=== PATIENT | female | born 1955 | race Caucasian/White ===

== ENCOUNTER 2019-11-16 00:50 | Day surgery (SDC) | payer BC, SELFPAY ==
[2019-11-13 13:19] VITALS: BMI 30.2
[2019-11-16 06:33] VITALS: BP 127/92; PULSE 77; RESP 18; TEMP 36.4; O2SAT 96; BMI 29.2
[2019-11-16] MEDS: LACTATED RINGERS 1,000 ML 150 ML IV CONT (06:47)
--- NOTE | 2019-11-16 07:08 | WPDANESEPPF ---
Anes - Initial Pre Proc Eval Procedure: Operation Date: 11/16/19 07:30 Proposed Procedures p Screening Colonoscopy - Aquiles Cavazos MD Date/Time: 11/16/19 07:08 Surgeon: Aquiles Cavazos MD Pre Op Diagnosis: Neoplasm Screening/ Fam Hx Colon CA Patient Data Age: 64 Gender: F Height: 5 ft 6 in Weight: 82 kg Last Vital Signs Temp 36.4 C 11/16/19 06:33 Pulse 77 11/16/19 06:33 Resp 18 11/16/19 06:33 BP 127/92 H 11/16/19 06:33 Pulse Ox 96 11/16/19 06:33 Allergies Allergy/AdvReac Type Severity Reaction Status Date / Time azithromycin Allergy Mild SEVERE Verified 11/16/19 06:30 ITCHEY FEET, RASH HEEL Macrolide Antibiotics Allergy Mild Verified 11/16/19 06:30 Quinolones Allergy Mild RASH LIKE Verified 11/16/19 06:30 SUNBURNED SKIN MOXIFLOXACIN HCL Allergy Mild RASH Uncoded 11/16/19 06:30 Home Medications Medication Instructions Recorded Confirmed Type bupropion HCl 300 mg 24 hr tablet, 300 mg PO QAM 08/09/19 11/13/19 History extended release escitalopram oxalate 10 mg tablet 10 mg PO DAILY 08/09/19 11/13/19 History levothyroxine 100 mcg tablet 100 mcg PO DAILY 08/09/19 11/13/19 History Patient hx anesthesia problems: none Family hx anesthesia problems: none PMFSH Past Medical History Medical History (Updated 11/16/19 @ 07:09 by Lionel Rosas MD) Hypothyroidism ETHAN (obstructive sleep apnea) Surgical History Surgical History (Updated 11/16/19 @ 07:09 by Lionel Rosas MD) H/O: hysterectomy Family History Family History (Updated 04/18/19 @ 12:33 by DOCTOR UNKNOWN) Grandparent Acute myocardial infarction, Onset Age: 52 Father Carcinoma of colon, Onset Age: 71 Family history of emphysema Family history of chronic obstructive pulmonary disease Mother Family history of malignant neoplasm of breast in first degree relative, Onset Age: 72 Family history of chronic obstructive pulmonary disease Family history of emphysema Other Family history of malignant neoplasm of breast Social History Social History Smoking status: Never smoker Second hand tobacco smoke exposure: No Alcohol intake: current Anes - Eval Final PreProcedure Day of Procedure 11/16/19 07:08 Patient weight: overweight Heart: regular rate and rhythm Lungs: clear to auscultation Airway: Mallampati scale class II and special considerations poor opening Neurological: alert and oriented ASA classification: II Emergent: no Anesthesia type and monitoring: general GIVS and standard monitoring Informed Consent: The patient's anesthetic plan and its attendant risks and benefits were discussed with the patient/family/POA. Questions were solicited and answers provided to the satisfaction of the patient/family/POA.
--- NOTE | 2019-11-16 07:24 | P.CONGI_ITS ---
Assessment and Plan Additional Plan This is a 64-year-old white female patient seen in evaluation at the request of Dr. Stacy. patient presents for neoplasia screening. Patient's current weight appetite bowel movements are normal. She denies any blood in her stools. Her weight is stable. She denies abdominal pain. She has had no bleeding. Her bowel habits are regular Family history is significant her father had colon cancer. Her paternal uncle in several other family members on her father's side of also had colon cancer Past medical history is significant for hypothyroidism. She is previous history of hysterectomy. Current medications include bupropion, escitalopram, levothyroxine Patient reports allergy to azithromycin and quinolone Physical exam reveals her to be alert. Vital signs stable. HEENT exam unremarkable. She is anicteric. Lungs are clear to auscultation and percussion. Heart is without murmur or extra sounds. Abdominal exam bowel sounds are present soft nontender with no hepatosplenomegaly. Digital external rectal exam normal. Impression 1. Family history of colon can Plan is for colonoscopy now and at intervals in the future GI Consult Note Consult date/time: 11/16/19 07:24 HPI: Lavinia Valiente is a 64 year old female [facility] Past Medical History Medical History (Updated 11/16/19 @ 07:09 by Lionel Rosas MD) Hypothyroidism ETHAN (obstructive sleep apnea) Surgical History Surgical History (Updated 11/16/19 @ 07:09 by Lionel Rosas MD) H/O: hysterectomy Family History Family History (Updated 04/18/19 @ 12:33 by DOCTOR UNKNOWN) Grandparent Acute myocardial infarction, Onset Age: 52 Father Carcinoma of colon, Onset Age: 71 Family history of emphysema Family history of chronic obstructive pulmonary disease Mother Family history of malignant neoplasm of breast in first degree relative, Onset Age: 72 Family history of chronic obstructive pulmonary disease Family history of emphysema Other Family history of malignant neoplasm of breast Social History Social History Smoking status: Never smoker Second hand tobacco smoke exposure: No Alcohol intake: current Meds Home Medications and Allergies Home Medications Medication Instructions Recorded Confirmed Type bupropion HCl 300 mg 24 hr tablet, 300 mg PO QAM 08/09/19 11/13/19 History extended release escitalopram oxalate 10 mg tablet 10 mg PO DAILY 08/09/19 11/13/19 History levothyroxine 100 mcg tablet 100 mcg PO DAILY 08/09/19 11/13/19 History Allergies Allergy/AdvReac Type Severity Reaction Status Date / Time azithromycin Allergy Mild SEVERE Verified 11/16/19 06:30 ITCHEY FEET, RASH HEEL Macrolide Antibiotics Allergy Mild Verified 11/16/19 06:30 Quinolones Allergy Mild RASH LIKE Verified 11/16/19 06:30 SUNBURNED SKIN MOXIFLOXACIN HCL Allergy Mild RASH Uncoded 11/16/19 06:30 Vital Signs Vital Signs - 24 hr 11/16/19 06:33 Temperature 36.4 C Pulse Rate 77 Respiratory Rate 18 Blood Pressure 127/92 H Pulse Oximetry 96
[2019-11-16 07:45] VITALS: BP 96/58; PULSE 73; RESP 15; O2SAT 96
[2019-11-16 07:55] VITALS: BP 89/62; PULSE 75; RESP 20; O2SAT 98
[2019-11-16 08:05] VITALS: BP 97/70; PULSE 66; RESP 16; O2SAT 99
== END 2019-11-16 08:17 | disposition home or self-care (01) ==
PROVIDERS: PCP Family Medicine; Visit Provider Internal Medicine Gastroenterology
PROC: 0DJD8ZZ Inspection of Lower Intestinal Tract, Via Natural or Artificial Opening Endoscopic (ICD-10-PCS; CPT 45378; principal; 2019-11-16 07:30)
DX: Z12.11 Encounter for screening for malignant neoplasm of colon (principal); K57.30 Diverticulosis of large intestine without perforation or abscess without bleeding; K64.8 Other hemorrhoids; Z80.0 Family history of malignant neoplasm of digestive organs; E03.9 Hypothyroidism, unspecified; G47.33 Obstructive sleep apnea (adult) (pediatric)
CPT/HCPCS: 45378; J2704; J7120

== ENCOUNTER 2025-07-02 19:31 | Emergency (ER) | payer MEDICARE, SELFPAY ==
--- OUTSIDE RECORDS SUMMARY | 2024-11-09 08:30 | XMS_ITS | Continuity of Care Document ---
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 Name Role Phone Mario Bishop OD Unavailable Unavailable Allergies, Adverse Reactions, Alerts Substance Reaction Status Criticality azithromycin Hives(mild)Hives(mild) Active Low Medications Medication Instructions Dosage Effective Dates (start - stop) Status Comments levothyroxine 100 mcg tablet take 1 tablet by oral route every day 100 MCG - Active famotidine 20 mg tablet take 1 tablet by oral route 2 times every day 20 MG - Active escitalopram 10 mg tablet take 1 tablet by oral route every day 10 MG - Active bupropion HCl XL 300 mg 24 hr tablet, extended release take 1 tablet by oral route every day 300 MG - Active buspirone 15 mg tablet take 1 tablet by oral route 2 times every day 15 MG - Active Procedures Procedure Date REFRACTION EYE EXAM ESTABLISHED PATIENT REFRACTION EYE EXAM ESTABLISHED PATIENT REFRACTION EYE EXAM ESTABLISHED PATIENT REFRACTION EYE EXAM, NEW PATIENT Advance Directives Directive Yes / No Effective Date File Name No Information Encounters Encounter Description Practice Location Reason(s) For Visit Diagnoses Date Provider Providers Copied on Encounter [facility], [facility], [address], [place], [id number] , [place] tel:[phone] [facility] vision exam (chief complaint) Myopia, right eyeHypermetropia, left eyeRegular astigmatism, bilateralPresbyopiaC ombined forms of age-related cataract, bilateral 5 Dario Martin. [address] [place] [address], [id number], [place]. tel:[phone] Referring Provider: Mario Bustillo, [address] [place] [address], [id number] . tel:[phone] [facility], [address] [place] [address], [id number] , [place] tel:[phone] [facility] vision exam (chief complaint) Myopia, right eyeHypermetropia, left eyeRegular astigmatism, bilateralPresbyopiaC ombined forms of age-related cataract, bilateralPuckering of macula, left eye 4 Dario Martin. [address] [place] [address], [id number], [place]. tel:[phone] Referring Provider: Mario Bustillo, [address] [place] [address], [id number] . tel:[phone] [facility], [address] [place] [address], [id number] , [place] [phone] [facility] vision exam (chief complaint) Myopia, right eyeHypermetropia, left eyeRegular astigmatism, bilateralPresbyopiaA ge-related nuclear cataract, bilateralOther specified postprocedural states 2 Lesly Quezada. [address] [place] [address], [id number], [place]. tel:[phone] Referring Provider: Pilar Beatty, [address] [place] [address], [id number] . tel:[phone] [facility], [address] [place] [address], [id number] , [place] [phone] [facility] decreased vision (chief complaint) Myopia, right eyeHypermetropia, left eyeRegular astigmatism, bilateralPresbyopiaA ge-related nuclear cataract, bilateralOther corneal scars and opacities Realwendy Betheath. [facility], [place], [place], [id number], [place]. 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 vision exam (chief complaint). Description: The 69 year old patient presents for Refractive Error OU, CAT OU and ERM OS for evaluation of vision exam in the right eye and left eye. Pt notes NVA is blurry w gls rx and she will experience headaches when on her phone and reading fine print. DVA OU good and stable w gls. Pt notes glare issues OU. Patient denies: pain or discomfort. Pt is not using any OTC AT. Reason For Referral Reason For Referral No Information History Of Present Illness Encounter Date Complaint History Of Prese nt Illness vision exam The 69 year old patient presents for Refractive Error OU, CAT OU and ERM OS for evaluation of vision exam in the right eye and left eye. Pt notes NVA is blurry w gls rx and she will experience headaches when on her phone and reading fine print. DVA OU good and stable w gls. Pt notes glare issues OU. Patient denies: pain or discomfort. Pt is not using any OTC AT. vision exam The 68 year old patient presents for evaluation of Refractive Error OU, Cataract OU and Hx of Lasik OU. Pt states D&N vision has been mostly good and stable since last exam in the right eye and left eye cc. Pt notes she feels that vision has decreased just slightly but not a dramatic change. Patient denies: pain or discomfort. Pt is not using eye meds or OTC AT. vision exam The 67 year old patient presents for f/u Refractive Error OU, Cataract OU, and Corneal scars. Patient states that she hasn't noticed any changes in vision or any problems since last exam 1 year ago. Vision good and stable and constant D & N c gls. Patient denies: pain or discomfort. Patient not using any eye meds or Generic AT. Patient does wear a CPAP now since prior exam. decreased vision The 66 Year old female presents for decreased vision in the right eye and left eye since last exam. It affects both near and far vision c gls. Pt reports night time driving has become more difficult. The patient denies COVID-19 symptoms - temperature normal and pain or discomfort. Pt is not using any OTC AT or eye meds. Pt has a HX or Lasik OS. 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
--- NOTE | ~2025-07-02 | CT_ITS ---
EXAMINATION: CT abdomen pelvis w con DATE: 07/03/2025 01:25 INDICATION: Epigastric abdominal pain radiating to the back. TECHNIQUE: Computed tomography (CT) of the abdomen and pelvis was performed with 100 mL Omnipaque 350 intravenous contrast. Automated exposure control and iterative reconstruction technique were employed. The dose-length product was 842.65 mGy-cm. COMPARISON: CT abdomen and pelvis 01/15/2005 FINDINGS: The visualized portions of lung bases demonstrate mild atelectasis. No pleural effusion. The heart size is normal. There is a trace pericardial effusion. There is a paraesophageal hiatal hernia where the gastric fundus remains below the diaphragm. There are gastric fundus is distended. The liver, gallbladder, spleen, pancreas, adrenal glands, and left kidney are normal. There are cysts in right kidney measuring up to 4.1 cm. There is diverticulosis of the colon without evidence of diverticulitis. The appendix is normal. There are no dilated loops of bowel. There are no pathologically enlarged lymph nodes. There is no free intraperitoneal fluid. There is moderate thoracic and lumbar spondy losis. There is mild chronic anterior wedging of multiple thoracic vertebral bodies. IMPRESSION: 1. Paraesophageal hiatal hernia with distention of the gastric fundus below the diaphragm, which causes mass effect on the gastric antrum at the esophageal hiatus. Reviewed, dictated and finalized at location E. IMPRESSION: 1. Paraesophageal hiatal hernia with distention of the gastric fundus below the diaphragm, which causes mass effect on the gastric antrum at the esophageal hi atus.
--- NOTE | ~2025-07-02 | XR_ITS ---
XR chest 2V HOSTORY: epigastric pain/nausea COMPARISON:[ None] FINDINGS: Frontal and lateral views of the chest were obtained. The lungs are clear. Left retrocardiac airspace opacity is noted. The heart size is normal in size. Pulmonary vasculature is unremarkable. Osseous structures are intact. IMPRESSION: No acute lung findings.] Left retrocardiac airspace opacity suggestive of a moderate-sized hiatal hernia. Reviewed, dictated and finalized at location S. IMPRESSION: No acute lung findings.] Left retrocardiac airspace opacity suggestive of a moderate-sized hiatal hernia .
[2025-07-02 19:37] VITALS: BP 150/98; PULSE 88; RESP 20; TEMP 36.6; O2SAT 97
--- NOTE | 2025-07-02 19:40 | ECG_ITS ---
Test Date: 2025-07-02 19:45:04 Measurements Intervals [place] Rate: 75 P: 38 ME: 186 QRS: -46 QRSD: 80 T: 38 QT: 358 QTc: 402 Interpretive Statements SINUS RHYTHM POSSIBLE RIGHT VENTRICULAR CONDUCTION DELAY LEFT ANTERIOR FASCICULAR BLOCK POSSIBLE ANTERIOR MYOCARDIAL INFARCTION , OF INDETERMINATE AGE BASELINE ARTIFACT- I, II, III, AVR, AVL, V1 ABNORMAL ECG No previous ECG available for comparison Electronically Signed On 07-03-2025 05:30:15 CDT by Christopher Lynch D.O.
[2025-07-02 21:31] VITALS: BP 153/91; PULSE 76; RESP 16; TEMP 36.6; O2SAT 97
[2025-07-02 21:39] LABS: Hematocrit 40.7 % (37.0-47.0); Hemoglobin 13.5 g/dL (12.0-15.0); Immature Granulocyte Percent A 0.1 % (0-0.5); Lymphocytes Absolute Auto 0.88 K/mm3 (0.9-3.2); Mean Corpuscular HGB Conc 33.2 g/dl (32-36); Mean Corpuscular Hemoglobin 29.4 pg (26-34); Mean Corpuscular Volume 88.7 fl (80-100); Nucleated Red Blood Cells Absolute Auto 0.000 K/mm3 (0.0-0.012); Nucleated Red Blood Cells Perc 0.0 % (0.0-0.2); Platelet Count Result 239 k/mm3 (150-375); Red Blood Count 4.59 M/mm3 (4.2-5.4); White Blood Count 6.8 K/mm3 (4.5-10.0)
[2025-07-02 21:49] LABS: Alanine Aminotransferase 32 U/L (6-35); Albumin Level 4.8 g/dL (3.5-5.1); Alkaline Phosphatase 114 U/L (38-126); Anion Gap 11 mmol/L (4-12); Aspartate Amino Transferase 40 U/L (14-36); Bilirubin,Total 0.4 mg/dL (0.2-1.3); Blood Urea Nitrogen 26 mg/dL (7-17); Calcium 9.6 mg/dL (8.4-10.2); Carbon Dioxide 24 mmol/L (22-30); Chloride 103 mmol/L (98-107); Estimated CRCL calculation 54 ml/min; Estimated Glomerular Filt Rate 57; Glucose 123 mg/dL (65-110); Lipase 125 U/L (23-300); Potassium 4.1 mmol/L (3.4-5.0); Sodium 138 mmol/L (137-145); Total Protein 8.4 g/dL (6.3-8.2)
[2025-07-02 21:51] LABS: INR 1.1; Prothrombin Time 13.7 Seconds (11.1-14.7)
[2025-07-02 21:52] LABS: Partial Thromboplastin Time 34.1 Seconds (22.3-36.8)
[2025-07-02 22:01] LABS: Troponin I < 0.012 ng/mL (0.000-0.034)
[2025-07-02 22:19] VITALS: BP 137/89; PULSE 75; RESP 19; O2SAT 95
[2025-07-03 00:01] VITALS: BP 134/85; PULSE 73; RESP 19; O2SAT 93
--- NOTE | 2025-07-03 00:08 | ECG_ITS ---
Test Date: 2025-07-03 00:14:28 Measurements Intervals [place] Rate: 75 P: 53 MI: 194 QRS: -27 QRSD: 85 T: 29 QT: 391 QTc: 437 Interpretive Statements SINUS RHYTHM POSSIBLE RIGHT VENTRICULAR CONDUCTION DELAY CONSIDER ANTERIOR INFARCT, AGE INDETERMINATE BORDERLINE ST-T WAVE ABNORMALITY- DIFFUSE LEADS BASELINE ARTIFACT- I, II, AVR, AVL, V1-V2 ABNORMAL ECG Compared to ECG 07/02/2025 19:45:04 Left anterior fascicular block no longer present Electronically Signed On 07-03-2025 05:36:03 CDT by Christopher Lynch D.O.
[2025-07-03 00:42] LABS: Troponin I < 0.012 ng/mL (0.000-0.034)
--- OUTSIDE RECORDS SUMMARY | 2025-07-03 00:50 | XMS_ITS | Clinical Summary ---
Author Organization [facility] Address [address] [place] [address] Phone Care Team Providers Care Manager Aerospace Name Role Phone Liseth Zamora MD Primary Care Provider Shannon Flores RN Unavailable Unavailable Ludivina Damon MD Unavailable Lynn Carney RN Unavailable Unavaila Ruy Arora MD Unavailable [phone] Amina Allen APRN, PAPER REELER Unavailable [phone] Allergies Active Allergy Reactions Criticality Noted Date Comments Moxifloxacin Hives 04/03/2022 Azithromycin Itching 09/20/2004 Macrolides And Ketolides Unknown 05/18/2022 Quinolones Unknown 05/18/2022 Medications Dupilumab (Dupixent) 300 MG/2ML Solution Pen-injector 2 mL by Subcutaneous route every 14 days. Every other Wednesday Active Probiotic Product (Probiotic Daily) Capsule Take 1 Capsule by mouth 2 times daily. 60 Capsule 023 Active MULTIPLE VITAMIN PO Take 1 Capsule by mouth daily. Active Cholecalciferol (Vitamin D3) 125 MCG (5000 UT) Capsule Take 1 Capsule by mouth daily. Active Ferrous Sulfate (Iron) 325 (65 Fe) MG Tablet Take 1 Tablet by mouth daily. Active anastrozole (ARIMIDEX) 1 MG Tablet Take 1 mg by mouth daily. per Katty Gigi Active CALCIUM PO Take by mouth. Acti ve Cetirizine HCl (ZYRTEC PO) Take by mouth. Act sherie guaiFENesin (MUCINEX PO) Take by mouth. Ac tive Pseudoephedrine HCl (DECONGESTANT PO) Take by mouth. Activ e buPROPion (WELLBUTRIN) 300 MG TABLET SR 24 HR XL tabletIndication s:Anxiety and depression Take 1 Tablet by mouth every morning. 90 Tablet 3 024 Active montelukast (SINGULAIR) 10 MG TabletIndication s:Asthma due to environmental allergies TAKE 1 TABLET EVERY EVENING 90 Tablet 3 025 Active famotidine (PEPCID) 20 MG TabletIndication s:Hypothyroidism , unspecified type,Gastroesoph ageal reflux disease, unspecified whether esophagitis present TAKE 1 TABLET TWICE A DAY 180 Tablet 3 025 Active levothyroxine (SYNTHROID) 100 MCG TabletIndication s:Hypothyroidism , unspecified type TAKE 1 TABLET DAILY 90 Tablet 3 025 Active naltrexone (DEPADE) 50 MG TabletIndication s:Class 1 obesity with alveolar hypoventilation, serious comorbidity, and body mass index (BMI) of 33.0 to 33.9 in adult Take 1 Tablet by mouth daily. 90 Tablet 025 Active escitalopram (LEXAPRO) 20 MG TabletIndication s:Anxiety and depression TAKE 1 TABLET DAILY 90 Tablet 3 025 Active escitalopram (LEXAPRO) 20 MG TabletIndication s:Anxiety and depression TAKE 1 TABLET DAILY 90 Tablet 3 024 2024 Discontinued tirzepatide-weig ht management (Zepbound) 2.5 MG/0.5ML Solution Auto-injectorInd ications:Morbid obesity,ETHAN (obstructive sleep apnea) 2.5 mg by Subcutaneous route once a week. 2 mL 025 2024 Discontinued(M ed List Clean Up) Active Problems Problem Noted Date Diagnosed Date Colon cancer screening 11/13/2024 Overview (11/13/2024): Father with colon cancer at 70. Paternal brother with colon cancer at 79. Paternal and and great aunt with colon cancer. Colonoscopy last 2019 in [place]. Colonoscopy 11/13/2024. Repeat due 10/2029. Hypothyroidism 12/21/2022 Infiltrating ductal carcinoma of female breast 0 12/11/2022 Overview (12/11/2022): Added automatically from request for surgery [id number] Pilonidal cyst 11/17/2022 Bilateral malignant neoplasm of breast in female 11/17/2022 Anxiety and depression 11/17/2022 Morbid obesity 10/28/2022 GERD (gastroesophageal reflux disease) Hyperlipidemia 10/28/2022 ETHAN (obstructive sleep apnea) 10/28/2022 Class 1 obesity with alveola r hypoventilation, serious comorbidity, and body mass index (BMI) of 33.0 to 33.9 in adult 07/15/2022 Prediabetes 07/15/2022 Elevated fasting blood sugar 05/18/2022 Esophageal dysphagia 05/18/2022 Decreased GFR 05/18/2022 Asthma due to environmental allergies 05/18/2022 Encounters Date Type Department Care Team Description 06/21/2025 9:40 AM CDT Office Visit [address] [address] Liseth Zamora MD Mixed hyperlipidemia (Primary Dx); Prediabetes; Hypothyroidism, unspecified type Discharge Disposition: Discharged to home or Selfcare 06/19/2025 Travel 06/14/2025 9:30 AM CDT Outpatient Clinic Visit [facility] [address] [place] [address] Elina Rosenbaum APRN, Luisa Lane APRN, PAPER REELER Class 1 obesity with alveolar hypoventilation, serious comorbidity, and body mass index (BMI) of 33.0 to 33.9 in adult (HCC) (Primary Dx) Discharge Disposition: Discharged to home or Selfcare 06/13/2025 Travel 06/11/[address] [phone] Liseth Zamora MD Medication Refill 06/04/2025 Telephone [facility] [address] [place] [phone] Luisa Thornton APRN, MYLES Medication Refill 2025 10:00 AM CDT Outpatient Clinic Visit [facility] [address] [place] [phone] Luisa Thornton APRN, MYLES Morbid obesity (HCC) (Primary Dx); ETHAN (obstructive sleep apnea) Discharge Disposition: Discharged to home or Selfcare 05/28/2025 Travel 05/17/2025 9:30 AM CDT Outpatient Clinic Visit [facility] [address] [place] [phone] Elina Rosenbaum APRN, DAVID Class 1 obesity with alveolar hypoventilation, serious comorbidity, and body mass index (BMI) of 33.0 to 33.9 in adult (HCC) (Primary Dx); Mixed hyperlipidemia; Prediabetes; Hypothyroidism, unspecified type; Asthma due to environmental allergies; ETHAN (obstructive sleep apnea); Gastroesophageal reflux disease, unspecified whether esophagitis present Discharge Disposition: Discharged to home or Selfcare 05/17/2025 Patient Outreach [facility] [address] [place] [address] Lynn Carney RN 05/17/2025 Travel 04/04/2025 9:00 AM CDT Education [facility] [address] [place] [phone] Liseth Zamora MD Mount, Christine M, RN Obesity, Class I, BMI 30-34.9 (Primary Dx) Discharge Disposition: Discharged to home or Selfcare 04/03/2025 Travel from Last 3 Months Immunizations Immunization Administration Dates Next Due Influenza Vaccine, Quadrivalent, PF 07/04/2019 Influenza, High-dose, Quadrivalent 06/17/2021, Influenza, Quadrivalent, Adjuvanted 06/07/2023,1 Influenza, Trivalent, Adjuvanted, PF 06/21/2024 Influenza, high-dose, trivalent, PF 06/17/2021 Pneumococcal conjugate PCV20 , polysaccharide [id number] conjugate, adjuvant, PF 07/13/2022 Zoster Vaccine, live 06/16/2017 Family History Medical History Relation Name Comments Chronic Obstructive Pulmonary Disease Father Colon Cancer Father Emphysema Father Breast Cancer Mother Chronic Obstructive Pulmonary Disease Mother Ovarian Cancer Neg Hx Relation Name Status Comments Father Mother Social History Tobacco Use Types Packs/Day Years Used Date Smoking Tobacco: Never Passive Smoke Exposure: Never Smokeless Tobacco: Never Tobacco Cessation:Counseling Given: Not Answered Alcohol Use Standard Drinks/Week Comments Yes 1 (1 standard drink = 0.6 oz pur e alcohol) [facility] Utilities Answer Date Recorded In the past 12 months has e electric, gas, oil, or water company threatened to shut off services in your home? No 12/19/2024 Social Connection and Isolation Panel Answer Date Recorded In a typical week, how many times do you talk on the phone with family, friends, or neighbors? More than three times a week 12/19/2024 How often do you get togethe r with friends or relatives? Twice a week 12/19/2024 How often do you attend chur ch or religion services? Never 12/19/2024 Do you belong to any clubs o r organizations such as buddhist groups, unions, fraternal or athletic groups, or school groups? Yes 12/19/2024 How often do you attend meet ings of the clubs or organizations you belong to? More than 4 times per year 12/19/2024 Are you , , di vorced, , never , or living with a partner? 12/19/2024 AUDIT-C Answer Date Recorded Q1: How often do you have a drink containing alcohol? Never 12/19/2024 Q2: How many drinks containi ng alcohol do you have on a typical day when you are drinking? Patient does not drink Q3: How often do you have si x or more drinks on one occasion? Never 12/19/2024 Overall Financial Resource Strain (CARDIA) Answe r Date Recorded How hard is it for you to pa y for the very basics like food, housing, medical care, and heating? Not very hard 12/19/2024 PHQ-2 Answer Date Recorded Total Score - Questions 1-9 6 03/20 [facility] [place] [facility] Occupat ional Health - Occupational Stress Questionnaire Answer Date Recorded Do you feel stress - tense, restless, nervous, or anxious, or unable to sleep at night because your mind is troubled all the time - these days? Not at all 12/19/2024 Exercise Vital Sign Answer Date Recorde d On average, how many days pe r week do you engage in moderate to strenuous exercise (like a brisk walk)? 3 days 12/19/2024 On average, how many minutes do you engage in exercise at this level? 20 min 12/19/2024 Hunger Vital Sign Answer Date Recorded Within the past 12 months, y ou worried that your food would run out before you got the money to buy more. Never true 12/20/19 25 Within the past 12 months, t he food you bought just didn't last and you didn't have money to get more. Never true 12/19/2024 PRAPARE - Transportation Answer Date Re corded In the past 12 months, has l ack of transportation kept you from medical appointments or from getting medications? No 09/2024 In the past 12 months, has l ack of transportation kept you from meetings, work, or from getting things needed for daily living? No 12/19/2024 Housing Stability Vital Sign Answer Khari e Recorded In the last 12 months, was t here a time when you were not able to pay the mortgage or rent on time? No 10/26/2023 In the last 12 months, how many places have you lived? 1 10/26/2023 In the last 12 months, was t here a time when you did not have a steady place to sleep or slept in a retirement (including now)? No 10/26/2023 Housing Stability Vital Sign Answer Khari e Recorded In the last 12 months, was t here a time when you were not able to pay the mortgage or rent on time? No 12/19/2024 In the past 12 months, how m any times have you moved where you were living? 0 12/19/2024 At any time in the past 12 m onths, were you homeless or living in a retirement (including now)? No 12/19/2024 Education Answer Date Recorded What is the highest level of school you have completed or the highest degree you have received? Associate degree: occupational, technical, or vocational program 11/16/2022 Sexually Active Control Partners Comments Not Currently Comments No Sex and Gender Information Value Date Recorded Sex Assigned at Not on file Legal Sex Female 10:19 PM CDT Gender Identity Not on file Sexual Orientation Not on file Last Filed Vital Signs Vital Sign Reading Time Taken Comments Blood Pressure 100/62 06/21/2025 9:35 AM CDT Pulse 63 06/21/2025 9:35 AM CDT Temperature 36.5 C (97.7 F) 06/21/2025 9:35 AM CDT Respiratory Rate 20 06/21/2025 9:35 AM CDT Oxygen Saturation 94% 06/21/2025 9:35 AM CDT Inhaled Oxygen Concentration - - Weight 91.7 kg (202 lb 3.2 oz) 06/21/2025 9:35 A M CDT Height 167.6 cm (5' 6) 06/21/2025 9:35 AM CDT Body Mass Index 32.64 06/21/2025 9:35 AM CDT Plan of Treatment Upcoming Encounters Date Type Department Care Team (Latest Contact Info) Description 07/12/2025 9:30 AM CDT Outpatient Clinic Visit [facility] [address] [place] [address] Luisa Thornton APRN, PAPER REELER [address] [place] [address] Discharge Disposition: Discharged to home or Selfcare 10/11/2025 9:30 AM CONSTRUCTION OR LEAK GANG LABORER Outpatient Clinic Visit [facility] [address] [place] [address] Luisa Thornton APRN, PAPER REELER [address] [place] [place] [address] Discharge Disposition: Discharged to home or Selfcare 11/15/2025 9:30 AM CONSTRUCTION OR LEAK GANG LABORER Outpatient Clinic Visit [facility] [address] [place] [address] Luisa Thornton APRN, PAPER REELER [address] [place] [address] Discharge Disposition: Discharged to home or Selfcare 12/13/2025 9:30 AM CDT [facility]patient [facility] [address] [place] [address] Luisa Thornton APRN, PAPER REELER [address] [place] [address] 12/13/2025 11:00 AM CDT [facility] [place] [facility] [address] [place] [phone] Ludivina Damon MD [address] [place] [address] 12/20/2025 9:40 AM CDT Office Visit [facility] [address] [place] [address] Lsieth Zamora MD [address] [place] [address] Health Maintenance Due Date Last Done Comments TdaP Immunization 1955 Cologuard 2000 Immunochemical Fecal Occult Blood 2000 Respiratory Syncytial Virus (RSV) Immunization (Adult) (1 - Risk 60-74 years 1-dose series) 2015 Medicare Initial AWV [id number] 05/21/2021 Mammogram Unilateral 10/13/2023 10/13/2022, 08/06/2022, 07/07/2022 Zoster Immunization (2 of 2) 05/09/2025 03/14/2025, 06/16/2017 Influenza Immunization (#1) 2025 10/10/2023, 06/07/2023, 07/13/2022, Additional history exists SARS-COV-2 Immunization ( season) 2025 06/21/2024, 07/14/2023, 08/25/2022, Additional history exists DEXA Bone Density 03/08/2027 03/08/2025, 02/04/2023 Colonoscopy 11/12/2029 11/13/2024, 11/16/2019 Colorectal Cancer Screening 11/12/2029 Pneumococcal Immunization (50+ years) Completed 07/13/2022 Pneumococcal Immunization Combined Discontinued 07/13/2022 Mammogram Discontinued 10/13/2022, 07/07/2022 Hepatitis C Virus (HCV) Screening Completed 10/15/2022 Hepatitis B Immunization Aged Out No longer eligible based on patient's age to complete this topic Human Papillomavirus (HPV) Immunization Aged Out No longer eligible based on patient's age to complete this topic Meningococcal Immunization (ACWY) Aged Out No longer eligible based on patient's age to complete this topic Rotavirus Immunization Aged Out No lo nger eligible based on patient's age to complete this topic Goals Goal Patient Goal Type Associated Problems Recent Progress Patient-Stated? Author Patient will have better understanding of her cancer diagnosis Care Coordination No Shannon Flores, RN Note: Goal Reviewed with: patient Readiness to change: Ready to change Department associated with goal: [facility] Steps to achieve goal: Patient will learn the pathophysiology of her cancer diagnosis, including the implications of hormone receptors Patient will learn about typical treatment options for breast cancer 3. Patient will learn the different members of her care team Pursue weight loss Healthy Lifestyle On track(06/14 10:18 AM CDT) No Pricilla Cifuentes, RN Note: Goal Reviewed with: patient Readiness to change: Ready to change Department associated with goal: [facility] Steps to achieve goal: Attend onboarding Short term goal(s): help me feel better terminal operations manager goal(s): same as above Goal weight: 160 lbs. Procedures Procedure Name Priority Date/Time Associated Diagnosis Comments [facility]LO BONE DENSITOMETRY AXIAL SKELETON Routine 03/08/2025 1:59 PM CDT Malignant neoplasm of upper-inner quadrant of right female breast, unspecified estrogen receptor status (HCC) Malignant neoplasm of overlapping sites of left female breast, unspecified estrogen receptor status (HCC) group home (current) use of aromatase inhibitors COLONOSCOPY Routine 11/13/2024 2:42 PM CONSTRUCTION OR LEAK GANG LABORER Colon cancer screening HEPATITIS C ANTIBODY Routine 10/15/2022 1:31 PM CONSTRUCTION OR LEAK GANG LABORER Encounter for observation for other suspected diseases and conditions ruled out Papular atopic dermatitis Dyshidrosis Encounter for long-term (current) use of medications Special screening examination for viral disease [facility] MRI BREAST W/WO CONTRAST,BILATERAL Less Than 2 weeks 10/13/2022 4:22 PM CONSTRUCTION OR LEAK GANG LABORER Atypical ductal hyperplasia of right breast Ductal hyperplasia, atypical, breast Other specified disorders of breast from Last 3 Months or Most Recently Relevant to Health Maintenance Results * [facility] BONE DENSITOMETRY AXIAL SKELETON (03/08/2025 1:59 PM CDT) Anatomical Region Laterality Modality BODY N/A Other 03/08/2025 1:59 PM CDT Impressions 03/08/2025 2:06 PM CDT IMPRESSION: 1. WHO Classification: Osteopenia. Narrative 03/08/2025 2:06 PM CDT DICTATING PHYSICIAN: Dipak Delong M.D. -- [facility] EXAM: [facility] BONE DENSITOMETRY AXIAL SKELETON 03/08/2025 1:59 PM HISTORY: Malignant neoplasm of upper-inner quadrant of right female breast, Malignant neoplasm of overlapping sites of left female breast, group home (current) use of aromatase inhibitors COMPARISON: 02/04/2023. FINDINGS: Femoral Neck BMD: 0.638 g/sq cm . Femoral Neck T-score: -1.9. Previously -1.5, denoting a change of -6.0%, at the 95% confidence level. Total Hip BMD: 0.791 g/sq cm. Total Hip T-score: -1.2. Previously -0.9, denoting a change of -4.7%, at the 95% confidence level. Total L-Spine BMD: 0.935 g/sq cm. Total L-Spine T-score: -1.0. Previously -0.5, denoting a change of -6.1%, at the 95% confidence level. Ten Year Fracture Risk: - Major Osteoporotic Fracture: 10%. - Hip Fracture: 1.7%. Procedure Note Dipak Delong MD - 03/08/2025 DICTATING PHYSICIAN: Dipak Delong M.D. -- [facility] EXAM: [facility] BONE DENSITOMETRY AXIAL SKELETON 03/08/2025 1:59 PM HISTORY: Malignant neoplasm of upper-inner quadrant of right femalebreast, Malignant neoplasm of overlapping sites of left female breast,group home (current) use of aromatase inhibitors COMPARISON: 02/04/2023. FINDINGS: Femoral Neck BMD: 0.638 g/sq cm . Femoral Neck T-score: -1.9. Previously -1.5, denoting a change of -6.0%,at the 95% confidence level. Total Hip BMD: 0.791 g/sq cm. Total Hip T-score: -1.2. Previously -0.9, denoting a change of -4.7%, atthe 95% confidence level. Total L-Spine BMD: 0.935 g/sq cm. Total L-Spine T-score: -1.0. Previously -0.5, denoting a change of -6.1%,at the 95% confidence level. Ten Year Fracture Risk: - Major Osteoporotic Fracture: 10%. - Hip Fracture: 1.7%. IMPRESSION: 1. WHO Classification: Osteopenia. Katty Yu MD IMG DEXA ORDERABLES F inal Result * Colonoscopy w Polypectomy (11/13/2024 2:42 PM CONSTRUCTION OR LEAK GANG LABORER) Anatomical Region Laterality Modality Endoscopy Narrative 11/13/2024 4:09 PM CONSTRUCTION OR LEAK GANG LABORER Table formatting from the original result was not included. Indication Colon cancer screening Impression Colon polyps x 3; s/p polypectomy Small hemorrhoids Family history of colon cancer Recommendation Await pathology results Repeat colonoscopy in 5 years, due: 11/12/2029 Findings Three sessile and adenomatous-appearing Anahi Is polyps measuring smaller than 5 mm in the ascending colon; performed cold snare with complete en bloc removal and retrieved specimen The ileocecal valve, appendiceal orifice, cecum, hepatic flexure, transverse colon, splenic flexure, descending colon, sigmoid colon, rectosigmoid and rectum appeared normal. Internal small hemorrhoids Details of the Procedure The patient underwent monitored anesthesia care, which was administered by an anesthesia professional. The patient's blood pressure, level of consciousness, oxygen, respirations, heart rate, ECG and ETCO2 were monitored throughout the procedure. A digital rectal exam was performed. The scope was introduced through the anus and advanced to the cecum. Retroflexion was performed in the rectum. The quality of bowel preparation was evaluated using the [place] Bowel Preparation Scale with scores of: right colon = 2, transverse colon = 2, left colon = 2. The total BBPS score was 6. Bowel prep was adequate. The patient experienced no blood loss. The procedure was not difficult. The patient tolerated the procedure well. There were no apparent adverse events. Medications See anesthesia record. Preprocedure A history and physical has been performed, and patient medication allergies have been reviewed. The patient's tolerance of previous anesthesia has been reviewed. The risks and benefits of the procedure and the sedation options and risks were discussed with the patient. All questions were answered and informed consent obtained. ASA Class II Mild Syst II Mild Systemic Disease Events Procedure Events Event Event Time ENDO SCOPE IN TIME 11/13/2024 2:16 PM ENDO CECUM REACHED 11/13/2024 2:21 PM ENDO SCOPE OUT TIME 11/13/2024 2:42 PM Scope Type: Colonoscope [id number] Insertion time: 4m 53s Withdrawal time: 20m 49s Specimens ID Type Source Tests Collected by Time A : Gastric Bxs Tissue Stomach PATHOLOGY SURGICAL Bjorn Coleman MD 11/13/2024 1411 B : Ascending Colon Polyps Polyp Colon, Right/Ascending PATHOLOGY SURGICAL Bjorn Coleman MD 11/13/2024 1421 Disposition Patient was approved for transfer to recovery at 2:45 PM CONSTRUCTION OR LEAK GANG LABORER. Aleksander Hicks MD-GI fellow Lavinia Valiente 1955 I was present and scrubbed for the entire procedure and carried out parts of the procedure as necessary. I have reviewed the patient's findings with the fellow and agree with the documentation as noted. Small polyps which were removed. Hemorrhoids. Follow up pathology results, repeat colonoscopy in 5 years. Bjorn Coleman MD, 11/13/2024, 4:08 PM CONSTRUCTION OR LEAK GANG LABORER [facility]- Gastroenterology us Bjorn Coleman MD GI PROCEDURE ORDERABLES Fi nal Result * HEPATITIS C ANTIBODY (10/15/2022 1:31 PM CONSTRUCTION OR LEAK GANG LABORER) hepatitis C antibody 0.07 <1 S/CO [facility] ARCH [id number] 10/15/2022 11:01 PM CONSTRUCTION OR LEAK GANG LABORER [facility] Comment: Signal/Cutoff ratio < 0.79 is Nondetected Signal/Cutoff ratio 0.80-0.99 is Grayzone Signal/Cutoff ratio > 0.99 is Detected Supplemental assays are recommended if signal/cutoff ratio is >/=1.00. Signal/cutoff ratio result >/= 5.00 is 97% predictive of positivity for recombinant immunoblot assay (RIBA) and will be reported to the [place] Department of Public Health as required. Blood Venipuncture / Unknown 10/15/2022 1:31 PM CONSTRUCTION OR LEAK GANG LABORER 10/15/2022 1:32 PM CONSTRUCTION OR LEAK GANG LABORER us Jaqueline Lorenzana PAC CHEMISTRY ORDERABLES Final R esult [facility] [address] [place] [address], [place] * CARLO MRI BREAST W/WO CONTRAST,BILATERAL (10/13/2022 4:22 PM CONSTRUCTION OR LEAK GANG LABORER) Anatomical Region Laterality Modality breast Bilateral Magnetic Resonan ce 10/13/2022 4:22 PM CONSTRUCTION OR LEAK GANG LABORER Impressions 10/14/2022 2:46 PM CONSTRUCTION OR LEAK GANG LABORER IMPRESSION: 1. Abnormal areas of nodular enhancement in the breasts bilaterally. A single focus in the upper central right breast and a single focus in the subareolar left breast are found. These areas are suspicious and further evaluation with biopsy is suggested. I would begin with sonography. If these are found sonographically, ultrasound-guided biopsy may be performed. If these are not found sonographically then MRI guided biopsy may be necessary. 2. Redundant fonseca of the silicone implants. Integrity of the fonseca is not definite. If management will change based on the presence or absence of a leak, repeat MRI with implant protocol could be performed. BI-RADS assessment code: 4 suspicious abnormality, biopsy should be considered. Narrative 10/14/2022 2:46 PM CONSTRUCTION OR LEAK GANG LABORER DICTATING PHYSICIAN: Vern Smith M.D. HISTORY: Family history of breast cancer, atypical ductal hyperplasia of the right breast. EXAM: MRI of the breasts with and without contrast 10/13/2022. 20 mL of ProHance was used on a 1.5 Lisa magnet and a dedicated breast coil. FINDINGS: A scattered fibroglandular parenchymal pattern is present with a mild background of enhancement. A densely enhancing poorly demarcated mass is present in the central upper right breast adjacent to the subglandular implant. This measures about 13 mm in diameter at table height -18.73. The enhancement is rapid with rapid washout. There is an immediately adjacent area of prolonged enhancement which increases the size of the lesion to about 17 mm greatest dimension. A focal area of nodularity is present in the subareolar left breast table height -53.8. This also has dense enhancement with rapid washout. This measures about 7 mm in diameter. Morphology of the breast tissue is otherwise normal in appearance and no other suspicious areas of enhancement. No unusual adenopathy. Bilateral subglandular silicone implants are present. The fonseca of the implant appear to be redundant and the integrity of the wall of the implant is not determined with confidence on this exam. Procedure Note Vern Smith MD - 10/14/2022 DICTATING PHYSICIAN: Vern Smith M.D. HISTORY: Family history of breast cancer, atypical ductal hyperplasia ofthe right breast. EXAM: MRI of the breasts with and without contrast 10/13/2022. 20 mL of ProHance was used on a 1.5 Lisa magnet and a dedicated breastcoil. FINDINGS: A scattered fibroglandular parenchymal pattern is present with amild background of enhancement. A densely enhancing poorly demarcated massis present in the central upper right breast adjacent to the subglandularimplant. This measures about 13 mm in diameter at table height -18.73. Theenhancement is rapid with rapid washout. There is an immediately adjacentarea of prolonged enhancement which increases the size of the lesion toabout 17 mm greatest dimension. A focal area of nodularity is present inthe subareolar left breast table height -53.8. This also has denseenhancement with rapid washout. This measures about 7 mm in diameter.Morphology of the breast tissue is otherwise normal in appearance and noother suspicious areas of enhancement. No unusual adenopathy. Bilateral subglandular silicone implants are present. The fonseca of theimplant appear to be redundant and the integrity of the wall of theimplant is not determined with confidence on this exam. IMPRESSION: 1. Abnormal areas of nodular enhancement in the breasts bilaterally. Asingle focus in the upper central right breast and a single focus in thesubareolar left breast are found. These areas are suspicious and furtherevaluation with biopsy is suggested. I would begin with sonography. Ifthese are found sonographically, ultrasound- guided biopsy may beperformed. If these are not found sonographically then MRI guided biopsymay be necessary. 2. Redundant fonseca of the silicone implants. Integrity of the fonseca is notdefinite. If management will change based on the presence or absence of aleak, repeat MRI with implant protocol could be performed. BI-RADS assessment code: 4 suspicious abnormality, biopsy should beconsidered. Gisela Liz [facility] IMG MR ORDERABLES Fi nal Result from Last 3 Months or Most Recently Relevant to Health Maintenance Insurance MEDICARE [facility] Advance Directives * Full Code (Latest Code Status on File) Date Activated Date Inactivated Comments 01/11/2023 2:06 PM 01/02/2024 7:28 PM Care Teams Manager Aerospace Relationship Specialty Start Date End Date Liseth Zamora MD PCP - General Family Medicine 03/17/22 Shannon Flores RN MD Oncology Nurse Navigator 12/11/22 Ludivina Damon MD MD Consulting Physician Cardiovascular Disease - Cardiology 05/18/23 Lynn Carney RN Oncology Nurse Navigator 06/30/23 Ruy Lopez MD [address] [place] [address] Consulting Physician General Surgery 03/27/24 Amina Allen APRN, PAPER REELER [address] [place] [address] Nurse Practitioner Advanced Practice Nurse 12/05/24
--- OUTSIDE RECORDS SUMMARY | 2025-07-03 00:50 | XMS_ITS | Clinical Summary ---
Author Organization [facility] Address [address] [place] [address] Care Team Providers Care Washroom Attendant Name Role Phone Unavailable Primary Care Provider Unavailabl e Source Comments PLEASE NOTE, if this patient is a minor, it may be UNLAWFUL to discuss sensitive information that is contained in these records (such as FAMILY PLANNING, MENTAL HEALTH or SUBSTANCE ABUSE) with the minor patient's parent or other person without the patient's specific authorization.[facility] Allergies Active Allergy Reactions Criticality Noted Date Comments Azithromycin Itching,Rash,Hives Low 09/20/2004 Quinolones Hives,Itching,Rash,Unknown Low 2 Medications anastrozole (ARIMIDEX) 1 mg tablet Take 1 mg by mouth daily. Active buPROPion HCL (WELLBUTRIN XL) 300 mg 24 hr tablet Take 300 mg by mouth every morning. 10/26/2023 Active cholecalciferol (VITAMIN D-3) 125 mcg (5,000 unit) capsule Take 1 Capsule by mouth daily. Active dupilumab (DUPIXENT PEN) 300 mg/2 mL pnij Inject 2 mL into the skin. Active ferrous sulfate 325 mg (65 mg iron) tablet Take 1 Tablet by mouth daily. Active famotidine (PEPCID) 20 mg tablet 20 mg 2 (two) times daily. 08/30/2022 Active L. acidophilus/Bif id. animalis 32 billion cell cap Take 1 Capsule by mouth twice a day. 12/30/2022 Active levothyroxine 100 mcg tablet Take 100 mcg by mouth daily. 03/12/2025 Active montelukast (SINGULAIR) 10 mg tablet 10 mg every evening. 10/16/2024 Active semaglutide, weight loss, (WEGOVY) 0.25 mg/0.5 mL pnij Inject 0.25 mg into the skin once a week. 02/13/2025 Active escitalopram (LEXAPRO) 20 mg tablet Take 20 mg by mouth daily. 06/16/2024 Active Active Problems No known active problems Encounters Date Type Department Care Team Description 05/11/2025 1:30 PM CDT Office Visit [address] [address] Gabino Foster, GERTRUDIS from Last 3 Months Social History Tobacco Use Types Packs/Day Years Used Date Smoking Tobacco: Never Smokeless Tobacco: Never Tobacco Cessation:Counseling Given: Not Answered Social Connections Answer Date Recorded How often do you see or talk to people that you care about and feel close to? (For example: talking to friends on phone, visiting friends or family, going to taoism or club meetings) 1 05/11/2025 Financial Resource Strain Answer Date R ecorded How hard is it for you to pa y for the very basics like food, housing, heating, medical care, and medications? 1 05/11 Stress Answer Date Recorded Do you feel these kinds of stress these days? 1 05/11/2025 Transportation Needs Answer Date Record ed In the past 12 months, has l ack of transportation kept you from medical appointments, meetings, work or from getting things needed for daily living? 1 05/11/2025 Housing Stability Answer Date Recorded What is your living situation today? 1 05/11/2025 Employment Answer Date Recorded Are you currently employed? 1 04/21 Comments Unknown Sex and Gender Information Value Date Recorded Sex Assigned at Not on file Legal Sex Female 5:52 AM PDT Gender Identity Female 05/11/2025 5:56 AM PDT Sexual Orientation Don't know 05/11/2025 5: 56 AM PDT Plan of Treatment Health Maintenance Due Date Last Done Comments Lipid Screening 1955 TSH Monitoring 1955 Hypertension Screening (#1) 1973 Medicare Annual Wellness Visit 1973 Imm-DTaP/Tdap/Td (1 - Tdap) 1974 Breast Cancer Screening (Mammogram) 1995 CT Colonography 2000 Colonoscopy 2000 Colorectal Cancer Screening 2000 FIT/gFOBT 2000 Fecal DNA 2000 Flexible Sigmoidoscopy 2000 Imm-Zoster, Recombinant (2 of 3) 08/11/2017 06/16/20 17 Alcohol and Drug Screen 09/20/2024 [id number] (1 - season) 2025 Imm-Influenza (#1) 2025 06/21/2024, 0 06/07/2023, 07/13/2022, Additional history exists Falls Prevention 05/11/2026 05/11/2025 Tobacco Screening 05/11/2026 05/11/2025 Diabetes Screening 12/20/2027 12/19/2024, 0 10/26/2023, 05/19/2022, Additional history exists Imm-Pneumococcal 50+ Completed 07/13/2022 Hepatitis C Screening Completed 10/15/2022 Bone Density Screening Completed 03/08/2025, 2022 Depression Annual Screen Completed 05/11/2025 Procedures Procedure Name Priority Date/Time Associated Diagnosis Comments LIMITED ORAL EVALUATION - PROBLEM FOCUSED Routine 05/11/2025 1:30 PM CDT Nonrestorable carious tooth INTRAORAL - PERIAPICAL FIRST RADIOGRAPHIC IMAGE Routine 05/11/2025 1:30 PM CDT Nonrestorable carious tooth 3 EXTRACTION ERUPTED TOOTH OR EXPOSED ROOT Routine 05/11/2025 1:30 PM CDT Nonrestorable carious tooth 4 ROOT CANAL - WISDOM (NO BILLABLE) Routine 05/11/2025 12:00 AM CDT 3 ROOT CANAL - WISDOM (NO BILLABLE) Routine 05/11/2025 12:00 AM CDT 6 RETAINER CROWN - PORCELAIN/CERAMIC Routine 05/11/2025 12:00 AM CDT 4 RETAINER CROWN - PORCELAIN/CERAMIC Routine 05/11/2025 12:00 AM CDT 5 PONTIC - PORCELAIN/CERAMIC Routine 05/11/2025 12:00 AM CDT 3 CROWN - PORCELAIN/CERAMIC Routine 05/11/2025 12:00 AM CDT 2 CROWN - PORCELAIN/CERAMIC Routine 05/11/2025 12:00 AM CDT from Last [address] [place] MEDICARE ADVANTAGE
--- OUTSIDE RECORDS SUMMARY | 2025-07-03 00:50 | XMS_ITS | Patient Health Record ---
Author Organization [facility] Address [address] [place] [address] Care Team Providers Care Equities Analyst Name Role Phone Diallo Loya [phone] Allergies Allergen (clinical drug ingredient) Drug/Non Drug Allergy documented on EMR Reaction Allergy Type Onset Date Status moxifloxacin Avelox Unknown Drug Allergy Acti ve azithromycin Zithromax Unknown Drug Allergy Acti ve Reason For Referral No Information Medications Medication SIG (Take, Route, Frequency, Duration) Notes Start Date End Date Status Montelukast Sodium 10 MG Oral; Duration: 90 Days Active Anastrozole 1 MG Oral; Duration: 90 Days Active Levothyroxine Sodium 25 MCG 1 tablet in the morning on an empty stomach Orally Once a day; Duration: 30 day(s) 02/18/2024 Active buPROPion HCl ER (SR) 200 MG 1 tablet in the morning Orally Once a day; Duration: 30 day(s) 02/18/2024 Active Escitalopram Oxalate 20 MG Oral; Duration: 90 Days Active Famotidine 20 MG Oral; Duration: 90 Days Active Problems Problem Type SNOMED Code ICD Code Onset Dates Problem Status W/U Status Risk Notes Problem Tendinitis of right rotator cuff (disorder) (219940917885606 04) Rotator cuff tendinitis, right (M75.81) Active confirmed Plan Of Treatment No Information Insurance Providers Payer Name Payer Address Payer Phone Subscriber Number Group Number Insured Name Patient Relationship to Insured Coverage Start Date Coverage End Date Medicare Part B [address] [place], [place] [id number] [phone] [id number] KATIE BAILEY Self - patient is the insured 0 [employer] [address] [place] [address] [id number] KATIE BAILEY Self - patient is the insured 1 Medical (General) History Medical History History ICD Code breast cancer depression Surgical History Surgery Date(Month/Year) hysterectomy bilat mastectomy
--- OUTSIDE RECORDS SUMMARY | 2025-07-03 00:50 | XMS_ITS | Clinical Summary ---
Author Organization [facility] Address [address] [place] [address] Care Team Providers Care Research Management Associate Name Role Phone Unavailable Primary Care Provider Unavailabl e Source Comments [facility],non-owned Affiliates and Associated Physician Practices is amultiple site organization consisting of ambulatory clinics and hospital sitesin [place], [place], [place] and [place]. This disclosure is being madepursuant to the Care Everywhere program and may not contain all information available regarding this patient. Last updated 18.[facility] Immunizations Immunization Administration Dates Next Due INFLUENZA VACCINE, HIGH-DOSE , QUADR. (FLUZONE HIGH-DOSE QUADRIVALENT; 65Y+), 0.7 ML (HD-IIV4) 06/28/2020 INFLUENZA VACCINE, QUADR. (F LUZONE; FLULAVAL; FLUARIX; AFLURIA QUADRIVALENT; 6MO+), 0.5 ML (IIV4) 07/04/2019 Social History Tobacco Use Types Packs/Day Years Used Date Smoking Tobacco: Never Assessed Comments Unknown Sex and Gender Information Value Date Recorded Sex Assigned at Not on file Legal Sex Female 5:28 AM CERTIFIED MEETING PROFESSIONAL Gender Identity Not on file Sexual Orientation Not on file Plan of Treatment Health Maintenance Due Date Last Done Comments BONE DENSITY TESTING 1955 COLOGUARD (AGES 45-75) - COL ON CA SCREENING 1955 COLON MONITORING 1955 COLONOSCOPY - COLON CA SCREENING 1955 CT COLONOGRAPHY - COLON CA SCREENING 1955 Colorectal Cancer Screening 1955 FIT - COLON CA SCREENING 1955 FLEX SIG - COLON CA SCREENING 1955 LIPID TESTING 1955 MAMMOGRAM 1955 HEPATITIS C SCREENING 05/24/1973 DTAP/TDAP/TD VACCINES (1 - Tdap) 1974 PNEUMOCOCCAL VACCINE 50+ (1 of 1 - PCV) 2005 ZOSTER VACCINE (1 of 2) 2005 DEPRESSION SCREENING 09/20/2024 COVID-19 VACCINE (1 - 4-2 5 season) 2025 INFLUENZA VACCINE (#1) 2025 0, 07/04/2019 Respiratory Syncytial Virus (RSV) Vaccine Pt: or over 60 yrs (1 - 1-dose 75+ series) 2030 HEPATITIS B VACCINE Aged Out No longe r eligible based on patient's age to complete this topic HIB VACCINE Aged Out No longer eligi ble based on patient's age to complete this topic HPV VACCINE Aged Out No longer eligi ble based on patient's age to complete this topic MENINGOCOCCAL (Group B) VACCINE SHARED DECISION-MAKING Aged Out No longer eligible based on patient's age to complete this topic MENINGOCOCCAL GROUPS A/C/Y/W VACCINE Aged Out No longer eligible b ased on patient's age to complete this topic Insurance MEDICARE ADV
--- OUTSIDE RECORDS SUMMARY | 2025-07-03 00:50 | XMS_ITS ---
Author Organization [facility] Address [address] [place] [address] Phone Care Team Providers Care Director Of Health Care Marketing Name Role Phone Liseth Zamora MD Primary Care Provider Shannon Flores RN Unavailable Unavailable Ludivina Damon MD Unavailable Lynn Carney RN Unavailable Unavaila Ruy Arora MD Unavailable [phone] Amina Allen APRN, CNP Unavailable [phone] Oncology Navigation Status:Enrolled (Active) Start date:08/30/2024 Enrollment date:08/30/2024 Overview Oncology Navigation is a program to identify any barriers that might prevent a patient from gettingtheir proper cancer treatment and provide interventions to help overcome those barriers. Case Team Name Relationship Phone Lynn Carney RN(Responsible Staff) Chelita fuller Nurse Navigator Continued Care and Services Coordination
--- OUTSIDE RECORDS SUMMARY | 2025-07-03 00:50 | XMS_ITS | Encounter Summary ---
Author Organization [facility] Address [address] [place] [address] Phone Care Team Providers Care Percussion Instrument Tuner Name Role Phone Naresh Stacy MD Primary Care Provider Suzette Smith MD Primary Care Provider Liseth Zamora MD Primary Care Provider Shannon Flores RN Unavailable Unavailable Ludivina Damon MD Unavailable Lynn Carney RN Unavailable UnavailRuy Coles MD Unavailable [phone] Amina Allen APRN, FAN BLADE ALIGNER Unavailable [phone] Encounter Details Date Type Department Care Team (Late st Contact Info) Description 04/17/2021 Transcribe Orders [facility] Admitting [address] [place] [address] Naresh Stacy MD [address] [address] Social History Tobacco Use Types Packs/Day Years Used Date Smoking Tobacco: Never Assessed Comments Unknown Sex and Gender Information Value Date Recorded Sex Assigned at Not on file Legal Sex Female 10:19 PM CDT Gender Identity Not on file Sexual Orientation Not on file documented as of this encounter Plan of Treatment Upcoming Encounters Date Type Department Care Team (Latest Contact Info) Description 07/12/2025 9:30 AM CDT Outpatient Clinic Visit [facility] [address] [place] [address] Luisa Thornton APRN, FAN BLADE ALIGNER [address] [place] [address] Discharge Disposition: Discharged to home or Selfcare 10/11/2025 9:30 AM SAMPLE GRADER Outpatient Clinic Visit [facility] [address] [place] [address] Luisa Thornton APRN, FAN BLADE ALIGNER [address] [place] [address] Discharge Disposition: Discharged to home or Selfcare 11/15/2025 9:30 AM SAMPLE GRADER Outpatient Clinic Visit [facility] [address] [place] [address] Luisa Thornton APRN, FAN BLADE ALIGNER [address] [place] [address] Discharge Disposition: Discharged to home or Selfcare 12/13/2025 9:30 AM CDT Outpatient Clinic Visit [facility] [address] [place] [address] Luisa Thornton APRN, FAN BLADE ALIGNER [address] [place] [address] 12/13/2025 11:00 AM CDT Office Visit [facility] Cardiovascular [place] - Cardiology [facility] [address] [place] [address] Ludivina Damon MD [address] [place] [address] 12/20/2025 9:40 AM CDT Office Visit [facility] - Primary Care [facility] [address] [place] [address] Liseth Zamora MD [address] [place] [address] documented as of this encounter Visit Diagnoses Not on filedocumented in this encounter Care Teams Percussion Instrument Tuner Relationship Specialty Start Date End Date Naresh Stacy MD [address] [address] PCP - General Family Medicine 05/01/21 12/23/21 Suzette Smith MD [address] [address] PCP - General Family Medicine 12/24/21 03/16/22 Liseth Zamora MD [address] [address] PCP - General Family Medicine 03/17/22 Shannon Flores RN [place] Oncology Nurse Navigator 12/11/22 Ludivina Damon MD [place] Consulting Physician Cardiovascular Disease - Cardiology 05/18/23 Lynn Carney, electronics assembler and tester Nurse Navigator 06/30/23 Ruy Lopez MD [address] [place] [address] Consulting Physician General Surgery 03/27/24 Amina Allen APRN, FAN BLADE ALIGNER [address] [place] [address] Nurse Practitioner Advanced Practice Nurse 12/05/24 documented as of this encounter
--- OUTSIDE RECORDS SUMMARY | 2025-07-03 00:50 | XMS_ITS ---
Author Name Interface, [address] lit Address [address] [place] [address] [place] [address] Allergies and Adverse Reactions Medication/Group Name Reaction Severity Date Avelox Unknown, Hives 05/08/2025 azithromycin Unknown, Hives 05/08/2025 Plan Date Type Value 11/08/2025 APPOINTMENT Follow Up - RADHA (30) 11/08/2025 APPOINTMENT Venipuncture (5) 08/08/[address]-CHEST (45) 05/08/2025 APPOINTMENT Follow Up - MD ( 15) 08/08/2025 LAB_ORDER CT chest w/ IV c ontrast 11/08/2025 LAB_ORDER Vitamin D, 25-Hy droxy panel 11/08/2025 LAB_ORDER CA 27-29 panel 11/08/2025 LAB_ORDER CBC w/ auto diff 11/08/2025 LAB_ORDER CMP Reason for Visit Follow Up - MD (15) Encounters Date Name 05/08/2025 Breast cancer, femal e 05/08/2025 Breast cancer, femal e 05/08/2025 Estrogen receptor po sitive status [ER+] 05/08/2025 High risk drug monit oring status (finding) 05/08/2025 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 0 mcg daily active 02/20 Meloxica m Oral orally daily 02/20/2025 VERIFY DOSE ON NEXT VISIT active 02/20 Ferrous Sulfate Oral orally daily active 04/08 Pyridoxi ne Oral 200.0 mg DAILY active 02/20 Bupropio n (XL) Oral 24 hr Tab orally 300.0 mg every morning active 04/08 Cetirizi ne Oral DAILY active 02/20 Dupiluma b Subcutan eous Pen Injector subcutan eously every 2 weeks 02/20/2025 VERIFY DOSE ON NEXT VISIT active 02/20 Multivit amins Oral Tablet orally 1.0 daily active 02/20 Cholecal ciferol Oral orally 125.0 daily active 02/20 escitalo pram Oral Tablet orally 20.0 mg daily active 02/20 Ascorbic Acid Oral orally 1000. 0 mg Daily active 02/18 anastroz ole 1 MG Oral Tablet orally 1.0 mg daily Take with or without food. started january 20232027 active Breast cancer, female 02/18 anastroz ole 1 MG Oral Tablet orally 1.0 mg daily Take with or without food. started january 20232027 active Breast cancer, female 02/18 anastroz ole 1 MG Oral Tablet orally 1.0 mg daily Take with or without food. started january 20232027 active Breast cancer, female 02/18 anastroz ole 1 MG Oral Tablet orally 1.0 mg daily Take with or without food. started january 20232027 active Breast cancer, female 02/18 anastroz ole 1 MG Oral Tablet orally 1.0 mg daily Take with or without food. started january 20232027 active Breast cancer, female 02/18 anastroz ole 1 MG Oral Tablet orally 1.0 mg daily Take with or without food. started january 20232027 active Breast cancer, female 02/18 anastroz ole 1 MG Oral Tablet orally 1.0 mg daily Take with or without food. started january 20232027 active Breast cancer, female 02/18 anastroz ole 1 MG Oral Tablet orally 1.0 mg daily Take with or without food. started january 20232026 active Breast cancer, female 02/18 anastroz ole 1 MG Oral Tablet orally 1.0 mg daily Take with or without food. started january 20232026 active Breast cancer, female 02/18 anastroz ole 1 MG Oral Tablet orally 1.0 mg daily Take with or without food. started january 20232026 active Breast cancer, female 02/18 anastroz ole 1 MG Oral Tablet orally 1.0 mg daily Take with or without food. started january 20232026 active Breast cancer, female 02/18 anastroz ole 1 MG Oral Tablet orally 1.0 mg daily Take with or without food. started january 20232026 active Breast cancer, female 02/18 anastroz ole 1 MG Oral Tablet orally 1.0 mg daily Take with or without food. started january 20232026 active Breast cancer, female 02/18 anastroz ole 1 MG Oral Tablet orally 1.0 mg daily Take with or without food. started january 20232026 active Breast cancer, female 02/18 anastroz ole 1 MG Oral Tablet orally 1.0 mg daily Take with or without food. started january 20232026 active Breast cancer, female 02/18 anastroz ole 1 MG Oral Tablet orally 1.0 mg daily Take with or without food. started january 20232026 active Breast cancer, female 02/18 anastroz ole 1 MG Oral Tablet orally 1.0 mg daily Take with or without food. started january 20232026 active Breast cancer, female 02/18 anastroz ole 1 MG Oral Tablet orally 1.0 mg daily Take with or without food. started january 20232026 active Breast cancer, female 02/18 anastroz ole 1 MG Oral Tablet orally 1.0 mg daily Take with or without food. started january 20232026 active Breast cancer, female 02/18 anastroz ole 1 MG Oral Tablet orally 1.0 mg daily Take with or without food. started january 20232026 active Breast cancer, female 02/18 anastroz ole 1 MG Oral Tablet orally 1.0 mg daily Take with or without food. started january 20232025 active Breast cancer, female 02/18 anastroz ole 1 MG Oral Tablet orally 1.0 mg daily Take with or without food. started january 20232025 active Breast cancer, female 02/18 anastroz ole 1 MG Oral Tablet orally 1.0 mg daily Take with or without food. started january 20232025 active Breast cancer, female 02/18 anastroz ole 1 MG Oral Tablet orally 1.0 mg daily Take with or without food. started january 20232025 active Breast cancer, female 02/18 anastroz ole 1 MG Oral Tablet orally 1.0 mg daily Take with or without food. started january 20232025 active Breast cancer, female 02/18 anastroz ole 1 MG Oral Tablet orally 1.0 mg daily Take with or without food. started january 20232025 active Breast cancer, female 02/18 anastroz ole 1 MG Oral Tablet orally 1.0 mg daily Take with or without food. started january 20232025 active Breast cancer, female 02/18 anastroz ole 1 MG Oral Tablet orally 1.0 mg daily Take with or without food. started january 20232025 active Breast cancer, female 02/18 anastroz ole 1 MG Oral Tablet orally 1.0 mg daily Take with or without food. started january 20232025 active Breast cancer, female 02/18 anastroz ole 1 MG Oral Tablet orally 1.0 mg daily Take with or without food. started january 20232025 active Breast cancer, female 02/18 anastroz ole 1 MG Oral Tablet orally 1.0 mg daily Take with or without food. started january 20232025 active Breast cancer, female 02/18 anastroz ole 1 MG Oral Tablet orally 1.0 mg daily Take with or without food. started january 20232025 active Breast cancer, female 02/18 anastroz ole 1 MG Oral Tablet orally 1.0 mg daily Take with or without food. started january 20232025 active Breast cancer, female 02/18 anastroz ole 1 MG Oral Tablet orally 1.0 mg daily Take with or without food. started january 20232024 active Breast cancer, female 02/18 anastroz ole 1 MG Oral Tablet orally 1.0 mg daily Take with or without food. started january 20232024 active Breast cancer, female 02/18 anastroz ole 1 MG Oral Tablet orally 1.0 mg daily Take with or without food. started january 20232024 active Breast cancer, female 02/18 anastroz ole 1 MG Oral Tablet orally 1.0 mg daily Take with or without food. started january 20232024 active Breast cancer, female 02/18 anastroz ole 1 MG Oral Tablet orally 1.0 mg daily Take with or without food. started january 20232024 active Breast cancer, female 02/18 anastroz ole 1 MG Oral Tablet orally 1.0 mg daily Take with or without food. 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 High risk drug monitoring status (finding) Active Multiple pulmonary nodules Active Estrogen receptor positive status [ER+] Active 0 05/08/2025 Estrogen receptor positive status [ER+] Active 0 05/08/2025 Vital Signs Date Type Value 05/08/2025 Intravascular Systolic 100 05/08/2025 Intravascular Diastolic 71 05/08/2025 Body Temperature 98.60 05/08/2025 Heart Beat 83.00 05/08/2025 Oxygen Saturation 97.00 05/08/2025 BSA 2.01 05/08/2025 Weight 200.50 05/08/2025 Height 66.50 05/08/2025 BMI 31.88 05/08/2025 Pain Scale 0.00 Notes Section * Progress Note <html><head></head><body><div class=clinicalNote spantype="clinicalNote version=1><div class=clinicalNoteHeader spantype=header><div><span class=clinicalNoteMacroHighlighted id=[id number] macroname=PracticeLetterhead spantype=macro title=#PracticeLetterhead><img src=data:image/jpeg;base64,/9j/4AAQSkZJRgABAQEAkAC QAAD/0VKgOGddCbEHMN1PMlKCTFoYFQQVWZBYANKRTETYNDZRBMX/2wBDAAIBAQIBAQICAgICAgICAwU DAwMDAwYEBAMFBwYHBwc LLyfBLZmUUVuCGUyUKy3RMrvWKGyWSmdFDh8XImqWCBt/2wBDAQICAgMDAwYDAwYMCAcIDAwMDAwMDAw MDAwMDAwMDAwMDAwMDAw MDAwMDAwMDAwMDAwMDAwMDAwMDAwMDAwMDAz/qKLMRGO0VNqQPVKBImOUEvEV/8QAHwAAAQUBAQEBAQE AAAAAAAAAAAECAwQFBgc ICQoL/6JHdYZQCcUWBiNEIfEXIDUTXXO5SCLNVKBTWTStVUNRW5BoAgWtNGXBabLSD6KwjMKX4cKjB3S yggkKFhcYGRolJicoKSo 5AJK5ALv2K4HPJsgRVEaSQTFBZ8uTSfBzGGHccIqrw0G5vum9kZmZqWBCu0sKdxUNgKSYh9kFdwYyfYE ku7ivrySawSR9e8r6xmY QlEIEn4sEmgKR3EYL90aM6uFh4+Mq4owh1xzl2xA93ci9+Pn6/8QAHwEAAwEBAQEBAQEBAQAAAAAAAAE CAwQFBgcICQoL/8QAtRE RSrGCMDFGHFjTLCSSFQE4ZRGENwKTEUQkIoYZQUopcHYeWbXLFUMQjzTTYLJhTgTDRrMZEnDvMLXe8Uh ZGEicIfzmPvX5Urn9VoY CBUPLOBeMY2GIZffYBKjiYWBkQ9lfqgL4kUC1zZb9maWRoPsUsJsOjkFOgJnBwZkwkkTcjnuwvTfarmL 5zfx6gSj8cdVJnbtQbXn H7lXB8kmD8Wxh3jRd9vkm3Fkn4bI38ok2+Pn6/5iNJCIUZOTKPjPOPpV66/4Ka/8ABc/Sf+Wje1Esf6R vvhvqniya+7ZKJYv2+qR 2qIJJJI/VHrmHQ4cVf50+ck9IwHF6Qn/zRHXv/Cgg/wDjdfO3/B0f/wApFdB/7Eq0/fFTs6s12kjzx7r 7e1Rp8FEeOa6BBiokyYw flrjTVgu6dQh3xLoM5FjH6j/4izvDZ/5ojr3/AIP4P/jdJ/xFn+HOP+Jackie/7f8T+D/wCN1+Huv0T31Ns Zw7zq6WL7iXFVVM27z6n KVjdsJJACLvaQ6FIqmHdPT4ZWuy5B4n+qS0e1LiS/B2n+BGqiV3hh7J1Ie1W2bqDlPaY73zEuWM91Bgb XCx2NCMJWpmmWpeB2E8P k13ln0EsGqv0t0m2zZ9ev2ii1f2opFMNWne0o4tMKGJ3wvwthc9DADm88k1bS4LlG1BOw2xzolS3eFpc Sp2vT9GwuBU3jkPVPX2F o5v6H7Kd0T5GOsgW535A+KLK+0+E0j9pi2wccsp9LVy4ArnmmLhENCDWt0w+AK4AolH1yqwikecpvp3d 9DgPq48J53NRwj8La6yw SzwS05I8/uprgKfLgePGNzOQrBRS/Tj8r37n/ALVHjHS/JEpdkQmMhrUspTCdqn62qkS137q9BJC5qiq 2PGnBDkaqGcVrkmRoUj8 thiT9wGTDgCA/GakA9J3cy8/Ugi5vr2WjI2NgJsyT7eo2gx1zKTIaqwP3bqfZa/EWd4b/AOiIa/n/ALG CD/58G2Xt3J4/8qjC7x6 9ayGapjwrN7tjfp18rVLF2+h6C5tGuZbrwPFZSmix27eI8E/k1rSygwC/s1+KrKRzmqjl1vZDv86ez6T J6Qo1pzmAxPyNI1mb3cl YDOu9zl5RE8vymZVnpC/nei1oz9G/LQMrcA7T7l2GkK/tBtM9g4SOLSagIk9AD4W692+vjHdG3sqIuxR NE3oBIRq3mI41nequWlJ 6uqM1xGmmtMnD2znly8t6RoBo/bFdR13iK/aB+Etpx62N90wTlURTvaQYfKbTH2M4cfEduov0JeOxNDZ RGoV6iqgC+T7N1l7a9xC w+Gcn9o/2DKtlmF30qaIix93DceuGHLUipJov2NSFvoQJ3S/bs1G3t/49l3F2YQ3W1cYFLkRJLwRyCbR DgfiPzq/9275f9k/grt4 Odkd7itEJCzTr+xZpljL/APEys+gJ5/8ArV4/sIuEXbeLfzTZ6/tpRlJX+4r58U7L80+P3hz4e/F/wj4 G1L+4i5ZdURfHJUmfOXH DsilHq1PWQfrBLV5NjOSmH1Iu0dXOqvO3V+R6H47m5Nfd5mg2OSHaPU8Es7JFsRIoUIW0kE8YcLKcv1L /kM4i7Jdek9/kbN8Bd0l ZL00xfzJm6F8TfmratwEzxgOoumacGd26WXWq4y1HIV5vC1qgNhhj2/9TqrKJMuH5RLqucDqFl1WJpLT ewETEOiDd7O8/pw5DdX1 JZHm4ZJqu/oi9LfFtwrn/HS6+Gn9s2i+I3RFE7dXdKsr0wf0lsrzPFGaJZarqJpLdYMFq+Abna22X5Y6 AZqP/AAkTaSdaANk/2Zr HXXAr34Qkk6D6m7ghoN+Yfj5+zTZ/tN/nhxAriD0Evgp7KQWYefRCC1I+N2WAChhAFc1DlWQ+WltKMJN M1qeUvmISGQ1JfdS77/a E+MarbuagBlPxH4tyRLdk1QOoRj1a23RexO3QAksZVdaYHf9A7F56RPEzYoCfQOVwhvMJosyJgT5htN6 1XDhTsIa368rs5w7mo/7 AOaIlp1M2iOCnF8a4QO0kHYX5tNeKsb6I1gY3rVuYNpHIIJnrs+GBUxJe468/AGvfh/4I+DGh/EF9YOr xXQEu2yADojleUq93Fhv RAvwaXHKXL6TaCxjlcua7gR2UjRW+MfhPU/0LkDkID2K0TmlJbTr5NmJq54NdxDiF/tq0g7DtghDtKZR 4SwyhVDFBwSdRuneB99W f8E/BK4LlbX/Cfir4/lCdjcsmNhnTvQrVPtI2WYaiL8cofHFJNRLxH19cPrvIGsNMZwk4t+kKWMnGCmu qh8I15E+9/ip+3WqVlp6 sq5z4ifw8kYI7cu6IVRkK54192NyXMVx7Xk0KVqSfr5a4CTjN6/xzutd7u1Vrvv1kOCdzc00a5U3wGth 2OoZdyMAVbBGVIyDwa+b P29/Pa5gv2dlI+G/jjS/Cfxg+MUsV33uGJkS29U4VnMeWHA9KMGPDFxTPRbiqfDBfN265I/kOH4TSu19 J1TZ1avpCA5p5a04M2Dx /HEez13AdDWavB8H+9sq2HJAAO261Nrw9INqQZ+IjkG0uXG9rRMJPQ3Iw9yPsCoLkHOIr3lFmHnSoJHK a6zZYKBQQ/Pj/AMHR/wD ykW0H/sSrT/0puK/C8eqlIgi31swTLE+gHU/hX6Q/8HR//TSiSc1QuXeG/wBKbmvk3/gn9+0/b/srftB X0k7ozl5F+MMp5S7r8oa XG37pIAdCuZ7IIpWYBnq8sMmIz/MT16rhKuGpp+BzlSsvACyqi10eH+Z+FPyUfGrpdSbTftRZGcf5h8Y pf/gnjeePvhn+xh4pDQ+ L/CNra+MbS/bH0nvvX99GtjtUQw604iHaJqx9IT4U6a2U+DnwQ8c/jsvO07ZyfbyzGidcSI/vt3UbB3y BAjoYiuvEtGFwL5QdCVx sUxmmc6k7g/fX9khzCZR8URJtqtTBdq2jDsQxzD3T03M4LEKS6baCPI1+g+laJp/kCEgIShByU03xNJA d0VEL1M1/aIhmTVNq0P9 /qF82qJzJrNk6cxqpbzrKOCsaniXVbaHSbbks/mx7JewxHVsu2cfHV3OZGvTZLZJ330dXnp6iJ1lr3Ji HmJVu9ARf8Qq+k20h6eD rN63DGrm9DrNhW+vm6UhZqn7N6Z/8OV6PrVLnEWJK48LTJ/PqlDDH5yX8zM0xj8HFgv7qX9/4b+INUAM Du9zTd6TeQ90/LuXcUca 4+z5GEqiD5+YIO6fyKqHm8H8MUoLjF91D6/M+XerF8VfI/cLyVa7Pz+GfEF3d+J2ZcQJu/oDpMHH8avG NbZpmVwTsdWg28QCaW9M o5IzZbsoA72E8j++4N0v2EeVjc4Wk5aPNDFE8Cvvo1AGZ/DRDNA6z9nhN9a6k4ZEXZju+C8kKR9IPOCC h3H2b9pDu8a5nB0Nl4Hl 2c7Twz/aWnatFp+jM2y5cszowJ9DEcPS4ljQ9RRQOAydt4i5JAhNYc2+u2wxNPDfHAMuNwuZQV++t10Z 6OdHyXXvQk3ySWxA4f4j 1Ipk5qotravcCtv9BaciwO0sHjHYckRqkoLenOaPnKvAl05Bn0tYKFeNOxvP8C3F0+LHwD+O/xH6lZ4r 07Q7/OCW3nKRc1FS3j4O z203cShph96XHgAxkCijLZwfUrAQ+GPEC+Kf+H9Nn0TiLrreN7B+G+d7Ae6Pe8fw1B1Vop9DLH/LTckE rSIUxBZqAA2WyeoXSgWi 2ulsrDmJzYmZ76kacoqCrviKHki4PtnOme/jSpUJPZz6mG0T5/wDWp+lpz1qfJlZ278STc7+g46W9V1X l2mpeC/In9q9HK3x26Pn R7TN77TWEfZSq0g4MQZtF5dtN3Jx5Av+nL4T8N/JcDwgg8m8/XHGg2rSGNEX6Q3/c5RKB2zLzwlcsh3g flA6EkR/gofoHjaPUtaX wPo+iJ7R3oeg1bYlGosMU4r690dy5viVH6yexUHRjY+7KlKjKa2h/BQYsno8V7GZWe8nSkUokzqQFi6n 3qtK5GwTBs01dxGsBWN/ BJgNlWNa/VZ+3yCafe9tlG+i9a3Gfu8kpL2wk5/jipDxx5Q1Cp5Tq29TwjvV+ILqJbebUFgRbyaMfdRp DbvIzfMyPRjtRHzEOK1F 3VQ4MMlK8uLNpmSsXlEHFVtvj7C53rrvif3qbqW+F/wBqL9o/4W/BWyii3ngUfCpvVe3MRrgWAcVpJ4Q IbnAK4JkTJltyWv8sDBa WybH7A/x85FxxR/swaL8T/EAi4m5q2J+HpiJ0rY+px/hldN2FWYAjFtD+RDHCqiPYoHKknJJNZVMNKEe ab7L8/iFNswzCDriu64/ zb0aD1uaF+s80HuCwsxhw6vzy5SpvLqOxMi0EhX6q6Q6m0yPdu18NvZv6i0BzC/vLqxWjo4q5HetjcvX EWc83sIyHOBqQmbhYuMi wW7TlLlWM8cIqD5Z8G/Aj4K+QIP6y64PL3F2diHFaoG65H92HhoVs5uEdv/NVigFu76tWV1AA7yCg4H/ Cn/FQ7hw9o2Y0MgMeErJ 13/XySxTPoQOQgoHOIBzEgZFrVUeKL16rkyw6XAhrD6f7j+RUa2orDglv+b4P3L0c+OWgn2i8mo+p6z4 G2El5lxpE1Fli7WrTW8U FYuEMKO3O1J69JacUgZ5r/eHoPhyc4bt4U+4sbmDLPNotAE93ka1I8yMCNZxjOsgLZ2AtYO5OYaN/smm xm/ay+PEtaUgiUE2K8Vt Pm8Nu7UyK7yGNACzm0sQf0jnZCmzUgJjYPZKcGxTTpfT/PMHb1x56L/sC+PwElWffjLzCr2iG/wCLLlj s6r7m0jv2CuTheMiOEZ6 qooGABRPDcsXOTbSt+Ua33sFs7jazacZTn/gwt1l6X/tG+DA9hRLBDdlog4DjWU0u6AmNEgVNZ9K+0N5 xbfgf9MqQBDBvYh4Kf9a XA/WvsJmD7JJfNnv5OVLPOLb2gKr4mRH3k5GVALgOlcin7mRdNAK+pP2Oeid0T5Z6vtq7IlqP0a9MTkN 1dssk2k4gc9qwuU119ns A7k2bWEKTjNsLtdaMRmEvYNdZqqrgCuibi8foI4awuiOaql1Xach9q6qHZqkiwyR0aoTNkvtk3pMCIvz zBa/TJKR9L86yfVh+nTa p4V+Il1+2BdEcrbyVSfyl4YAoTqKmM3K+zAMckfhVhxp3BDFqoN9H/lJBNBU2gCa0ur5eY9aLwiaMHa/ fKNl9dPpES9bEpGFA1pb kC5S9w0Vv5Zg2teoRBi7jj3ie5UZEGsJiz7/F2Pr+IVQDpgIp43GxUeu1C5BlPi6A4ZwP0rA6DeoK1HM ujYZX4zWEPqwjiwFVHsS szIZUf2uo8S/bY+Sqh2KjsQhKinw0f+Zv73O9MuJ48rcFyhijxcDaHSVpHocMA2ocjneFRY1UtzsOxst pTXks4L/whJyXe4OKZ77 qkemZK1tvnofDJyPgYgcTLZPvmme4JjsZbnnt6qs86u8EJ+Do3j/gotoP/YlWn/pTcV5L/wAEwI/hsYL x9z8Rky1q2/xIV8R+X/Z up9JO01j+8Av5ty9R4b6WnA06/wAHSDqv/WYFFRWpORky8phN/Sbiux/4JEf8G+G55peKCwsT0neX13m fdMOb0L0Qlvy3awB17Fj v3HJQwJTmm5THSel+c23WAa9UUx9Xwgky8NVbdcE40/U/NYK7aZObh8FpSdjdYjrev+Z7P/wTt+Bnjj4 wcoXAwfUzUcocygU3I4R JOCT9QIx6Eia6w0hCr1DZAM/Sbwl+mBdtrBnrcJuixKNZET8GZ/Sbbmy9IKwQh3P905mFHUYz5dn6zgr OdHspBrD6VUtSQ6kz2b/ Is5CHlT0q0qhNS02OmIhNqpzdkhyDyaj+XbQr/SL61P0JTSlFCF7vIh7MIKDM903Iu/Wq0W+XnV1eT/l 2b83c/gh77upPf3M3wHf y1rx3p53V/Wvao1p15vah7y1TjibhaYi4sYz+0j0h9ogyFdw9uz4UWkgwR9+Sn7cf/N2mrjcKsEjdI3w rPAXrKhO7vpF8i7Y0utP HHo0p5/uV+e3/AAUN/wCCk/xE/uOSsceSc8dxYiZut1qvYOOxyDmkH/YtKTsxH/JGrh04qk+FwMCvnsk urB5K6N+GuBwVKLxEIrt NMOrctGr6B6uxfE2tbL67C0Z+Z7v/AC/M9V+XL3rQhy/fi6XR53a/AgsS8ePLn/AnC67nVMHUNQ1eEA/ Aa/e3/g3FjVP+CT/gfaP +Yjqp+a3PapmuhuRhT1Vr/BuNx/wSg8D/APYR1T/0tlrr4/ipMxcgB3ffQ2jcuhcSfJpKLi1eTOXMd3L vr1R9F/tK/sb+Xb4sjz8 O6/cX2t+FvG/j3M0RJ4WcRqi03MOUASXApeSZXDZQE9Xmvocgptv1M+sC21f1ElGvWyz9okZHVQCauoD PHA7KQCXd8y0yRtUFQrs JNpqGJpw4iYg5esxgX1YwN/vadGDgAiaPshcW6tSBDB8PXiufkc+13cIAogPuF8IFkl8SHnWVo/hdmu/ +E5pn/rCsp4unAq1wf35 8r2/A/R6U5gE5u+/i5xqT68/Ye8P6z+kjhEnU0DWgJ1KZvOqxyB18h6wsk9eJL5vsuha6+hrjjZBm80E xW14N/Zuu/KGjz8xbnn+ Q6B4fCOD0Yq4FlP1zaED/zSxk344dhEo4iAlPXRBX2Eq78NRaDA7vt3pFgjJIc9Hhd/BfeQJ7KdHhTS3 Rqd5EYkZW/CO6X/8AGqf nh2712wo+Oj2O5Kwcii2+ZNZ/sceDdG/awk+Nvf3iatuwF18sWWaA+eGjXQIGQmuQ5xjwfAAbagOaDFo OQBjntE/Ylk+E/jDxBqf hh0gm73PxFnGhsczzDdZtQ+xqEMpM8avTOIpaboH1eXZ9EJlV25TNb8+CPxI/6LZr3/hO6Z/8apq/BP4 bRnDhd9t3aVRtrh8Dqfw 20no5+OFXvgG4tPU7k85F/vMf4l/mYN7GAal9P7P14dpaOYT6FzBWOAaxkrZ9erq/QHGTP5IqISNoeCZ jY7qBU9iYDWp28M/2R7j 27lc2g59R0LbUoRN2/zVLZmA9ujgnJ9xCUWeL7S0aRJYAb3MWGwJm1efQpXjCs1hUR5U+N+t+YoBK/wD VBwDrW6vfXSa+CHxJ/wC i2a9/4Tmmf/TkU9kxSmvF78/uTk3ujE04rv/Mf45/BAugXMvu8L/AbEbu7Js2125Yg/qx05NK8yOLbBn Q3S0oCTRUHUpQiuTtCev CLtGbJZ2AMbYfbG2HrYEut736ApRGWSN6zl3GlHu1GA6QAEndUHvpZvONnolV9RJqn8MhGdl9d/hSHxI H/NbNe/8ACc0z/wCNUn/ CkfiQB/vTaYxr6e5qn/mtvMAODcJu32xwQ16n2Sjlh4qHbi2N17qFqUU/iu9laKgMYschWvWN0Gurauj MK0BrZWw2AXicQY2QmMQ Y3xNLS2py4MU9sdIl9+0J4I+OikjCnlQ2m8P198wkR2QDf3cwvflagvzQTVffLTBaHCXN5IBN7bn+IQE aidknB1k5u/in9L+Q+h/ gqrrYr5S/gSD6Hmgp9mgyxPL9VbLVvXUf+60qj9qdpwl637GtB1dvcC0/PKelLla4YPjSu6YiFsdP0zn uI2YvC1HNyc/Zi0v0LGa Ssw9rUTGvEklGA3ukxuu09HGMNsVM/sSmvKXs269x44zeOYrHpvUdafHyIxFfq3dpDrNo8AOpgH4Xg5U uKDZxTuNdC8llV/gx8Ro Nm/76g5ieWoGb4s3irn1E46znguVme+YzClGaw3u0vsJnQiO+X6/xdBn8wGH37/Hp94ww5ZS8c+r379D p/Cvw/wDFHhjVPDKyeML dR4F3m2qk9m5KhEmkAOpwUUztFPHGsV74KotFRMGPw4ghA+Cf+q8c2LvPZbj+7jtlkQzx4+xIx5fZSyO 1VB2jMazqfpHhOyvgzNS X/iHWurHwQ+JDD/ktmu/+E5pn/wAaqI/Mv5oMfCU/RVQaAS3VS7n6rbA062qzXyDqP4vmg/oTtOm5pI9 6/aUywyBtyFoya0uy4gd GUyOPG3DBn0qYGLF+XtGcOxVi/bK8U0BPSUzf0dB6ZzAyyhqBHjx08DqS5PhlWrt9Tp2gpxnwBPneNzh AejCWOzHuAOvma0x2ayu lX2jb0SoQI/7RH/TOnUeir03NqeyceK2NjyC3MLMV19Znp4pCAe3ANHrC04F8sozzoNkXGLwGxynB8Rx 4HIK8jGFs4Ctme2dIkGP Cxh55uMiiG+WP/BYX/glT+0p/wUm/qIn7jDex3H2o3DvQ2Km+D2Mp5KwGTuVu146oSOcubwkkVNciWO0 IYWs6euTVIP/zJH7Hjie 9cr7RVysZ3Rt/A27Nf4zr/g1s/aGB/wCRg+Gf/gfc/wDxqg/9Uco0X2/QwfDP/wAD7n/4zRRX0/8Ar7m 380fuPA/1Lyz+V/eH/EL b+0Nn/kYPhn/4MLn/AOM1+uP/AASU/PV4QqjQ/sP+G/mp1dvcPldy0i1lG0rACsnV7NdKPmAXoYphgLN 945YZ4FscUH6DuCc1lqh O+isejlvD+NuIP1gVzud4drfe8Vqq+8UyeM/+Mo4F0Kd7+lvosZiuSsq+NFu6nWF+5ZQZQzISXVgNuQC XBVhfU8NcL0gM4z8jYGx MDkD6KvAHJiuNnvycaIAqQuVlZFxn8QD3GWRuox0266qedxUrktENiFlCubB0dNB/Z8+Emrlzm0JwAcX W9gJJ3YSrroSBH0ojnhp dgFxkssmD/iWVcpyaG5Bet5agQ2kjiTe/h0qGtcOJEMhWPT9a+XwCHqHr83FnzgrlORRu38ui+BMFjJ9 l6fF5UnN0E/Ilbb4OLlx 9V4ilFzZyho6n1KFyXWPTjL6mXSffCeSO4NXBMlr1Se++Pez3v20+fzA3ObGEOf2WLe00jqwkgZfpCn/ 3PgO4KqzVQP23XTdetFG 10qQkAQ2o23nvkKtUGcWqkx0cEN8T/H7tzYxtLBoQ9I93PIWwsJQv0blitWrT5uil/Xak7bNRWP+TAwK uWHws+OXozKmi3qOQ7ox v7Z9geHurSGeHQsJW2SNTl1vJwrOFY0Y9SJcaBj1jNyeuljIp+46Qf74FDJ6cVk98ioItEGwc3AgXXeq t9qmsmx8jDvW9yR9JCU5 875Zw3a/SH8ikBevIamaLZ8nsgLzQZ7S31K7BDHjdkW7aeWkHnTWNcdxMQMIyvn/hiBaZkIXP5sf5Vqz j+ww7c3A8L0wie5bRh8T wq34vMShAc4tkXqBrh7HVl+m36bgvnlNG0H/s5/EbwUduk+ZKQdO7O4DPSNdJ1TSSQKiNaH5BRTZhgyD ScAFFT/MyMsJtnnyrd8x /UCkPW7aXnjry+xp+H/ac9Nwamf6YjjIlqBP7C0rRqd7j2PE1pDtIXHG7NR5d1rTpzZuCjG+uK9gb6Gt YLDBxP711fa45cdQZpqx 7rtvyF9icJ0JmKLbMRF0vQuU9ZGj0KDuiFwdq2r+3f5C+nJtmYvxsO4jc+YK3Dvbeuh0dNStiPDrnoqS wJbCQPFgSgFksJpwi1aW W6+EFhJw3wLuzRCHw8DmMVW7oHE+2JY+vcpMQh9BTDl4YG8PTVtBTLgP4lBDKh/KuEiBDDDF6ytf4Qox 5438N+X8N30osNRa1nxE tm1kc3k93VzfXKGOLO6bA8HdWYFLYMhZsDpck9Bd/Q3GofSwnpa//2Q==></span></div><div& gt;
</div><div><table cellspacing=0 style=border-collapse:collapse; border:none> <tbody> <tr> <td style=paddinin 7px 0in 7px; width:156px valign=top><span style=font-size:11pt><span style=line-height:normal><span style=font-family:Calibri,sans-serif> </span></span></span><strong>Patient</strong>: <span class=cl inicalNoteMacroHighlighted id=[id number] macroname=PatientName& quot; spantype=macro title=#PatientName>Lavinia Valiente</span>
</td> <td style=paddinin 7px 0in 7px; width:156px valign=top&quot ;><strong>MRN: </strong><span class=clinicalNoteMacroHighlighted" id=[id number] macroname=PatientMRN spantype=macro" title=#PatientMRN>[id number]</span>
</td> <td style=paddinin 7px 0in 7px; width:156px valign=top><span style=font-size:11pt><span style=line- height:normal><span style=font-family:Calibri ,sans-serif></span></span></span><strong>: </strong><span class=clinicalNoteMacroHighlighted id=[id number] mac roname=PatientDateOfBirth spantype=macro title=#PatientDateOfBirth&quo t;>1955</span>
</td> <td style=paddinin 7px 0in 7px; width:156px valign=top><strong>AGE: </strong><span class=&q uot;clinicalNoteMacroHighlighted id=[id number] macroname=Patient Age spantype=macro title=#PatientAge>69</span></td> </tr> <tr> <td style=paddinin 7px 0in 7px; width:156px valign=top"><strong>Attending Physician: </strong><span class=clinicalNoteMacroHighlighted id=[id number] macroname=AttendingPhysician" parameters=ShowSpecialty:No spantype=macro title=#AttendingPhysicia n(ShowSpecialty:No)>Katty Yu</span>
</td> <td style=paddinin 7px 0in 7px; width:156px valign=top><span style=font-size:11pt><span style=line-height:normal><span style=font-family:Calibri,sans- serif></span></span></span><strong>Dictated By: &am p;nbsp; </strong><span class=clinicalNoteMacroHighlighted id =[id number] macroname=Author spantype=macro title=&q uot;#Author>Katty Yu MD</span>
</td> <td style=paddinin 7px 0in 7px; width:156px valign=top><span style=font-size:11pt"><span style=line-height:normal><span style=font-family:Calibri,sans- serif></span></span></span>
</td> <td style=paddinin 7px 0in 7px; width:156px valign=top><span style=font-size:11pt><span style=line- height:normal><span style=font-family:Calibr i,sans-serif></span></span></span><strong>Gender: </strong><span class=clinicalNoteMacroHighlighted id=[id number] macroname=PatientGender spantype=macro title=#PatientGender> female</span>
</td> </tr> </tbody></table><div style="text- align:center><span style=font-size:16px>
<img [id number]=[id number] class=clinicalNoteAudioRecordingImage createddate=05/08/2025 02:16 PM dictatedby=Katty Yu MD durationmillis=-1 qwmhmyda=[id number] id=[id number] sequencenumber=0" spantype=audiorecording src=[email or web address] title=Recording #0><strong>Progress Note</strong></span>
<span style=font-size:12px><span class=clinicalNoteMacroHighlighted id=[id number] macroname=EffectiveDate spantype=macro title=#EffectiveDate>05/08/2025</span></span>
</div>
</div></div><span class=clinicalNoteSectionShowSeparators clinicalNoteSectionVisible id=[id number] internalbreaksection=false lian ginalname=Hem/Onc Problem List: recognizeconcepts=true spantype=section suppressempty=false>Hem/Onc Problem List:</span>
Bilateral breast cancers.

<span class=clinicalNoteSectionShowSeparators clinicalNoteS ectionVisible id=[id number] internalbreaksection=false o riginalname=Staging: recognizeconcepts=true spantype=section sup pressempty=false>Staging:</span><ul> <li>Anatomic stage IIA/prognostic stage IA ([id number]) right breast. </li> <li>Anatomic stage IIA/prognostic stage IB ([id number]) left breast. </li></ul><span class=& quot;clinicalNoteSectionShowSeparators clinicalNoteSectionVisible id=[id number] internalbreaksection=false originalname=Chief Complaint recognizeconcepts=true spantype=section suppressempty=false>Chief Com plaint:</span>
Followup.

<span class= clinicalNoteSectionShowSeparators clinicalNoteSectionVisible id=[id number] internalbreaksection=false originalname=Assessment & Plan recognizeconcepts=true spantype=section suppressempty=false>Assessment & Plan:</span><ol> <li>Bilateral early stage breast cancers. She is on anastrozole, which she is tolerating well. No concerning findings on today's clinical chest wall exam. We will see her back in 6 months. Plan will be for 10-year duration endocrine therapy if she is able to tolerate it.
</li> <li>We do monitor her CA27.29 tumor marker; it remains normal. </li> <li>Mild renal insufficiency. Observing. </li> <li>Osteopenia per [facility] (03/08/2025). Bone density has gone down by 6% in hip and lower back. She has dysphagia and she believes a history of gastric ulcers. She also has dental concerns and thus I do not think she is a good candidate for bisphosphonate oir Prolia. We discussed the appropriate daily amounts of calcium and vitamin D as well as incorporation of light weightbearing exercises for good bone health. </li> <li>She hassome new subcentimeter pulmonary micronodules on chest imaging, suspected to likely be infectious/in flammatory in nature. She also has a tiny endobronchial opacity, possibly due to mucous plugging. We discussed repeating CT chest in 3 months to reassess for resolution. I have ordered that for her and will call her with the results. </li></ol><span class=clinicalNoteSectionShowSeparators clinicalNoteSectionVisible id=&quo t;[id number] internalbreaksection=false originalname=ECOG:&quo t; recognizeconcepts=true spantype=section suppressempty=false&g t;Performance Status:</span>
<span class=clinicalNoteMacroHighlighted id=[id number] macroname=ECOGStatus parameters=LookBackDays:0 spantype=macro title=#ECOGStatus(LookBackDays:0)>0 Normal activity. Fully active, able to carry on all pre-disease performance without restriction. (Date: 05/08/2025)</span>

<span class=clinicalNoteSectionShowSeparators clinicalNoteSectionVisible id=[id number] internalbreaksection=false" originalname=Pain Score: recognizeconcepts=true spantype=section" suppressempty=false>Pain Score:</span>
<span class=clinicalNoteMacroHighlighted id=[id number] macroname=PatientPainCarePlan parameters=LookBackDays:0,ValueIfNull:No Pain Reported spantype=macro" title=#PatientPainCarePlan(LookBackDays:0,ValueIfNull:No Pain Reported)>No Pain Reported</span>

<span class=clinicalNoteSectionShowSeparators clinicalNoteSectionVisible id=[id number] internalbreaksection=false" originalname=Depression Screening recognizeconcepts=true spantype=section suppressempty=false>Depression Screening:</span>
<span class=clinicalNoteMacroHighlighted id=[id number] macroname="DepressionStatus parameters=LookBackDays:5 spantype=macro title=&qu ot;#DepressionStatus(LookBackDays:5)>Was screened; Outcome positive: No; Screening Date: 05/08/2025; Screening Tool: PRIME BROWN-PHQ2; Total depression score: 0</span>

Depression Plan:

<span class=clinicalNoteSectionShowSeparatorsclinicalNoteSectionVisible id=[id number] internalbreaksection=false originalname=Molecular Testing: recognizeconcepts=true spantype=& quot;section suppressempty=false>Molecular Testing:</span>

<span class=clinicalNoteSectionShowSeparators clinicalNoteSectionVisible" id=[id number] internalbreaksection=false originalname=&quo t;Cancer/Hematological History: recognizeconcepts=true spantype=section&quot ; suppressempty=false>Cancer/Hematological History:</span>
<ul> <li>12/29/2022 - Anatomic stage IIA/prognostic stage IA ([id number]) grade 2 invasive ductal carcinoma of the right breast that is ER 87%, OK 71%, HER2 IHC 2+ with FISH pending, status post mastectomy. She had a 1.5 cm right breast mass. Three of 9 lymph nodes involved. No extracapsular extension seen. Oncotype DX recurrence score 21. Thus, chemotherapy was deferred. She did receive adjuvant radiation.</li> <li>12/29/2022 - An[place] stage IIA/prognostic stage IB ([id number]) grade 2 invasive ductal carcinoma of the left breast that is ER 97%, OK 90%, HER2 IHC 2+ with FISH negative, status post left mastectomy. She had a 6 mm focus of carcinoma in the left breast. One of four lymph node were involved. No extracapsular extension seen. Oncotype DX recurrence score 4. Thus, chemotherapywas deferred. She did receive adjuvant radiation.</li> <li>02/09/2023 - Initia jignesh on adjuvant endocrine therapy with anastrozole with plans for 10-year course.</li> <li>Abemaciclib recommended, deferred by patient. 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 Teaching performed. Awaiting copay assist to start drug.</li></ul><span class=clinicalNoteSectionShowSeparators clinicalNoteSectionVisible id=&q uot;[id number] internalbreaksection=false originalname=Medica l History: recognizeconcepts=true spantype=section suppressempty=&quot ;false>Pertinent Medical/Surgical Problems:</span>
<ul> <li>Asthma.</li> <li>Obstructive sleep apnea.</li> <li>Osteopenia.</li> <li>Diverticulosis.</li> <li>GERD.</li> <li>Hypothyroidism.</li> <li>Gastric ulcers.</li> <li>Anxiety.</li> <li>Depression.</li> <li>Pilonidal cyst.</li> <li>Seasonal allergies.</li> <li>Bilateral breastaugmentation.</li> <li>Hysterectomy.</li> <li>Removal of sebaceous cyst.</li></ul><span class=clinicalNoteSectionShowSeparators clinicalNoteSectionVisible" id=[id number] internalbreaksection=false originalname=& quot;HPI recognizeconcepts=true spantype=section suppressempty=f alse>HPI:</span>
She returns for a follow-up appointment. She recently had a sinus infection. She is tolerating anastrozole.
&l t;br><span class=clinicalNoteSectionShowSeparators clinicalNoteSectionVisible id="[id number] internalbreaksection=false originalname=Review of Systems recognizeconcepts=true spantype=section suppressempty="false>Review of Systems:</span>
A 12 point review of systems is obtained and other than the above is noncontributory.

<span class=clinicalNoteSectionShowSeparators clinicalNoteSectionVisible id=[id number] internalbreaksection=false originalname=Vital Signs: recognizeconcepts=true spantype=section suppressempty=false>Vital Signs:</span>
<span class=clinicalNoteMacroHighlighted id=[id number] macroname=PatientVitalSigns parameters=LookBackDays:0 spantype=macro t itle=#PatientVitalSigns(LookBackDays:0)>Blood pressure: 100/71, Pulse: 83, Temperature: 98.6 F, Respirations: , O2 sat: 97%, Pain Scale: 0, Height: 66.5 in, Weight: 200.5 lb, BSA: 2.01, BMI: 31.88 kg/m2</span>
<span class=clinicalNoteMacroHighlighted id="[id number] macroname=PatientGender spantype=macro tit le=#PatientGender>female</span>
<span class=clinicalNoteSecti onShowSeparators clinicalNoteSectionVisible id=[id number] internalbreaksection=false originalname=Physical Exam recognizeconcepts=true" spantype=section suppressempty=false>Physical Exam:</span>
GENERAL: Well-developed, well-nourished person who is resting comfortably and is in no acute distress.
HEENT: Normocephalic, atraumatic. & amp;nbsp;Anicteric sclerae.
NECK: &a mp;nbsp; No palpable thyroid enlargement or soft tissue ma sses.
RESPIRATORY: Chest is clear to auscultation. Respiratory effort is normal.
CARDIOVASCULAR: Heart is regular rate and rhythm without murmurs.
GASTROINTESTINAL: &am p;nbsp; Abdomen is soft, nondistended and nontender. Normoactive bowel sounds.
NEUROLOGICAL: Oriented to time, place, and person. Cranial nerves grossly intact.
PSYCHIATRIC: Appropriate mood and affect.
MUSCULOSKELETAL: Strength grossly intact.
EXTREMITIES: Warm to touch. No edema. <br&gt ;LYMPHATICS: &nbs p; &nbs p; No palpable cervical, supraclavicular, infraclavicular oraxillary nodes.
BREASTS: &nb sp; &nb sp; Status post bilateral mastectomies. No palpable chest wall nodularity or axillary adenopathy.

<span class=clinicalNote SectionShowSeparators clinicalNoteSectionVisible id=[id number] internalbreaksection=false originalname=Data Reviewed: recognizeconcepts=tr ue spantype=section suppressempty=false>Data Reviewed:</span>
Labs reviewed. CT chest (05/01/2025) with several new micronodules, predominantly in the right middle lobe, most likely infectious or inflammatory. New 2-3 mm endobronchial opacity in the posterior right lower lobe, possibly mucous plugging. DEXAscan (03/08/2025) showing osteopenia.

<span class=clinicalNoteSectionShowSeparators clinicalNoteSectionVisible id=[id number] internalb reaksection=false originalname=Labs: recognizeconcepts=true span type=section suppressempty=false>Labs:</span>
<span cla ss=clinicalNoteMacroHighlighted id=[id number] macroname=Re centLabResultsTable spantype=macro title=#RecentLabResultsTable><table border=1 style=width:100%> <tbody> <tr> <th align="left>Lab Results</th> <td>05/01/2025</td> <td>12/19/2024</td> <td>12/06/2024</td> <td>11/20/2024</td> <td>11/13/2024</td> <td>10/12/2024</td> </tr> <tr> <th align=left> CBC</th> <td>
</td> <td>
</td> <td>
</td> <td>
</td> <td>
</td> <td>
</td> </tr> <tr> <td> WBCx 10^3/uL</td> <td>4.36</td> <td>
</td> <td>
</td> <td>
</td> <td>
</td> <td>
</td> </tr> <tr> <td> RBC x 10^6/uL</td> <td>4.33</td> <td>
</td> <td>
</td> <td>
</td> <td>
</td> <td>
</td> </tr> <tr> <td> HGB g/dL</td> <td>12.9</td> <td>
</td> <td>
</td> <td>
</td> <td>
</td> <td>
</td> </tr> <tr> <td> HCT %</td> <td>38.9</td> <td>
</td> <td>
</td> <td>
</td><td>
</td> <td>
</td> </tr> <tr> <td>& amp;nbsp; MCV fL</td> <td>89.8</td> <td>
</td> <td>
</td> <td>
</td> <td>
</td> <td>
</td> </tr> <tr> <td> &nbsp ; MCH pg</td> <td>29.8</td> <td>
</td> <td>
</td> <td>
</td> <td>
</td> <td>
</td> </tr> <tr> <td> &nb sp;MCHC g/dL</td> <td>33.2</td> <td>
</td> <td>
</td> <td>
</td> <td>
</td> <td>
</td> </tr> <tr> <td> RDW-CV, %</td> <td>12.9</td> <td>
</td> <td>
</td> <td>
</td> <td>
</td> <td>
</td></tr> <tr> <td> RDW-SD fL</td> <td >42.2</td> <td>
</td> <td>
</td> <td>
</td> <td>
</td> <td>
</td> </tr> <tr> <td> PLT x 10^3/uL</td> <td>202&lt ;/td> <td>
</td> <td>
</td> <td>
</td> <td>
</td> <td>
</td> </tr> <tr> <td> MPV fL</td> <td>8.5 (L)</td> <t d>
</td> <td>
</td> <td>
</td> <td>
</td> <td>
</td> </tr> <tr> <td> Mayda %</td> <td>67.5</td> <td>
</td> <td>
</td> <td>
</td> <td>
</td> <td>
</td> </tr> <tr> <td> LY %</td> <td>19.7 (L)</td> <td>
</td> <td>
</td> <td>
</td> <td>
</td> <td>
</td> </tr> <tr> <td> MO %</td> <td>7.8</td> <td>
</td> <td>
</td> <td>
</td> <td>
</td> <td>
</td> </tr> <tr> <td> EO %</td> <td>4.1</td> <td>
</td> <td>
</td> <td>
</td> <td>
</td> <td>
</td> </tr> <tr> <td> IG %</td> <td>0.20</td><td>
</td> <td>
</td> <td>
</td> <td>
</td> <td>
</td> </tr> <tr> <td>&a mp;nbsp; Mayda # (ANC) x 10^3/uL</td> <td>2.94</td> <td>
</td> <td>
</td> <td>
</td> <td>
</td> <td>
</td> </tr> <tr> <td> BA %</td> <td>0.7</td> <td>
</td> <td>
</td> <td>
</td> <td>
</td> <td>
</td> </tr> <tr> <td> MO # x 10^3/uL</td> <td>0.34</td> <td>
</td> <td>
</td> <td>
</td> <td>
</td> <td>
</td> </tr> <tr> <td> EO # x 10^3/uL</td> <td>0.18</td> <td>
</td> <td>
</td> <td>
</td> <td>
</td> <td>
</td> </tr> <tr> <td> BA #x 10^3/uL</td> <td>0.03</td> <td>
</td> <td>
</td> <td>
</td> <td>
</td> <td>
</td> </tr> <tr> <td> IG # x 10^3/uL</td> <td>0.01</td> <td>
</td> <td>
</td> <td>
</td> <td>
</td> <td>
</td> </tr> <tr> <td> LY # x 10^3/uL</td> <td>0.86 (L)</td> <td>
</td> <td>
</td> <td>
</td> <td>
</td> <td>
</td> </tr> <tr> <th align=left> Coags</th> <td>
</td> <td>
</td> <td>
</td> <td>
</td> <td>
</td> <td>
</td> </tr><tr> <th align=left> Chemistries</th> <td>
</td> <td>
</td> <td>
</td> <td>
</td> <td>
</td> <td>
</td> </tr> <tr> <td> Glucose mg/dL</td> <td>92</td> <td>
</td> <td>
</td> <td>
</td> <td>
</td> <td>
</td> </tr> <tr> < td> BUN mg/dL</td> <td>27 (H)</td> <td>
</td> <td>
</td> <td>
</td> <td>
</td> <td>
</td> </tr> <tr> <td>&nb sp; Creatinine measurement, serum mg/dL</td> <td>1.1</td> <td>
</td> <td>
</td> <td>
</td> <td>
</td> <td>
</td> </tr> <tr> <td> Creatinine mg/dL</td> <td>1.02</td> <td>
</td> <td>
</td> <td>
</td> <td>
</td> <td>
</td> </tr> <tr> <td> Sodium mmol/L</td> <td>137</td> <td>
</td> <td>
</td> <td>
</td> <td>
</td> <td>
</td> </tr> <tr> <td> Potassium mmol/L</td> <td>4.0</td> <td>
</td> <td>
</td> <td>
</td> <td>
</td> <td>
</td> </tr> <tr> <td> Chloride mmol/L</td> <td>103</td> <td>
</td> <td>
</td> <td>
</td> <td>
</td><td>
</td> </tr> <tr> <td> CO2 mmol/L</td> <td>26</td> <td>
</td> <td>
</td> <td>
</td> <td>
</td> <td>
</td> </tr> <tr> <td> Anion gap, mmol/L</td> <td>12</td> <td>
</td> <td>
</td> <td>
</td> <td>
</td> <td>
</td> </tr> <tr> <td> Calcium mg/dL</td> <td>9.8</td> <td>
</td> <td>
</td> <td>
</td> <td>
</td> <td>
</td> </tr> <tr> <td> Albumin g/dL</td> <td>4.6</td> <td>
</td> <td>
</td> <td>4.5</td> <td>
</td> <td>4.2</td> </tr> <tr> <td&gt ; Total protein g/dL</td> <td>7.2</td> <td>
</td> <td>
</td> <td>7.6</td> <td>
</td> <td>7.7</td> </tr> <tr> <td> Bilirubin, total mg/dL</td> <td>0.5</td> <td>
</td> <td>
</td> <td>0.07</td> <td>
</td> <td>0.4</td> </tr> <tr> <td> Bilirubin, direct mg/dL</td> <td>
</td> <td>
</td> <td>
</td> <td>0.07</td> <td>
</td> <td& gt;0.10</td> </tr> <tr> <td> Alkaline phosphatase U/L</td> <td>83</td> <td>
</td> <td>
</td> <td>104</td> <td>
</td> <td>121</td> </tr> <tr> <td> AST/SGOT U/L</td> &l t;td>25</td> <td>
</td> <td>
</td> <td>30</td> <td>
</td> <td>36</td> </tr> <tr> <td> ALT/SGPT U/L</td> <td>33</td> <td>
</td> <td>
</td> <td>44</td> <td>
</td> <td>43</td> </tr> <tr> <td> eGFR, mL/min/1.73</td> <td>59 (L)</td> <td>
</td><td>
</td> <td>
</td> <td>
</td> <td>
</td> </tr> <tr> <td> Vitamin D, 25-hydroxy ng/mL</td> <td>44.3</td> <td>
</td> <td>
</td> <td>
</td> <td>
</td> <td>
</td> </tr> <tr> <th align=left> Tumor Markers</th> <td>
</td> <td>
</td> <td>
</td> <td>
</td> <td>
</td> <td>
</td> </tr> <tr> <td> CA 27-29 U/mL</td> <td>11.1</td> <td>
</td> <td>
</td> <td>
</td> <td>
</td> <td>
</td> </tr> <tr> <th align=left> Anemia Labs</th> <td>
</td> <td>
</td> <td>
</td> <td>
</td> <td>
</td> <td>&lt ;br> </td> </tr> <tr> <td> Vitamin B12 pg/mL</td> <td>
</td> <td>
</td> <td>See attached</td> <td>
</td> <td>
</td> <td>
</td> </tr> <tr> <th align=left> Immunology</th> <td>
</td> <td>
</td> <td>
</td> <td>
</td> <td>
</td> <td>
</td> </tr> <tr> <th align=left> Immunohematology</th> <td>
</td> <td>
</td> <td>
</td> <td>
</td> <td>
</td> <td>
</td> </tr> <tr> <th align=left> Hormones</th> <td>
</td> <td>
</td> <td>
</td> <td>
</td> <td>
</td> <td>
</td> </tr> <tr> <th align=left> Pathology/Cytology</th> <td>
</td> <td>
</td> <td>
</td> <td>
</td> <td>
</td> <td>
</td> </tr> <tr> <td> CBC report</td> <td>
</td> <td>
</td> <td>See attached</td> <td>
</td> <td>
</td> <td>
</td> </tr> <tr> <td> Pathology report</td> <td>
</td> <td>
</td> <td>
</td> <td>
</td> <td>See attached</td> <td>
& lt;/td> </tr> <tr> <th align=left> Genetics</th> <td>
</td> <td>
</td> <td>
</td> <td>
</td> <td>
</td> <td>
</td> </tr> <tr> <th align=left> Lab - Other</th> <td>
</td> <td>
</td> <td>
</td> <td>
</td> <td>
</td> <td>
</td> </tr> <tr> <td> Lab Report</td> <td>
</td> <td>
</td> <td>See attached; See attached</td> <td>
</td> <td>
</td> <td>
</td> </tr> <tr> <td> BMP</td> <td>
</td> <td>See attached</td> <td>
</td> <td>
</td> <td>
</td> <td>
</td> </tr> </tbody></table></span>

<span class=clinical NoteSectionShowSeparators clinicalNoteSectionVisible id=[id number] internalbreaksection=false originalname=Allergies: recognizeconcepts=true spantype=section suppressempty=false>Allergies:</span>
<span class=clinicalNoteMacroHighlighted id=[id number] macroname=Allergies parameters=ListType:Bulleted spantype=macro title=#Allergies(ListType:Bulleted)><ul> <li>Avelox</li> <li> azithromycin</li></ul></span>
<span class=clinicalNoteSectionShowSeparators clinicalNoteSectionVisible id=[id number] internalbreaks ection=false originalname=Medications: recognizeconcepts=true sp antype=section suppressempty=false>Medications:</span>
<span class=clinicalNoteMacroHighlighted id=[id number] macroname =PatientMedications parameters=ListType:Numbered,Verbosity:Medium spantype=& quot;macro title=#PatientMedications(ListType:Numbered,Verbosity:Medium)><ol> <li>Meloxicam Oral</li> <li>Zyrtec (Cetirizine Oral) 10 mg tablet</li> <li>Escitalopram Oral</li> <li>Multivitamins Oral Tablet</li> <li>Vitamin B-6 (Pyridoxine Oral)</li> <li>Cholecalciferol Oral 125 mcg (5,000 unit) tablet</li> <li>Dupixent (Dupilumab Subcutaneous Pen Injector)</li> <li& gt;Levothyroxine Oral</li> <li>Pepcid (Famotidine Oral)</li> <li>WellbutrinXL (Bupropion (XL) Oral 24 hr Tab)</li> <li>Ferrous Sulfate Oral 325 mg (65 mg iron) tablet</li> <li>Vitamin C (Ascorbic Acid Oral)</li> <li>Cyanocobalamin Oral</li></ol></span>
<span class=clinicalNoteSectionShowSeparators clinicalNoteSectionVisible id=[id number] internalbreaksection= false originalname=Family History: recognizeconcepts=true spanty pe=section suppressempty=false>Family History:</span>
Mother had breast cancer. Father had colon cancer.

<span class=clinicalNoteS ectionShowSeparators clinicalNoteSectionVisible id=[id number] internalbreaksection=false originalname=Social History: recognizeconcepts=true spantype=section suppressempty=false>Social History:</span>
Never smoker.
<span class=clinicalNoteSectionShowSeparators clinicalNoteSectionVisible id=[id number] internalbreaksection=false" originalname=. recognizeconcepts=true spantype=section suppre ssempty=false>.</span>
Discussion with Patient/Family/Other Providers: As noted above

<span class=clinicalNoteMacroHighlighted id=[id number] macroname=Author spantype=macro title =#Author>Katty Yu MD</span>

<strong>Send copy of note to</strong>: <span class=clinicalNoteMacroHighlighted id=[id number] macroname=NoteRecipients spantype=macro title=#Note Recipients>Liseth Zamora (Referring)</span>

& lt;br>

</div>

<div><span class=&qu ot;eSignSignature>Electronically signed by Katty Yu MD 05/22/2025 09:50 PM CDT</span></div></body></html>
--- OUTSIDE RECORDS SUMMARY | 2025-07-03 00:50 | XMS_ITS | CCD ---
Author Name Interface, S0Postpld lity Address [address] [facility] Address [address] [place], [place] [id number] Care Team Providers Care Grant Writer Name Role Phone Gigi BROWN, Katty Archuleta Unavailable Unavailable Allergies and Adverse Reactions Medication/Group Name Reaction Severity Date Avelox Unknown, Hives 05/08/2025 azithromycin Unknown, Hives 05/08/2025 Care Plan Date Type Value 11/08/2025 APPOINTMENT Follow Up - RADHA (30) 11/08/2025 APPOINTMENT Venipuncture (5) 08/08/[address]-CHEST (45) 05/08/2025 APPOINTMENT Follow Up - MD ( 15) 05/01/2025 APPOINTMENT Venipuncture (5) 05/01/[address]-CHEST (45) 04/17/2025 APPOINTMENT Follow Up - RADHA (30) 04/10/[address]-CHEST (30) 04/10/2025 APPOINTMENT Venipuncture (5) 05/01/2025 LAB_ORDER CMP 05/01/2025 LAB_ORDER CBC w/ auto diff 05/01/2025 LAB_ORDER CT chest w/ IV c ontrast 05/01/2025 LAB_ORDER CA 27-29 panel 05/01/2025 LAB_ORDER Vitamin D, 25-Hy droxy panel 08/08/2025 LAB_ORDER CT chest w/ IV c ontrast 11/08/2025 LAB_ORDER Vitamin D, 25-Hy droxy panel 11/08/2025 LAB_ORDER CA 27-29 panel 11/08/2025 LAB_ORDER CBC w/ auto diff 11/08/2025 LAB_ORDER CMP Reason for Visit Follow Up - MD (15) Encounters Date Name 11/08/2025 Multiple pulmonary n odules 11/08/2025 senior care (current) use of aromatase inhibitors 11/08/2025 Breast cancer, femal e 11/08/2025 High risk drug monit oring status (finding) 11/08/2025 senior care (current) use of aromatase inhibitors 11/08/2025 Breast cancer, femal e 11/08/2025 Multiple pulmonary n odules 11/08/2025 High risk drug monit oring status (finding) 11/08/2025 Breast cancer, femal e 11/08/2025 Breast cancer, femal e 08/08/2025 Breast cancer, femal e 08/08/2025 Breast cancer, femal e 08/08/2025 Multiple pulmonary n odules 11/08/2025 Venipuncture (5) 11/08/2025 Follow Up - RADHA (30) 08/08/2025 CT-CHEST (45) Functional Status Date Name/Question Score/Answer 05/08/2025 ECOG performance status - grade 0 0 Diagnostic Results Date Type Test Units Lower Limit Upper Limit Result Flag Comments Status Ordered By Specimen Source Lab Address 05/01 CA 27-29 panel CA 27-29 U/mL 0.0 37.7 11.1 This test is manufactu red by [employer] and is performed using a two-step immunoenz ymometric assay. Due to differenc es in reagent specifici ty and assay methods, it is not advised to use different methods interchan geably to monitor patient response. FINAL Katty Gigi [facility] In house lab, [address]\C\\X[address] A\ [place] [id number] 0 12/06 Vitam in B12 See hydro sprayer operator d 11/13 Colon oscop y See hydro sprayer operator d 11/20 Bilir ubin, direc t mg/dL 0.07 Blood 11/13 Tabitha dawkins copy (proc edure ) See hydro sprayer operator d 12/06 CBC repor t See hydro sprayer operator d 11/13 Patho logy repor t See hydro sprayer operator d 05/01 Creat inine measu remen t, serum mg/dL 1.1 ISTAT Blood 08/31 CMP Creat inine clear ance, estim ated, CG mL/min 75.97 Blood 08/31 CBC w/ auto diff RDW % 12.2 Blood 12/13 Elect rockrish diogr aphic proce dure (proc edure ) See hydro sprayer operator d 12/19 BMP See hydro sprayer operator d 05/01 Vitam in D, 25-Hy droxy panel Vitam in D, 25-hy droxy ng/mL 30.0 100.0 44.3 Vitamin D Deficienc y-<20 ng/mLVita min D insuffici ency-<30 ng/mLVita min D Toxicity- >100 ng/mLVita min D Sufficien t-30 to 100 ng/mL FINAL Katty Yu [facility] In house lab, [address] A\ [place] [id number] 0 05/01 CT CHEST W CONTR AST Reason For Exam: Routine Follow Up - No current complai nts, breast cancer, femaleA ddition al Informa tion:EX AMINATI ON: CT CHEST WITH CONTRAS TCOMPAR SUJATA: CT chest [id number] NIQUE: Axial CT imaging of the chest was perform ed after intrave nous adminis tration of 70 ml Omnipaq ue 300. 3D axial slab MIP reconst ruction s were also submitt ed for review. Sagitta l and coronal reforma tted images were created from the axial data. Radiati on dose reducti on techniq ues utilize d. DLP calcula jignesh at 5.9 mGy-cm. FINDING S:The heart is normal in size. No signifi cant vascula r abnorma lity.No pulmona ry consoli dation or pleural effusio ns. Similar scarrin g in the lung apices. Several new microno dules in the right middle lobe with subtle associa jignesh groundg lass density (se 3, im 125, 136-139 ). Also a new 2-3 mm endobro nchial opacity in the posteri or right lower lobe, possibl y mucus pluggin g (im 136).Si milar size of a 7-8 mm subsoli d nodule in the lateral right lower lobe associa jignesh with a few mildly dilated airways (se 3, im 172). Similar appeara nce of bandlik e opaciti es and associa jignesh microno dularit y in the posteri or right lower lobe (im 147-156 ).Calci fied right hilar nodes.B ilatera l mastect omies. Mild scolios is. No suspici ous osseous lesions identif ied.Lar ge hiatal hernia. Several small splenic calcifi cations . Partial visuali zation of a renal cyst on the right.I MPRESSI ON:1. Several new microno dules, predomi nantly in the right middle lobe, most likely infecti ous/inf lammato ry. Suggest attenti on on follow- up.Case finaliz ed at 05/01/25 11:30 Jessenia Potter MDThis report has been electro nically signed and verifie d by the [facility] whose name is printed above. FINAL [facility] 05/01 CMP ALT/S GPT IU/L 7.0 52.0 33 FINAL [facility], [address] [place] [address] [place] [id number] 0 05/01 CMP Gluco se mg/dL 70.0 105.0 92 FINAL [facility], [address] [facility] [place] [id number] 0 05/01 CMP Anion gap, mmol/ L mmol/L 6.0 20.0 12 FINAL [facility], [address] [place] [id number] 0 05/01 CMP Total prote in g/dL 6.4 8.9 7.2 FINAL [facility], [address] [facility] [place] [id number] 0 05/01 CMP AST/S GOT IU/L 13.0 39.0 25 FINAL [facility], [address] [place] [address] [place] [id number] 0 05/01 CMP Bilir ubin, total mg/dL 0.3 1.0 0.5 FINAL [facility], [address] [facility] [place] [id number] 0 05/01 CMP Sodiu m mEq/L 136.0 145.0 137 FINAL [facility], [address] [facility] [place] [id number] 0 05/01 CMP Alkal ine phosp hatas e U/L 34.0 104.0 83 FINAL Katty [facility], [address] [place] [id number] 0 05/01 CMP Calci um mg/dL 8.6 10.3 9.8 FINAL Katty [facility], [address] [facility] [place] [id number] 0 05/01 CMP CO2 mEq/L 21.0 31.0 26 FINAL Katty [facility], [address] [facility] [place] [id number] 0 05/01 CMP eGFR, mL/mi n/1.7 3 59.0% Low FINAL Katty [facility], [address] [facility] [place] [id number] 0 05/01 CMP Chlor aris mEq/L 98.0 107.0 103 FINAL Katty [facility], [address] [facility] [place] [id number] 0 05/01 CMP BUN mg/dL 7.0 25.0 27 High FINAL Katty [facility], [address] [facility] [place] [id number] 0 05/01 CMP Creat inine mg/dL 0.6 1.2 1.02 FINAL [facility], [address] [facility] [place] [id number] 0 05/01 CMP Album in g/dL 3.5 5.7 4.6 FINAL [facility], [address] [place] [address] [place] [id number] 0 05/01 CMP Potas sium mEq/L 3.5 5.1 4.0 FINAL [facility], [address] [facility] [place] [id number] 0 08/03 CT scan resul t See attache maria (Review comment from converted document) 12/06 Lab Repor t See attache maria 05/01 CBC w/ auto diff Mayda # (ANC) X1000/ uL 1.27 5.67 2.94 FINAL [facility], [address] [place] [address] [place] [id number] 0 05/01 CBC w/ auto diff MCV fl 80.0 99.0 89.8 FINAL [facility], [address] [facility] [place] [id number] 0 05/01 CBC w/ auto diff IG % 0.0 0.5 0.2% FINAL [facility], [address] [facility] [place] [id number] 0 05/01 CBC w/ auto diff MO # X1000/ uL 0.17 0.8 0.34 FINAL [facility], [address] [facility] [place] [id number] 0 05/01 CBC w/ auto diff MO % % 3.7 9.6 7.8 FINAL [facility], [address] [facility] [place] [id number] 0 05/01 CBC w/ auto diff IG # 0.0 0.05 0.01% FINAL [facility], [address] [facility] [place] [id number] 0 05/01 CBC w/ auto diff EO # X1000/ uL 0.0 0.43 0.18 FINAL [facility], [address] [place] [id number] 0 05/01 CBC w/ auto diff EO % % 0.4 6.5 4.1 FINAL [facility], [address] [place] [address] [place] [id number] 0 05/01 CBC w/ auto diff RBC [id number] 00/uL 4.2 5.4 4.33 FINAL [facility], [address] [place] [id number] 0 05/01 CBC w/ auto diff MPV fl 8.6 12.2 8.5 Low FINAL [facility], [address] [place] [address] [place] [id number] 0 05/01 CBC w/ auto diff BA % % 0.0 1.8 0.7 FINAL [facility], [address] [place] [address] [place] [id number] 0 05/01 CBC w/ auto diff BA # X1000/ uL 0.0 0.3 0.03 FINAL [facility], [address] [place] [address] [place] [id number] 0 05/01 CBC w/ auto diff HGB g/dL 11.5 16.0 12.9 FINAL [facility], [address] [place] [address] [place] [id number] 0 05/01 CBC w/ auto diff MCHC g/dL 31.0 36.0 33.2 FINAL [facility], [address] [place] [address] [place] [id number] 0 05/01 CBC w/ auto diff HCT % 37.0 47.0 38.9 FINAL [facility], [address] [place] [address] [place] [id number] 0 05/01 CBC w/ auto diff WBC X1000/ uL 4.26 9.66 4.36 FINAL [facility], [address] [place] [address] [place] [id number] 0 05/01 CBC w/ auto diff PLT X1000/ uL 133.0 382.0 202 FINAL [facility], [address] [place] [address] [place] [id number] 0 05/01 CBC w/ auto diff RDW-S D fl 37.0 54.0 42.2 FINAL [facility], [address] [place] [address] [place] [id number] 0 05/01 CBC w/ auto diff RDW-C V, % % 12.1 14.6 12.9 FINAL [facility], [address] [place] [address] [place] [id number] 0 05/01 CBC w/ auto diff LY % % 21.1 53.8 19.7 Low FINAL [facility], [address] [place] [address] [place] [id number] 0 05/01 CBC w/ auto diff MCH pg 26.0 30.0 29.8 FINAL [facility], [address] [place] [address] [place] [id number] 0 05/01 CBC w/ auto diff LY # X1000/ uL 1.12 3.06 0.86 Low FINAL [facility], [address] [place] [address] [place] [id number] 0 05/01 CBC w/ auto diff Mayda % % 40.9 73.1 67.5 FINAL Katty [facility] [place] , [address] [place] [facility] [id number] 0 03/08 DEXA scan resul ts See attache maria Medications Administered Date Name Route Dose Frequency Instructions Start Date End Date Status 05/01/2025 iohexol intravenously 70.0 mL once 05/01/202504/20 inactive Medications Date Name Route Dose Frequency Instructions Start Date End Date Status Fill Status Indication 02/20 Ascorbi c Acid Oral orally 1000. 0 mg Daily active 02/20 escital opram Oral Tablet orally 20.0 mg daily active 02/20 Bupropi on (XL) Oral 24 hr Tab orally 300.0 mg every morning active 02/20 Ferrous Sulfate Oral orally daily active 02/20 Pyridox ine Oral orally 200.0 mg Daily stopped 02/20 Levothy roxine Oral orally 100.0 mcg daily active 02/20 Multivi tamins Oral Tablet orally 1.0 daily active 04/08 Cetiriz ine Oral DAILY active 02/20 Choleca lcifero l Oral orally 125.0 daily active 02/20 Cyanoco balamin Oral orally 2000. 0 mcg daily active 02/20 Famotid ine Oral orally 20.0 mg 2 times per day active 02/20 Meloxic am Oral orally daily 02/20/2025 VERIFY DOSE ON NEXT VISIT active 04/08 Pyridox ine Oral 200.0 mg DAILY active 02/20 Dupilum ab Subcuta neous Pen Injecto r subcutan eously every 2 weeks 02/20/2025 VERIFY DOSE ON NEXT VISIT active 02/20 Cetiriz ine Oral orally 10.0 mg daily stopped 02/18 anastro zole 1 MG Oral Tablet orally 1.0 mg daily Take with or without food. started january 20232027 active Breast cancer, female 02/18 anastro zole 1 MG Oral Tablet orally 1.0 mg daily Take with or without food. started january 20232027 active Breast cancer, female 02/18 anastro zole 1 MG Oral Tablet orally 1.0 mg daily Take with or without food. started january 20232027 active Breast cancer, female 02/18 anastro zole 1 MG Oral Tablet orally 1.0 mg daily Take with or without food. started january 20232027 active Breast cancer, female 02/18 anastro zole 1 MG Oral Tablet orally 1.0 mg daily Take with or without food. started january 20232027 active Breast cancer, female 02/18 anastro zole 1 MG Oral Tablet orally 1.0 mg daily Take with or without food. started january 20232027 active Breast cancer, female 02/18 anastro zole 1 MG Oral Tablet orally 1.0 mg daily Take with or without food. started january 20232027 active Breast cancer, female 02/18 anastro zole 1 MG Oral Tablet orally 1.0 mg daily Take with or without food. started january 20232026 active Breast cancer, female 02/18 anastro zole 1 MG Oral Tablet orally 1.0 mg daily Take with or without food. started january 20232026 active Breast cancer, female 02/18 anastro zole 1 MG Oral Tablet orally 1.0 mg daily Take with or without food. started january 20232026 active Breast cancer, female 02/18 anastro zole 1 MG Oral Tablet orally 1.0 mg daily Take with or without food. started january 20232026 active Breast cancer, female 02/18 anastro zole 1 MG Oral Tablet orally 1.0 mg daily Take with or without food. started january 20232026 active Breast cancer, female 02/18 anastro zole 1 MG Oral Tablet orally 1.0 mg daily Take with or without food. started january 20232026 active Breast cancer, female 02/18 anastro zole 1 MG Oral Tablet orally 1.0 mg daily Take with or without food. started january 20232026 active Breast cancer, female 02/18 anastro zole 1 MG Oral Tablet orally 1.0 mg daily Take with or without food. started january 20232026 active Breast cancer, female 02/18 anastro zole 1 MG Oral Tablet orally 1.0 mg daily Take with or without food. started january 20232026 active Breast cancer, female 02/18 anastro zole 1 MG Oral Tablet orally 1.0 mg daily Take with or without food. started january 20232026 active Breast cancer, female 02/18 anastro zole 1 MG Oral Tablet orally 1.0 mg daily Take with or without food. started january 20232026 active Breast cancer, female 02/18 anastro zole 1 MG Oral Tablet orally 1.0 mg daily Take with or without food. started january 20232026 active Breast cancer, female 02/18 anastro zole 1 MG Oral Tablet orally 1.0 mg daily Take with or without food. started january 20232026 active Breast cancer, female 02/18 anastro zole 1 MG Oral Tablet orally 1.0 mg daily Take with or without food. started january 20232025 active Breast cancer, female 02/18 anastro zole 1 MG Oral Tablet orally 1.0 mg daily Take with or without food. started january 20232025 active Breast cancer, female 02/18 anastro zole 1 MG Oral Tablet orally 1.0 mg daily Take with or without food. started january 20232025 active Breast cancer, female 02/18 anastro zole 1 MG Oral Tablet orally 1.0 mg daily Take with or without food. started january 20232025 active Breast cancer, female 02/18 anastro zole 1 MG Oral Tablet orally 1.0 mg daily Take with or without food. started january 20232025 active Breast cancer, female 02/18 anastro zole 1 MG Oral Tablet orally 1.0 mg daily Take with or without food. started january 20232025 active Breast cancer, female 02/18 anastro zole 1 MG Oral Tablet orally 1.0 mg daily Take with or without food. started january 20232025 active Breast cancer, female 02/18 anastro zole 1 MG Oral Tablet orally 1.0 mg daily Take with or without food. started january 20232025 active Breast cancer, female 02/18 anastro zole 1 MG Oral Tablet orally 1.0 mg daily Take with or without food. started january 20232025 active Breast cancer, female 02/18 anastro zole 1 MG Oral Tablet orally 1.0 mg daily Take with or without food. started january 20232025 active Breast cancer, female 02/18 anastro zole 1 MG Oral Tablet orally 1.0 mg daily Take with or without food. started january 20232025 active Breast cancer, female 02/18 anastro zole 1 MG Oral Tablet orally 1.0 mg daily Take with or without food. started january 20232025 active Breast cancer, female 02/18 anastro zole 1 MG Oral Tablet orally 1.0 mg daily Take with or without food. started january 20232025 active Breast cancer, female 02/18 anastro zole 1 MG Oral Tablet orally 1.0 mg daily Take with or without food. started january 20232024 active Breast cancer, female 02/18 anastro zole 1 MG Oral Tablet orally 1.0 mg daily Take with or without food. started january 20232024 active Breast cancer, female 02/18 anastro zole 1 MG Oral Tablet orally 1.0 mg daily Take with or without food. started january 20232024 active Breast cancer, female 02/18 anastro zole 1 MG Oral Tablet orally 1.0 mg daily Take with or without food. started january 20232024 active Breast cancer, female 02/18 anastro zole 1 MG Oral Tablet orally 1.0 mg daily Take with or without food. started january 20232024 active Breast cancer, female 02/18 anastro zole 1 MG Oral Tablet orally 1.0 mg daily Take with or without food. 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 High risk drug monitoring status (finding) Active Multiple pulmonary nodules Active Estrogen receptor positive status [ER+] Active 0 05/08/2025 Estrogen receptor positive status [ER+] Active 0 05/08/2025 Procedures Date Category Name Instructions Status 05/01/2025 Physician Order Creatinine measu rement (procedure) Administered 05/01/2025 Physician Order Computed tomogra phy of chest (procedure) Administered 05/01/[address] chest w/ IV contrast February 13, 2025 11:30:02 AM Kenyetta Reyes: CT CHEST NO PA REQ @ [id number] [id number] Ordered 08/07/2025 Physician Order Nurse Follow-Up CT Chest in 3m; call pt with results Ordered 08/08/[address] chest w/ IV contrast reassess pulm nodules in 3m Ordered 11/08/2025 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 Social History Date Name Value 05/08/2025 Sex Female Visits Date Type Value 11/08/2025 Venipuncture (5) 11/08/2025 Follow Up - RADHA (30) 08/08/2025 CT-CHEST (45) Vital Signs Date Type Value 08/31/2024 BSA 2.04 08/31/2024 BMI 32.89 08/31/2024 Height 66.50 08/31/2024 Weight 206.90 08/31/2024 Intravascular Systolic 130 08/31/2024 Intravascular Diastolic 79 08/31/2024 Oxygen Saturation 97.00 08/31/2024 Heart Beat 82.00 08/31/2024 Body Temperature 98.20 05/08/2025 BMI 31.88 05/08/2025 Height 66.50 05/08/2025 Weight 200.50 05/08/2025 Pain Scale 0.00 05/08/2025 Oxygen Saturation 97.00 05/08/2025 Heart Beat 83.00 05/08/2025 Body Temperature 98.60 05/08/2025 BSA 2.01 05/08/2025 Intravascular Systolic 100 05/08/2025 Intravascular Diastolic 71 Notes Section * Progress Note <html><head></head><body><div class=clinicalNote spantype="clinicalNote version=1><div class=clinicalNoteHeader spantype=header><div><span class=clinicalNoteMacroHighlighted id=[id number] macroname=PracticeLetterhead spantype=macro title=#PracticeLetterhead><img src=data:image/jpeg;base64,/9j/4AAQSkZJRgABAQEAkAC QAAD/5LUzDPrhGsJXEX9OUzHUSBvAPNBMZMJOSGMKQVCCABIFSTV/2wBDAAIBAQIBAQICAgICAgICAwU DAwMDAwYEBAMFBwYHBwc PSbrFOEyTKIcHYBtOAi8BEbxRXUfDAjhZEg4EWzeRGKr/2wBDAQICAgMDAwYDAwYMCAcIDAwMDAwMDAw MDAwMDAwMDAwMDAwMDAw MDAwMDAwMDAwMDAwMDAwMDAwMDAwMDAwMDAz/kOBHTZT0IBpHVKMENpLZZqTN/8QAHwAAAQUBAQEBAQE AAAAAAAAAAAECAwQFBgc ICQoL/1RXsKPVHuXOUpWZOtPDFQCPIEO2PIBPRXKKHJXjXFZNT1YtVsUjHZVQsoPKB7WslTEZ4mBoA1X yggkKFhcYGRolJicoKSo 5IWK9CNw8Q3TZPewEEFmOZEAAE1kYSvJoTDOvaIlmz8I6owt9lYdPnARCs1yXteDZpREPf9jGevXsyZO lm4znllPcvDK2w7j1iyC BlUSAe4hFraDT8FXC07kB4zSd7+Oh1tje0utf1mO15po8+Pn6/8QAHwEAAwEBAQEBAQEBAQAAAAAAAAE CAwQFBgcICQoL/8QAtRE VRhQXCKTPDYmYRYRNVON5RTTGIlTETABgUfGQLXgtcSPsYjNRYOVAjqJKVMMpLsOEEgECXsTmOLVs6Lo TMStaRbhwBeY7Vdb0QaG FYOELVAjWL0RXIojRHJyqGVUaW4szjxA9yKK0xJq1rwXEeJpKrZhYyhYFmRwAmIpfydUxbyhxsPilqwB 9stx8aRb4uoICjrsSzJj D5pEM5pdK1Tcu8bOu6own0Auo9tM67gn6+Pn6/2rCEXTGSWSILlKNQtR08/4Ka/8ABc/Sf+Qyr6Yao9B vvhvqniya+4CAWDc1+qR 2qIJJJI/UKqsIJ7hSm38+mq5IbHC0Li/zRHXv/Cgg/wDjdfO3/B0f/wApFdB/7Eq0/hYSs9j25inci9s 8c4Ec9ZLwLg2QKstgnDv yyekYFhx7lYo3pRzX5XiO0h/4izvDZ/5ojr3/AIP4P/jdJ/xFn+HOP+Jackie/7f8T+D/wCN1+Lko1D62Im Cd9gf0QG2xMEUJT15t3d WYtoxRROAQofP0KBwyZfCA5CRky4R6p+kV2k0TjH/B2n+EZcaR1xr0W8Zo7F3xjGeGgV62tJbOY26Duu JEr0TVMGPdaiIjeV2X1Z n39wd9TuUqo7r1q8rF2kk2oy4m9cfUYBSaw7r4zVBNI6prbvty8QTHf79m5vS0DkY1VEj0rxxrO4iNes Pu2mI0ZzmTH1jpMXSP9W y8y9J2Er6M8CQnfD359W+KLK+0+Y6h1ea0picnb7FCs4LpavvOnTRTXAv9a+WL6KsuE9pujohgytet6m 0YcRn23H68HQbw0Zf3sv IgwX89J2/uprgKfLgePGNzOQrBRS/We1f42z/ALVHjHS/NXbpvVzOnbJpyPDzqd52oeI538s7YXJ5gfd 8KKlWFdiaWzNbwvCmUk3 uxkP3zZEBjRA/JueW3X1vg5/Nec5zu6HsE9CwPhsH8ir6ms7iKXHzgtJ7nchAk/EWd4b/AOiIa/n/ALG CD/26H3Np0Y2/3nfF4y0 0ycSbakqdU9eqtv65tUBP5+q3E6vUcOqceFGSLcif81vT6V/z7pBlmfL/s1+AiFWfdtks6wKMf45mk7I E0Mc7uulEpGmDT8yt3wq TEWc4ml2VE7ryaZWayB/tlc3gv9I/CVGuiA7J5b5HmQ/pWcW8o0UICNibTs4QB0C141+yxDnN3gbXivT RL7mLTTw7lU00kacuLdP 0uwP7fFyguOkN5wytq9w9HxLs/sBuV84lH/aB+Ciac05K53iJxCNZllVFkUaEW5U4djMceni9UjGqKND VUqZ9xbgS+L8Z6e7j3gO w+Gcn9o/0KZhpfW34otPmk41XudeJICNhqSiu6JGWuoYZ3J/bs1G3t/80b9G6KE5A5bAYUwQVJzTgIwP DgfiPzq/8730g2c/grt4 Kbdr9siVCZcTn+xZpljL/APEys+gJ5/8ArV4/sIuEXbeLfzTZ6/tpRlJX+9c69N1E43+P3hz4e/F/wj4 G1L+1c5QdGZuFUAutAWE KhvkDt1TJWteESN4TbWPeG2Zh2nZHewP5K+D9E65l6Zbk2kj9FBBbTV7Le1ROzVHcTKV0zY7HqZLdd7V /nI9n7Rnmn7/xeA2Ke6y NT93lmzQy2Y5AgtnlffOliyNsghraHz97LOQk6b7PUI9jE4hiOosk1/1TorSVGvD2WPimqVxIp1EYaQH nvCEKJuFm4A8/mz6PxC7 TGQz5ISni/dt6LhToroc/HS6+Gn9s2i+Z9MHQ8uOpXur2mg6aeyzZIPmDJoqlQrIkUDRw+Wiwl53R9B8 AZqP/AAkTaSdaANk/2Zr QMPNe34Vwl5Y8h5yohT+Yfj5+zTZ/tN/fmyLsqI5Xnjs6ZOUCrtFZR9G+H0ZDWdsHXb5ZfXA+WltKMJN D5raBwvEEZD8DqaG93/a E+LukjopbFaJgT6kjSHyf7JSaSy4s08JdgC2XTvaRSouKYr4F8W75KWRbRuLaERFlbyMPlefLpU4mtL7 7LDqUaEx578sc1b8jy/7 YSmPpu3B7pZMcE1q9KT4lTHN7lAySzp5Z4uY2lKeGNiRLJZjkw+FJAnDp194/AGvfh/4I+DGh/EF9YOr vNXJm0rCGxyppIw07Rsu FLlklKMORE6XxSgktfpy0hV9EgEU+MfhPU/3ChWaIQ5H3BwaVdZv6RjNr53TyhJcS/tq0a3PkkiHmXPT 6MlokZMACeHiZaduW54T f8E/CO2WeyE/Cfir4/nSqqjvkNqbMgZzOIwU0RRbyR7pfxMNYLCVwH67iYdbWVpZFQhl2e+kKWMnGCmu ns6P40R+9/ip+5DxPjf5 [id number]Ef8ZYeAdg5d8STuN3/doqts9f0Cvev0rTTbkp17w4Z0mQjr 2OoZdyMAVbBGVIyDwa+b P29/Nl6cg9emK+G/jjS/Cfxg+BDpZ56rDUiX67O3BySsBSB8XVVHWGlGOAugkpPYxC679N/aVE1IOs97 H6VK3rixHR8n3e70R3Jn /VZqp61BzQHarU4H+9pr4CPTXE488Svj3YMxFQ+EywV0yPU5bRGQWK3Jw5zZjTjRtBVTc0lYgYmAhHOP i4dSCIORQ/Pj/AMHR/wD ykW0H/sSrT/0puK/G5ebuRel19ytGSW+gHU/hX6Q/8HR//FIcRl9VwDtF/wBKbmvk3/gn9+0/b/srftB O4u0smy2L+NTy5F2x7wf SW42cEBuGqV4UFmMXVfz5hAqHt/CR94feKfGsa+MihCabOJtou98lO+Z+LEcPpTepkWtKljCIEur4l9D pf/gnjeePvhn+xh4pDQ+ L/CNra+MbS/oK3hvyK05ScnzFAx242aSyCcr4AP8E8z4G+DnwQ8c/hsjA90DvunabEkslXS/ky4FtO9a MXnxSokiFdKSzQ5XaNYy tUsbtm9r5k/bP1ixhXDC5QDScfjNEdx7qEwMhuB1U56O5OASN8sqNTI1+g+laJp/mFCyWOcNuH91xEQG z7FXD6L8/kRmlEASd8C7 /bO73fPrOtRg5bkxiowwPQXmtzpDYljETomav/mr9JmnjKSsx8fsOI1UMBtOBWMM220hLhu8fK8cg7Kw AsFHj3QCs6Ci+r10q0xD dN48KYhz0XfFdW+aw1RhJsz5U7V/2WD3LrDUdLHWJ29YUI/JcbJOY8mT6cP0rn8TBbs5zP6/4b+INUAM Jd4rEi0NcI23/LuXcUca 4+c9UOsbV7+JWK0flNwOm1T5EEbAtW46X3/M+QzcD2WpB/fQcPe6Nb+GfEF3d+P8VbLBi/cEaFXK4xqN YeTpaAaFdcLt48VXoW6F l7VmDkswO40D7h++7G4g4XcRxd3Uu4jTWBPY4Fxyl7TTY/ORQBB5n0elB2n3y4QMGOju+W5lKK6EZAMA m9U2n2kEt1o3yN3Yy1Kf 2c7Twz/aWnatFp+sR4m4dzyuoL9MNeVY1vfM7CMBVCcdj0s0QVaFRu8+k5mdVAPuEINgDbxSJO++t10Z 9TwKdBItGf9eMLfF3v3r 0Rgq4fzujdazOia4UbkqyM6bOlJExcQzasVyvEkOdYkLr49Ia8dPIWdFTksW9R8Q5+LHwD+O/fS9aK1t 07Q7/YHC0sSSc2OP1y8G w356pYhfk46HFfYqqRjgQLilViKM+GPEC+Kf+L8Ui7PpBsydP5S+G+g3Si0He3em1K5Zdq4YDK/LTckE bYHByCLpTV8XsqfRGjVg 9mzdpMeCjVzB89tjtnxFxuwXGfu5XrmQpf/dXjQLCUd6aF0C9/wDWp+vlj3phTjT040KCi1+i30M0J0Z l2mpeC/Xf6e7QD7b43Rw P2TE24TCJgZEi2y4LRKrH0umN1Id9Mu+nL4T8N/UlWktx1m1/XSEi4uHAHDA4R0/n7NEL9kRivqkxi5p qrS6LpN/gofoHjaPUtaX wPo+bI3J2pbu5aPmYpmJT9a286is7edAK3xllOBTxK+7DtOsCo0f/IMNxjh7F0FSOm1wZfLikksRDp8a 4qnH2YjTTg50xoCbAPI/ BJgNlWNa/VZ+2oLjza0jpG+z2c0Zwq2vsX6hq8/rudRly3L8Ey6Jn31XcrlJ+ILqJbebUFgRbyaMfdRp KjdJweAqETwyMJgXXX5V 4FY7WTpJ8qGJwaFtMsRGCCjvo9U62oxlez8mdeN+F/wBqL9o/4W/OMtbo5xgDfXbbAd2OXsdHYrPwZ0J DzrIT3XhCXphgWs1qBJv WybH7A/g11JwgM/swaL8T/RAc8t8x7M+RkhA2dE+px/zjyS3DVYYiFcT+RDHCqiPYoHKknJJNZVMNKEe ab7L8/sOOpcbVVzpm19/ vv9vK4urV+z44AuCjtxss1wxk9BadEjUvYn3VpL1n2G2o4sVai03EfFf9e6YfQ/aZnnUup8t9XzflnkZ AAm82zYxZHLkWiswOzNo qG3NwDuXC4fJxJ9C7L/Aj4K+KOF2v62XL4R4xsBIbvT39B08AasEt7zPbo/PKbmCx57xAH1LP0bAl9Y/ Cn/VR8mb2a3Y1RaKlPqR 13/LmYgNZxTUVarEFRDyNiERgCFtGU30mlor1HVuuK1t3l+IJp0hgRpwi+z3M6S0a+YRgd2o8rw+p6z4 G2Aq0bagS3Fdr7ZzEH3R FWnKQKP7G7G22SyoPlD7s/jEyUgqj7am6Z+0jhzZGLTkfCG95tn6N4dWCBPikNlvYY0XwPX7VLnH/smm xm/ay+QFxcIxyGV6U4Ty Gk9Zu0EhN2aNHLRln5hRn4faMTxkFzKpRHUMaDaTNuyR/ZGXd8t58L/sC+IqCeZortXwXm7qA/wCLLlj c2g5i1sc3UzPziRrNDA7 qooGABRPDcsXOTbSt+Ia42hZe0lrzbtPHf/gio1b4P/tG+EE4mMDRAglik1EkCZ4z4DnEUnSFQ2G+0N5 hyuzx8IhITHTmZq7Bn3q XA/WhpWaL0CUiClb0KJGAOCo2ePh4jIU3k5RWTCvAwhqh0uMoESA+oH2Hqxh2O7I8cyz8HonS7o0FOlW 7ndah5m2dj1ioaL750ey N0w9wUMHOyDlMrwaMLlLqIQdPxxkjKgutq3vrB5nsrmTtrl1Crad7w3dEGpsrrqZ1zrELynkf8mALHca zBa/IHAD5D19jqOj+nTa p4V+Il1+1BcYnvtkKFnrz0XUkJnNaX6K+xQEopxbPdaz5BZEnzO3K/nKJBGC5wZq2am1fY8tFurzJDz/ sNYs7wImQG2sFtGCC2bt aH3W3s9Bk1Fl8ujaIMb7pn7yl3YBWFrNlx6/F2Pr+BGPJylLg49QiPjw2P3NdXc0M1JjF7jL1VmaF1HX kvSXV8iZRVktfnnLBNtQ gtWYAa2is2F/bY+Azn2UrwCsXgxd9w+Iu98E2DtP19szYcfeqwoVkXHMhIiyZG3ipcpfQCP1DycrOljy pYNvw1A/mxQmIm1MVJ85 wuapTV5pgnfeTPeQbIfyRCTAiazy7TpyVwvny7yi70c5VD+Do3j/gotoP/YlWn/pTcV5L/wAEwI/hsYL d9b5Rsd4o0/xIV8R+X/Z wu2YZ03p+9Cr8nw7I2y5NfX22/wAHSDqv/GOKWPAlMVvg5zsB/Sbiux/4JEf8G+D10cqJTigQ6lpP60g spUAg5J0Zwga6ssT08Xd m7XVPsXCid3SPQuz+x17BDg3EEt2Uypqw8EHyiaN96/U/PEF3kYDzs9DuIrrvUooyd+Z7P/wTt+Bnjj4 pnmZRojAjBpnqdtS5C2U GIYK1SOt1Wmm1d4hOm9YZMD/Sbwl+xPxncRypuCytaSXFNB8LS/Zhbub6BJlFt9V941fEGMRo3hl9nnw HtVynYbN0LLcLN6qy9m/ Gq5FLdZ5v1siFI61DnCrWydkogniAusp+XbQr/BL15D4ISVqZMR3jFz6RJBZA860Sc/Wq0W+XnV1eT/l 2b83c/fr71naRo7F6eSq m8ev2n83T/Jjiq9e07rgd8c7KhyhykDc9uCf+7i1g9terTcz9dn8TNarqQ2+Sn7cf/T3iwxbMfPijV4m nSFSgUjO8rvZ7g6K6ruM HHo0p5/uV+e3/AAUN/wCCk/xE/hTLbufIq5vnZuSrj4ioTXDipLdeI/YtKTsxH/ENso18dk+FwMCvnsk jcF7E3M+GuBwVKLxEIrt WNDrlpHw8B6okvH7aeQ53H3G+Z7v/AC/M9V+VH8hJrc/fp8DZ13r/NkzJ2aDFt/UsF74aLNNGIG6jER/ Aa/e3/g3FjVP+CT/gfaP +Yjqp+p6CoumkyzDhJ5Kv/BuNx/wSg8D/APYR1T/0tlrr4/rjQhnwJ1bgM4jxdljEfOaUQs2gJUPFi0I vr1R9F/tK/sb+Ze5vqe9 O6/cX2t+FvG/w2H1VC4NrCsq32UXEGNFHqxDXXWGES1Ysfuzftej5F+hS68h0MvLiLgi1utJWXRFyjwM XDC2XRHFf2r9vSbRDBfo AOamQRab6jHz8lquvC8NkI/vxkHZoQhmWzuhE9gAXLK0QBenwyi+43dVUblTuQ7UKgq2WHvAFt/hdmu/ +E5pn/iUld2klTw2ny04 8r2/A/S6I2rE8z+/g1qwH94/Ye8P6z+rtnRfD6PUwH2JDyHtgfZ58q3kmu8oJC1ewbzq9+hmyxNAj18N xW14N/Zuu/VUth6sjvc+ U3P3tPDN4Tw6JcC2mjGF/wQwh607twDb5yZgNYVDV0Mv84VCnOU4oo0uKwrTYv2Pma/WrfXM0MuGvIP4 Iva1RYrAU/CO6X/8AGqf mm8731vh+Uf5T9Wdlpc7+ZNZ/sceDdG/awk+Pfu3syrjxA13gUHrL+lNcOUKCHaeW1vfzrXVsnoYwVCb OQBjntE/Ylk+E/jDxBqf qv3vv49ZmXvUodlbwCsOwO+trOYzO1npMDKflnbH6nDM4WFsY67HNw5+CPxI/6LZr3/hO6Z/8apq/BP4 lBiMpz2n0xURlri1Qmim 20no5+HRNuuW4sXB8d38Z/vMf4l/qRH1EUev7Z7W04uofOYW3XhYOUZayhnP7vmm/OVEJQ7CaONKtlCY vO6vLS9yWKPw86B/2R7j 69lx9e69O2KfUzDZ8/sHINsH8iewnA2cODRmS9H5oDGVKs5NPEnIk1lbZqTbZx3eWL8Q+N+t+YoBK/wD IJvWnU6wfWAt+CHxJ/wC i2a9/4Tmmf/JfQ8qfJlkA73/vPf0zmK30qb/Mf45/YYhxFVuy6V/PhQtn0Ns5322Gp/te00RP2rMWjPo E4O8iLEFXCBzUisGmUda HOjHeEH6QTvBdjD2GdLQak473RgGDRBU6jh6GgBi7RK7YFWjlOByeNlLKvreK6NOxb5DoQvo3b/hSHxI H/NbNe/8ACc0z/wCNUn/ CkfiQB/qTsRmd7m2ar/orzLKSXaNm41kdG36z1Zllu7oQei9N56rVrHN/gt4qsIvVRvlhGeXY4Eskfqm JM1BnWYo6MUcgOW4ToLN L7tQCR9je4VP5qaBf3+0J4I+CmzqXhdI6z8Y592cgM3LSh3pazuhzydfYMEuyFVNzZBRH3HPW0gn+IQE hdrhnC0b3i/in9L+Q+h/ krngIe6F/qSB2Vnbb8gwprWD3XsEEfPLv+31bc4fulxz753YlO3tfkJ3/QOszAdf2FBmJa3DrFicX6xv tJ4ByZ7IFwo/Fg8d0IGe Ozv9yLWOxCfnJJ8lsvaw07LTPYcIR/wMucQOt738b31jsSDuCawHmjpGzZcBuh4shUsDg1YRqhY9Pl7E mODCnDkYcC5piL/gx8Ro Nm/18w6huPiDu7d4dko5X78iainEhg+UqKqEhy6y8svEtBxL+X6/ssLl1sBV16/Aj72kj6LS6p+r379D p/Cvw/wDFHhjVPDKyeML kR7E0a0ji1i9XpJzaUBccPYtwVJZBhY50DbpRBJESu6goE+Cf+e2s9YsLEab+9ralyMxv8+eRt4sMAdT 4HE4hUxgkcnYbYckqnZG X/iHWurHwQ+JDD/ktmu/+E5pn/wAaqI/Ag0rOnQW/JWHuMC2ZY9o4zoO571ugGpFwT1jzi/jZzVc5cS8 6/pAhziFjfJjgn0ac8bp XGnZBB5DUn9qUUIQ+XtGcOxVi/yE3H9CKCGox6lU6HsVcvjbNSqi54YdC1RzcRhs1Yz4bayezTArnBon ZtgKHMvRgYCyso8j1bdk tG5pm1XlOI/7RH/XChUlzz39ZdmxdaY6RcbU8NNFN50Sjw0sYRh1FUMgT98G7gslbyNwIDCkDegeG3To 3UWU6lAUp4Xvom2sZgVG Hlm40bVjiU+WP/BYX/glT+0p/wUm/bRs5nPwy7C0a7OpR6Qc+G4Ks2RgCEkKo976jINooohkuRMooNT8 NBUi3fuNZVT/bNG5Gqrm 4ys7NRbqG9Oz/T28Bz0ba/g1s/aGB/wCRg+Gf/gfc/wDxqg/7Cve7R1/QwfDP/wAD7n/4zRRX0/8Ar7m 380fuPA/1Lyz+V/eH/EL b+0Nn/kYPhn/4MLn/AOM1+uP/AASU/FX1FbfO/sP+G/aa2enwJzvu1j3mS8hTBklO5YgHGhJMzChjdSK 408QE9IypSY5GzIi2ujs O+isejlvD+YrPA5fSvqn2ktjn0Jyw+8UyeM/+Oc3S2Bj0+lvosZiuSsq+PJv4dUI+5ZQZQzISXVgNuQC MXOufD3PeO8uQ2x0gXSz QWmN7SuRXWdaLaiiekNWsRrGvEIcb2EP6FSIkyc0554yshoQsnlMUyUkMzxK4gET/Z8+Qrmvij4FrPrQ V6pZC0QKfdbTKN2eavbm dgFxkssmD/xARavpiX5Ith6ixZ9rjdQa/l2mKxzUYPQyARK6x+DoQUxLr43EydgpbAXFg50ji+BMFjJ9 z6eG4GuH8H/Dzjm2ZFfe 4V6poQmTnrn8z7WCaIWZUbK4bHOdhPtYG4VUYMjl4Bn++Xpx4d61+urF2FwFLYd3RTk75ukofdMneYm/ 3CpE2QetAWE26LDazwOR 59mJnYG4g93qezGqBUeNwkc7gMY1Z/Z0mbPcqWSoP2Z84YGPsyTRo9jgmcWrC6sng/Jdd1lWSNE+TAwK uWHws+NDizIcg5iJG1ww s9N8bdGqyABoPMyNM5BGEw0eAupHFC7J8JMhsTh7jEmhvhuJc+19Eb49SCQ2rXy74ehDkVGmr8AzMYvz r0ezxcw5uFrV9dR0VPX6 426De3m/WU9lzKkoNqacOW1ltfObPA5W11G7MOCfnpK7hmAnFkVPCigfZEVPtmp/tfXrVfZKW8kr0Hfl j+ef1h1W2T8pjk6dUp0F ue71qODjSn4ypPaIul5BSz+w87lhfqaZS8Y/s5/EbwUduk+QGTmD0B5WNHJvP1BUPVYcVkH0HJKLtbrR ScAFFT/BpFgRkrpmgd6w /GLmCW4cZobjd+xp+H/na6Faizg5XifCcvRW5L8xXdr7l2JB1nYdAWIY1ER8a8aKyaAvMzY+cQ1wl3Ym FQDZtQ243at75edCWeqq 0hzicX0xfN4FvZLpSAQ2tKmG0UAq5WChxZnnh3w+3f5C+oTlnHsnuM7mk+QK2Bvlsai1qXXmoYOuqqdD jJgWSRGrDpWztMcuo2yF W6+IQzMz3nQnwFASz9MhSZY2sCY+2JY+esiKMf0BKAx8YQ9RIRyCPTdN1sWOVy/ZiFdLAPTR6czm6Wjh 5438N+T7B21xgSIc7ijY td8xz5u36LvhMVVMVG4wW1KaTVQHJPqBmDtcz2Hc/Y9SgwGyfwf//2Q==></span></div><div& gt;
</div><div><table cellspacing=0 style=border-collapse:collapse; border:none> <tbody> <tr> <td style=paddinin 7px 0in 7px; width:156px valign=top><span style=font-size:11pt><span style=line-height:normal><span style=font-family:Calibri,sans-serif> </span></span></span><strong>Patient</strong>: <span class=cl inicalNoteMacroHighlighted id=[id number] macroname=PatientName& quot; spantype=macro title=#PatientName>Lavinia Valiente</span>
</td> <td style=paddinin 7px 0in 7px; width:156px valign=top&quot ;><strong>MRN: </strong><span class=clinicalNoteMacroHighlighted" id=[id number] macroname=PatientMRN spantype=macro" title=#PatientMRN>[id number]</span>
</td> <td style=paddinin 7px 0in 7px; width:156px [...]
</td> </tr> </tbody></table><div style="text- align:center><span style=font-size:16px>
<img dlgkmlrzrayrgbhi=[id number] class=clinicalNoteAudioRecordingImage createddate=05/08/2025 02:16 PM dictatedby=Katty Yu MD durationmillis=-1 okxamlig=[id number] id=[id number] sequencenumber=0" spantype=audiorecording src=[email or web address] title=Recording #0><strong>Progress Note</strong></span>
<span style=font-size:12px><span class=clinicalNoteMacroHighlighted id=[id number] macroname=EffectiveDate spantype=macro title=#EffectiveDate>05/08/2025</span></span>
</div>
</div></div><span class=clinicalNoteSectionShowSeparators clinicalNoteSectionVisible id=[id number] internalbreaksection=false lian ginalname=Hem/Onc Problem List: recognizeconcepts=true spantype=section suppressempty=false>Hem/Onc Problem List:</span>
Bilateral breast cancers.

<span class=clinicalNoteSectionShowSeparators clinicalNoteS ectionVisible id=[id number] internalbreaksection=false o riginalname=Staging: recognizeconcepts=true spantype=section sup pressempty=false>Staging:</span><ul> <li>Anatomic stage IIA/prognostic stage IA ([id number]) right breast. </li> <li>Anatomic stage IIA/prognostic stage IB ([id number]) left breast. </li></ul><span class=& quot;clinicalNoteSectionShowSeparators clinicalNoteSectionVisible id=[id number] [...] positive: No; Screening Date: 05/08/2025; Screening Tool: [facility] MD-PHQ2; Total depression score: 0</span>

Depression Plan:

<span class=clinicalNoteSectionShowSeparatorsclinicalNoteSectionVisible id=[id number] internalbreaksection=false originalname=Molecular Testing: recognizeconcepts=true spantype=& quot;section suppressempty=false>Molecular Testing:</span>

<span class=clinicalNoteSectionShowSeparators clinicalNoteSectionVisible" id=[id number] internalbreaksection=false originalname=&quo t;Cancer/Hematological History: recognizeconcepts=true spantype=section&quot ; suppressempty=false>Cancer/Hematological History:</span>
<ul> <li>12/29/2022 - Anatomic stage IIA/prognostic stage IA ([id number]) grade 2 invasive ductal carcinoma of the right breast that is ER 87%, IA 71%, HER2 IHC 2+ with FISH pending, status post mastectomy. She had a 1.5 cm right breast mass. Three of 9 lymph nodes involved. No extracapsular extension seen. Oncotype DX recurrence score 21. Thus, chemotherapy was deferred. She did receive adjuvant radiation.</li> <li>12/29/2022 - Anato paula stage IIA/prognostic stage IB ([id number]) grade 2 invasive ductal carcinoma of the left breast that is ER 97%, IA 90%, HER2 IHC 2+ with FISH negative, [...] %</td> <td>38.9</td> <td>
</td> <td>
</td> <td>
</td> <td>
</td> <td>
</td> </tr> <tr> <td> MCV fL</td> <td>89.8</td> <td>
</td> <td>
</td> <td>
</td> <td>
</td> <td>
</td> </tr> <tr> <td> &nbs p; MCH pg</td> <td>29.8</td> <td>
</td> <td>
</td> <td>
</td> <td>
</td> <td>
</td> </tr> <tr> <td> MCHC g/dL</td> <td>33.2</td> <td>
</td> <td>
</td> <td>
</td> <td>
</td> <td>
</td> </tr> <tr> <td> RDW-CV, %</td> <td>12.9</td> <td>
</td> <td>
</td> <td>
</td> <td>
</td> <td>
</td> </tr> <tr> <td> RDW-SD fL</td> <td>42.2</td> <td>
</td> <td>
</td> <td>
</td> <td>
</td> <td>
</td> </tr> <tr> <td> PLT x 10^3/uL</td> <td>202</td> <td>
</td> <td>
</td> <td>
</td> <td>
</td> <td>
</td> </tr> <tr> &lt ;td> MPV fL</td> <td>8.5 (L)</td> <td>
</td> <td>
</td> <td>
</td> <td>
</td> <td>
</td> </tr> <tr> <td>&nbs p; Mayda %</td> <td>67.5</td> <td>
</td> <td>
</td> <td>
</td> <td>
</td> <td>
</td> </tr> <tr> <td> &nb sp; LY %</td> <td>19.7 (L)</td> <td>
</td> <td>
</td> <td>
</td> <td>
</td> <td>
</td> </tr> <tr> <td> MO %</td> <td>7.8</td> <td>
</td> <td>
</td> <td>
</td> <td>
</td> <td>
</td> </tr> <tr> <td> EO %</td> <td>4.1</td> <td>
</td> <td>
</td> <td>
</td> <td>
</td> <td>
</td> </tr> <tr> <td> IG %</td> <td>0.20</td> <td>
</td> <td>
</td> <td>
</td> <td>
</td> <td>
</td> </tr> <tr> <td>&amp ;nbsp; Mayda # (ANC) x 10^3/uL</td> <td>2.94</td> <td>
</td> <td>
</td> <td>
</td> <td>
</td> <td>
</td> </tr> <tr> <td>&nb sp; BA %</td> <td>0.7</td> <td>
</td> <td>
</td> <td>
</td> <td>
</td> <td>
</td> </tr> <tr> <td> &nbs p; MO # x 10^3/uL</td> <td>0.34</td> <td>
</td> <td>
</td> <td>
</td> <td>
</td> <td>
</td> </tr> <tr> <td> EO # x 10^3/uL</td> <td>0.18</td> <td>
</td> <td>
</td> <td>
</td> <td>
</td> <td>
</td> </tr> <tr> <td> BA # x10^3/uL</td> <td>0.03</td> <td>
</td> <td>
</td> <td>
</td> <td>
</td> <td>
</td> </tr> <tr> <td> IG # x 10^3/uL</td> <td>0.01</td> <td>
</td> <td>
</td> <td>
</td> <td>
</td> <td>
</td></tr> <tr> <td> LY # x 10^3/uL</td> <td>0.86 (L)</td> <td>
</td> <td>
</td> <td>
</td> <td>
</td> <td>
</td> </tr> <tr> <th align=left> Coags</th> <td>
</td> <td>
</td> <td>
</td> <td>
</td> <td>
</td> <td>
</td> </tr> <tr> <th align=left> Chemistries</th> <td>
</td> <td>
</td> <td>
</td> <td>
</td> <td>
</td> <td>
</td> </tr> <tr> <td> Glucose mg/dL</td> <td>92</td> <td>
</td> <td>
</td> <td>
</td> <td>
</td> <td>
</td> </tr> <tr> <td&g t; BUN mg/dL</td> <td>27 (H)</td> <td>
</td> <td>
</td> <td>
</td> <td>
</td> <td>
</td> </tr> <tr> <td> Creatinine measurement, serum mg/dL</td> <td>1.1</td> <td>
</td> [...]
</td> <td>
</td> <td>
</td> <td>
</td> <t d>
</td> </tr> <tr> <td> CO2 mmol/L</td> <td>26</td> [...]
</td> <td>4.5</td> <td>
</td> <td>4.2</td> </tr> <tr> <td>& nbsp; Total protein g/dL</td> <td>7.2</td> <td>
</td> <td>
</td> <td>7.6</td> <td>
</td> <td>7.7</td> </tr> <tr> <td> Bilirubin, total mg/dL</td> <td>0.5</td> <td>
</td> <td>
</td> <td>0.07</td> <td>
</td> <td>0.4</td> </tr> <tr> <td> Bilirubin, direct mg/dL</td> <td>
</td> <td>
</td> <td>
</td> <td>0.07</td> <td>
</td> <td>0.10</td> </tr> <tr> <td> Alkaline phosphatase U/L</td> <td>83</td> <td>
</td> <td>
</td> <td>104</td> <td>
</td> <td>121</td> </tr> <tr> <td> AST/SGOT U/L</td> <td>25</td> <td>
</td> <td>
</td> <td>30</td> <td>
</td> <td>36</td> </tr> <tr> <td>&am p;nbsp; ALT/SGPT U/L</td> <td>33</td> <td>
</td> <td>
</td> <td>44</td> <td>
</td> <td>43</td> </tr> <tr> <td> & nbsp;eGFR, mL/min/1.73</td> <td>59 (L)</td> <td>
</td> <td>
</td> <td>
</td> [...]
</td> <td>
</td> </tr> <tr> <td> Vitamin B12pg/mL</td> <td>
</td> <td>
</td> <td>See attached</td> <td>
[...]
</td> <td>
</td> <td>See attached</td> <td>
</td> </tr> <tr> <th align=left> Genetics</th> <td>
</td> <td>
</td> <td>
</td> <td>
</td> <td>
</td> <td>
</td></tr> <tr> <th align=left> Lab - Other</th> <td>
</td> <td>
</td> <td>
</td> <td>
</td> <td>
</td> <td>
</td> </tr> <tr> <td> Lab Report</td> <td>
</td> <td>
</td> <td>See attached; See attached</td> <td>
</td> <td>
</td> <td>
</td> </tr> <tr> <td> BMP</td> <td>
</td> <td>See attached</td> <td>
</td> <td>
</td> <td>
</td> <td>
</td> </tr> </tbody></table></span>

<span class=clinicalNoteSectionShowSeparators clinicalNoteSectionVisible id=[id number] interna lbreaksection=false originalname=Allergies: recognizeconcepts=true" spantype=section suppressempty=false>Allergies:</span>
<span class=clinicalNoteMacroHighlighted id=[id number] macro name=Allergies parameters=ListType:Bulleted spantype=macro title =#Allergies(ListType:Bulleted)><ul> <li>Avelox</li> <li>azith romycin</li></ul></span>
<span class=clinicalNoteSectionShowSeparators clinicalNoteSectionVisible id=[id number] internalbreaksectio n=false originalname=Medications: recognizeconcepts=true spantyp e=section suppressempty=false>Medications:</span>
<span class=clinicalNoteMacroHighlighted id=[id number] macroname=&quo t;PatientMedications parameters=ListType:Numbered,Verbosity:Medium spantype= macro title=#PatientMedications(ListType:Numbered,Verbosity:Medium)><ol> <li>Meloxicam Oral</li> <li>Zyrtec (Cetirizine Oral) 10 mg tablet</li> <li>Escitalopram Oral</li> <li>Multivitamins Oral Tablet</li> <li>Vitamin B-6 (Pyridoxine Oral)</li> <li>Cholecalciferol Oral 125 mcg (5,000 unit) tablet</li> <li>Dupixent (Dupilumab Subcutaneous Pen Injector)</li> <li>Le vothyroxine Oral</li> <li>Pepcid (Famotidine Oral)</li> <li>Wellbutrin XL (B upropion (XL) Oral 24 hr Tab)</li> <li>Ferrous Sulfate Oral 325 mg (65 mg iron) tablet</li> <li>Vitamin C (Ascorbic Acid Oral)</li> <li>Cyanocobalamin Oral</li></ol></span>
<span class=clinicalNoteSectionShowSeparators clinicalNoteSectionVisible id=[id number] internalbreaksection="false originalname=Family History: recognizeconcepts=true spantype="section suppressempty=false>Family History:</span>
Mother had breast cancer. Father had colon cancer.

<span class=clinicalNoteSectionShowSeparators clinicalNoteSectionVisible id=[id number] internalbre aksection=false originalname=Social History: recognizeconcepts=true" spantype=section suppressempty=false>Social History:</span>
Never smoker.
<span class=clinicalNoteSectionShowSeparators clinicalNoteSect ionVisible id=[id number] internalbreaksection=false or iginalname=. recognizeconcepts=true spantype=section suppressemp ty=false>.</span>
Discussion with Patient/Family/Other Providers: As noted above

<span class=clinicalNoteMacroHighlighted id=&q uot;[id number] macroname=Author spantype=macro title=&quo t;#Author>Katty Yu MD</span>

<strong>Send copy of note to</strong>: <span class=clinicalNoteMacroHighlighted id=[id number] macroname=NoteRecipients spantype=macro title=#NoteRecip ients>Liseth Zamora (Referring)</span>

</div>

<div><span class=eSignSignature>Electronically signed by Katty Yu MD 05/22/2025 09:50 PM CDT</span&g t;</div></body></html>
--- OUTSIDE RECORDS SUMMARY | 2025-07-03 00:50 | XMS_ITS | Encounter Summary ---
Author Organization [facility] Address [address] 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 Name Role Phone Liseth Zamora MD Primary Care Provider Shannon Flores RN Unavailable Unavailable Ludivina Damon MD Unavailable Lynn Carney RN Unavailable Unavaila Ruy Arora MD Unavailable [phone] Amina Allen APRN, CNP Unavailable [phone] Reason for Visit * Reason Comments Medication Refill Encounter Details Date Type Department Care Team (Late st Contact Info) Description 09/24/2022 Refill [facility] [address] [place] [address] Liseth Zamora MD [address] [place] [address] Medication Refill Social History Tobacco Use Types Packs/Day Years Used Date Smoking Tobacco: Never Smokeless Tobacco: Never Alcohol Use Standard Drinks/Week Comments Yes 1 (1 standard drink = 0.6 oz pur e alcohol) PHQ-2 Answer Date Recorded Total Score - Questions 1-9 0 04/21 Education Answer Date Recorded What is the highest level of school you have completed or the highest degree you have received? Associate degree: academic program 05/15/2022 Comments No Sex and Gender Information Value Date Recorded Sex Assigned at Not on file Legal Sex Female 10:19 PM CDT Gender Identity Not on file Sexual Orientation Not on file COVID-19 Exposure Response Date Recorded In the last 10 days, have yo u been in contact with someone who was confirmed or suspected to have Coronavirus/COVID-19? No / Unsure 09/07/2022 12:55 PM SECOND CRUSHER documented as of this encounter Miscellaneous Notes * Telephone Encounter - Jaqueline Randolph RN - 09/28/2022 3:20 PM SECOND CRUSHER Sent [employer] message to patient. ND CRUSHER * Telephone Encounter - Liseth Zamora MD - 09/25/2022 2:07 PM SECOND CRUSHER She is on several other medications for anxiety and was doing well when I saw her, She should follow up with me to discuss this one as for [facility] it is not recommended. ND CRUSHER * Telephone Encounter - Jaqueline Randolph RN - 09/25/2022 8:10 AM SECOND CRUSHER Medication failed the protocol, provider to review and approve the medication order if appropriate. Requested Prescriptions Pending Prescriptions Disp Refills ALPRAZolam (XANAX) 0.25 MG Tablet [Pharmacy Med Name: ALPRAZOLAM 0.25MG TABLETS] 60 Tablet Sig: TAKE 1 TABLET BY MOUTH THREE TIMES DAILY NEEDED FOR ANXIETY Not Delegated - Benzodiazepines Protocol Failed - 09/24/2022 5:17 PM Failed - This refill cannot be delegated Passed - Visit with relevant provider in past 12 months or upcoming 90 days Recent Visits Date Type Provider Dept 05/18/22 Office Visit Liseth Zamora MD [facility] Showing recent visits within past 365 days and meeting all other requirements Future Appointments Date Type Provider Dept 11/17/22 Appointment Liseth Zamora MD [facility] Showing future appointments within next 90 days and meeting all other requirements ND CRUSHER documented in this encounter Plan of Treatment Upcoming Encounters Date Type Department Care Team (Latest Contact Info) Description 07/12/2025 9:30 AM CDT Outpatient Clinic Visit [facility] [address] [place] [address] Luisa Thornton APRN, PROJECT CONTROL ANALYST [address] [place] [address] Discharge Disposition: Discharged to home or Selfcare 10/11/2025 9:30 AM SECOND CRUSHER Outpatient Clinic Visit [facility] [address] [place] [address] Luisa Thornton APRN, PROJECT CONTROL ANALYST [address] [place] [address] Discharge Disposition: Discharged to home or Selfcare 11/15/2025 9:30 AM SECOND CRUSHER Outpatient Clinic Visit [facility] [address] [place] [address] Luisa Thornton APRN, PROJECT CONTROL ANALYST [address] [place] [address] Discharge Disposition: Discharged to home or Selfcare 12/13/2025 9:30 AM CDT Outpatient Clinic Visit [facility] [address] [place] [address] Luisa Thornton APRN, PROJECT CONTROL ANALYST [address] [place] [address] 12/13/2025 11:00 AM CDT Office Visit [facility] - Cardiology [facility] [address] [place] [id number] Ludivina Damon MD [address] [place] [address] 12/20/2025 9:40 AM CDT Office Visit [facility] Medical [facility] - Primary [facility] [address] [place] [address] Liseth Zamora MD [address] [place] [address] documented as of this encounter Visit Diagnoses Not on filedocumented in this encounter Care Teams Crepe 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
--- OUTSIDE RECORDS SUMMARY | 2025-07-03 00:50 | XMS_ITS | Encounter Summary ---
Author Organization [facility] Address [address] [place] [address] Phone Care Team Providers Care Admission Specialist Name Role Phone Liseth Zamora MD Primary Care Provider Shannon Flores RN Unavailable Unavailable Ludivina Damon MD Unavailable [phone] Lynn Carney RN Unavailable Unavaila Ruy Arora MD Unavailable [phone] Amina Allen APRN, MYLES Unavailable + [phone] Reason for Referral * PT/OT/ST (Routine) - Authorized Specialty Diagnoses / Procedures Referred By Contac t Referred To Contact Rehabilitation Diagnoses Malignant neoplasm of upper-inner quadrant of right female breast, unspecified estrogen receptor status Malignant neoplasm of overlapping sites of left female breast, unspecified estrogen receptor status Katty Yu MD [address] [place] [address] Phone: tel: fax: [facility] [address] [place] [address] Phone: tel: fax: Referral ID Status Reason Start Date Expiration Date V isits Requested Visits Authorized [id number] Authorized 09/01/2024 50 50 Scheduling Instructions [employer] INTERN Encounter Details Date Type Department Care Team (Latest Contact Info) Description 09/01/2024 Transcribe Orders [facility] [address] [place] [address] Katty uY MD [address] [place] [address] Malignant neoplasm of upper-inner 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 No 10/26/2023 Social Connection and Isolation Panel Answer Date Recorded In a typical week, how many times do you talk on the phone with family, friends, or neighbors? More than three times a week 10/26/2023 How often do you get togethe r with friends or relatives? More than three times a week 10/26/2023 How often do you attend chur ch or yazdanism services? Never 10/26/2023 Do you belong to any clubs o r organizations such as jew groups, unions, fraternal or athletic groups, or school groups? No 10/26/2023 How often do you attend meet ings of the clubs or organizations you belong to? Never 10/26/2023 Are you , , di vorced, , never , or living with a partner? 10/26/2023 AUDIT-C Answer Date Recorded Q1: How often do you have a drink containing alc ohol? 2-4 times a month 10/26/2023 Q2: How many drinks containi ng alcohol do you have on a typical day when you are drinking? 1 or 2 10/26/2023 Q3: How often do you have si x or more drinks on one occasion? Never 10/26/2023 Overall Financial Resource Strain (CARDIA) Answe r Date Recorded How hard is it for you to pa y for the very basics like food, housing, medical care, and heating? Somewhat hard 10/26/2023 PHQ-2 Answer Date Recorded Total Score - Questions 1-9 9 04/20 [facility] - Occupational Stress Questionnaire Answer Date Recorded Do you feel stress - tense, restless, nervous, or anxious, or unable to sleep at night because your mind is troubled all the time - these days? Only a little 10/26/2023 Exercise Vital Sign Answer Date Recorde d On average, how many days pe r week do you engage in moderate to strenuous exercise (like a brisk walk)? 0 days 10/26/2023 On average, how many minutes do you engage in exercise at this level? 0 min 10/26/2023 Hunger Vital Sign Answer Date Recorded Within the past 12 months, y ou worried that your food would run out before you got the money to buy more. Never true 10/26/19 24 Within the past 12 months, t he food you bought just didn't last and you didn't have money to get more. Never true 10/26/2023 PRAPARE - Transportation Answer Date Re corded In the past 12 months, has l ack of transportation kept you from medical appointments or from getting medications? No 02/2024 In the past 12 months, has l ack of transportation kept you from meetings, work, or from getting things needed for daily living? No 10/26/2023 Housing Stability Vital Sign Answer [...] place to sleep or slept in a mcc (including now)? No 10/26/2023 Education Answer Date Recorded What is the [...] 07/12/2025 9:30 AM CDT Outpatient Clinic Visit [facility] Weight Management [address] [place] [address] Luisa Thornton APRN, RECREATION FACILITY MANAGER [address] [facility] [address] [address] [place] [address] Discharge Disposition: Discharged to home or Selfcare 10/11/2025 9:30 AM CORPORATE COMMUNICATIONS INTERN Outpatient Clinic Visit [facility] Weight Management [address] [place] [address] Luisa Thornton APRN, RECREATION FACILITY MANAGER [address] [facility] [place] [address] [place] [address] Discharge Disposition: Discharged to home or Selfcare 11/15/2025 9:30 AM CORPORATE COMMUNICATIONS INTERN Outpatient Clinic Visit [facility] Weight Management [address] [place] [address] Luisa Thornton APRN, RECREATION FACILITY MANAGER [address] [facility] [place] [address] [place] [address] Discharge Disposition: Discharged to home or Selfcare 12/13/2025 9:30 AM CDT Outpatient Clinic Visit [facility] Weight [facility] [address] [place] [address] Luisa Thornton APRN, RECREATION FACILITY MANAGER [address] [facility] [place] [address] [place] [address] 12/13/2025 11:00 AM CDT Office Visit [facility] Cardiovascular [place] - Cardiology [facility] [address] [place] [address] Ludivina Damon MD [address] [place] [address] 12/20/2025 9:40 AM CDT Office Visit [facility] Primary [facility] [address] [place] [address] Liseth Zamora MD [address] [place] [address] Scheduled Referrals Name Type Priority Associated Diagnoses Orde r Schedule [facility] OT[facility] Outpatient Referral Routine Malignant neoplasm of upper-inner quadrant of right female breast, unspecified estrogen receptor status (HCC) Malignant neoplasm of overlapping sites of left female breast, unspecified estrogen receptor status (HCC) Expected: 09/01/2024, Expires: 09/01/2025 documented as of this encounter Goals Goal Patient Goal Type Associated Problems Recent Progress Patient-Stated? Author Patient will have better understanding of her cancer diagnosis Care Coordination No Shannon Flores, RN Note: Goal Reviewed with: patient Readiness to change: Ready to change Department associated with goal: [facility] Steps to achieve goal: Patient will learn the pathophysiology of her cancer diagnosis, including the implications of hormone receptors Patient will learn about typical treatment options for breast cancer 3. 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 breast, unspecified estrogen receptor status- Primary Malignant neoplasm of overlapping sites of left female breast, unspecified estrogen receptor status documented in this encounter Additional Health Concerns Assessment Noted Time PHQ-9 Depression Total Score: 9 05/02/20 24 9:36 AM CDT documented as of this encounter Care Teams Admission Specialist Relationship Specialty Start Date End Date Liseth Zamora MD PCP - General Family Medicine 03/17/22 Shannon Flores, RN [place] Oncology Nurse Navigator 12/11/22 Ludivina Damon MD [place] Consulting Physician Cardiovascular Disease - Cardiology 05/18/23 Lynn Carney, vocational services specialist Nurse Navigator 06/30/23 Ruy Lopez MD [address] [place] [address] Consulting Physician General Surgery 03/27/24 Amina Allen APRN, RECREATION FACILITY MANAGER [address] [place] [address] Nurse Practitioner Advanced Practice Nurse 12/05/24 documented as of this encounter
--- OUTSIDE RECORDS SUMMARY | 2025-07-03 00:50 | XMS_ITS | Encounter Summary ---
Author Organization [facility] Address [address] [place] [address] Phone Care Team Providers Care Public Information Director Name Role Phone Naresh Stacy MD Primary Care Provider Suzette Smith MD Primary Care Provider Liseth Zamora MD Primary Care Provider Shannon Flores RN Unavailable Unavailable Ludivina Damon MD Unavailable Lynn Carney RN Unavailable UnavailRuy Coles MD Unavailable [phone] Amina Allen APRN, BLOWER OPERATOR Unavailable [phone] Encounter Details Date Type Department Care Team (Latest Contact Info) Description 10/14/2021 Transcribe Orders [facility] [address] [place], [place] [address] Chantel Cuba APRN, BLOWER OPERATOR [address] [address] ETHAN (obstructive sleep apnea) (Primary Dx) Social History Tobacco Use Types Packs/Day Years [...] 07/12/2025 9:30 AM CDT Outpatient Clinic Visit [facility] [address] [place] [address] Luisa Thornton APRN, BLOWER OPERATOR [address] [facility] [address] [place] [address] Discharge Disposition: Discharged to home or Selfcare 10/11/2025 9:30 AM CIVIL CLERK Outpatient Clinic Visit [facility] [address] [place] [address] Luisa Thornton APRN, BLOWER OPERATOR [address] [place] [address] [place] [address] Discharge Disposition: Discharged to home or Selfcare 11/15/2025 9:30 AM CIVIL CLERK Outpatient Clinic Visit [facility] [address] [place] [address] Luisa Thornton APRN, BLOWER OPERATOR [address] [facility] [address] [address] [place] [address] Discharge Disposition: Discharged to home or Selfcare 12/13/2025 9:30 AM CDT Outpatient Clinic Visit [facility] [address] [place] [address] Luisa Thornton APRN, BLOWER OPERATOR [address] [facility] [address] [address] [place] [address] 12/13/2025 11:00 AM CDT Office Visit [facility] Cardiovascular [place] - Cardiology [facility] [address] [place] [address] Ludivina Damon MD [address] [place] [address] 12/20/2025 9:40 AM CDT Office Visit [facility] [place] [address] [place] [address] Liseth Zamora MD [address] [place] [address] documented as of this encounter Visit Diagnoses Diagnosis ETHAN (obstructive sleep apnea)- Primary Obstructive sleep apnea (adult) (pediatric) documented in this encounter Care Teams Public Information Director Relationship Specialty Start Date End Date Naresh Stacy MD [address] [place] [address] PCP - General Family Medicine 05/01/21 12/23/21 Suzette Smith MD [address] [place] [id number] PCP - General Family Medicine 12/24/21 03/16/22 Liseth Zamora MD [address] [address] PCP - General Family Medicine 03/17/22 Shannon Flores RN [place] Oncology Nurse Navigator 12/11/22 Ludivina Damon MD [place] Consulting Physician Cardiovascular Disease - Cardiology 05/18/23 Lynn Carney, supervisor last model department Nurse Navigator 06/30/23 Ruy Lopez MD [address] [place] [address] Consulting Physician General Surgery 03/27/24 Amina Allen APRN, BLOWER OPERATOR [address] [place] [address] Nurse Practitioner Advanced Practice Nurse 12/05/24 documented as of this encounter
--- OUTSIDE RECORDS SUMMARY | 2025-07-03 00:50 | XMS_ITS | Encounter Summary ---
Author Organization [facility] Address [address] [place] [address] Phone Care Team Providers Care Cushion Worker Name Role Phone Naresh Stacy MD Primary Care Provider Suzette Smith MD Primary Care Provider Liseth Zamora MD Primary Care Provider Shannon Flores RN Unavailable Unavailable Ludivina Damon MD Unavailable Lynn Carney RN Unavailable UnavailRuy Coles MD Unavailable Amina Allen APRN, STEAM HOIST OPERATOR Unavailable [phone] Encounter Details Date Type Department Care Team (Latest Contact Info) Description 07/18/2021 Transcribe Orders [facility] Patient Access Admitting [address] [place] [address] Naresh Stacy MD [address] [address] Impaired fasting glucose (Primary Dx) Social History Tobacco Use Types Packs/Day Years Used Date Smoking Tobacco: Never Assessed Comments Unknown Sex and Gender Information Value Date Recorded Sex Assigned at Not on file Legal Sex Female 10:19 PM CDT Gender Identity Not on file Sexual Orientation Not on file COVID-19 Exposure Response Date Recorded In the last month, have you been in contact with someone who was confirmed or suspected to have Coronavirus / COVID-19? No / Unsure 07/18/2021 10:09 AM CDT documented as of this encounter Plan of Treatment Upcoming Encounters Date Type Department Care Team (Latest Contact Info) Description 07/12/2025 9:30 AM CDT Outpatient Clinic Visit [facility] Weight Management [address] [place] [address] Luisa Thornton APRN, STEAM HOIST OPERATOR [address] [facility] [place] [address] [place] [address] Discharge Disposition: Discharged to home or Selfcare 10/11/2025 9:30 AM MANAGER HOUSEKEEPING Outpatient Clinic Visit [facility] Weight Management [address] [place] [address] Luisa Thornton APRN, STEAM HOIST OPERATOR [address] [facility] [address] [place] [address] Discharge Disposition: Discharged to home or Selfcare 11/15/2025 9:30 AM MANAGER HOUSEKEEPING Outpatient Clinic Visit [facility] Weight Management [address] [place] [address] Luisa Thornton APRN, STEAM HOIST OPERATOR [address] [facility] [place] [address] [place] [address] Discharge Disposition: Discharged to home or Selfcare 12/13/2025 9:30 AM CDT Outpatient Clinic Visit [facility] Weight Management [address] [place] [address] Luisa Thornton APRN, STEAM HOIST OPERATOR [address] [facility] [place] [address] [place] [address] 12/13/2025 11:00 AM CDT Office Visit [facility] Cardiovascular [place] - Cardiology [facility] [address] [place] [address] Ludivina Damon MD [address] [place] [address] 12/20/2025 9:40 AM CDT Office Visit [facility] [address] [place] [address] Liseth Zamora MD [address] [place] [address] documented as of this encounter Results * (ABNORMAL) BASIC METABOLIC PANEL W/ CALCIUM TOTAL (07/18/2021 10:13 AM CDT) SODIUM 140 136 - 145 mmol/L 07/18/2021 12:32 PM CDT [facility] POTASSIUM 4.2 3.5 - 5.1 mmol/L 07/18/2021 12:32 PM CDT [facility] CHLORIDE 107 98 - 107 mmol/L 07/18/2021 12:32 PM CDT [facility] CO2, VENOUS 27 22 - 30 mmol/L 07/18/2021 12:32 PM CDT [facility] ANION GAP 6.0 <18.0 mmol/L 07/18/2021 12:32 PM CDT [facility] GLUCOSE 96 70 - 99 mg/dL 07/18/2021 12:32 PM CDT [facility] BUN 20 10 - 20 mg/dL 07/18/2021 12:32 PM CDT [facility] CREATININE, BLOOD 1.18(H) 0.60 - 1.00 mg/dL 07/18/2021 12:32 PM CDT [facility] BUN/CREATININE RATIO 17 12 - 20 ratio 07/18/2021 12:32 PM CDT [facility] CALCIUM 9.7 8.7 - 10.5 mg/dL 07/18/2021 12:32 PM CDT [facility] GFR, EST. NONAFRICAN 46(L) >=60 07/18/2021 12:32 PM CDT [facility] GFR, EST. 56(L) >=60 07/18/2021 12:32 PM CDT [facility] Comment: Creatinine Clearance is the preferred criteria for selecting drug dose adjustments in renally impaired patients. The GFR is provided as additional pertinent clinical information. GFR is reported in mL/min/1.73 sq m. IS THE PATIENT REQUIRED TO BE FASTING? No 07/18/2021 12:32 PM CDT [facility] Blood Venipuncture / Unknown 07/18/2021 10:13 AM CDT 07/18/2021 10:34 AM CDT Naresh Stacy MD CHEMISTRY ORDERABLES Final Result Performing Organization Address City/[facility]/ZIP Co de Phone Number [facility] [address] [place] [address], * HEMOGLOBIN A1C W/ ESTIMATED GLUCOSE (07/18/2021 10:13 AM CDT) HGB-A1C 4.8 4.0 - 6.0 % 07/18/2021 9:06 PM CDT [facility] Est Average Glucose 91.1 mg/dL 07/18/2021 9:06 PM CDT [facility] Blood Venipuncture / Unknown 07/18/2021 10:13 AM CDT 07/18/2021 10:34 AM CDT Narrative [facility] - 07/18/2021 9:06 PM CDT Specimens containing greater than 5% of Hemoglobin F may result in lower than expected % HbA1C results. Naresh Stacy MD CHEMISTRY ORDERABLES Final Result [facility] [address] [place] [address], documented in this encounter Visit Diagnoses Diagnosis Impaired fasting glucose- Primary documented in this encounter Care Teams Cushion Worker Relationship Specialty Start Date End Date Naresh Stacy MD [address] [address] PCP - General Family Medicine 05/01/21 12/23/21 Suzette Smith MD [address] [address] PCP - General Family Medicine 12/24/21 03/16/22 Liseth Zamora MD [address] [id number] PCP - General Family Medicine 03/17/22 Shannon Flores RN [place] Oncology Nurse Navigator 12/11/22 Ludivina Damon MD [place] Consulting Physician Cardiovascular Disease - Cardiology 05/18/23 Lynn Carney, box fabricator Nurse Navigator 06/30/23 Ruy Lopez MD [address] [place], [place] [id number] Consulting Physician General Surgery 03/27/24 Amina Allen APRN, STEAM HOIST OPERATOR [address] [place] [address] Nurse Practitioner Advanced Practice Nurse 12/05/24 documented as of this encounter
--- NOTE | 2025-07-03 01:08 | ED.GENADULT ---
HPI - General Adult General Chief complaint: Abdominal Pain Stated complaint: upper abdominal pain, nausea Time Seen by Provider: 07/03/25 00:27 History of Present Illness HPI narrative: This is a 70-year-old female presenting with epigastric pain. Patient had dinner around 6. She then developed a sharp pain in the epigastric area that wraps around to her back. She says this feels similar to hiatal hernia pain ?that she has had in the past. She is on Pepcid twice daily for gastritis/GERD. She did not have any fevers. No nausea vomiting or diarrhea. No chest pain or difficulty breathing. Related Data Home Medications ?Medication ?Instructions ?Recorded ?Confirmed ?Last Taken ?Type cetirizine 10 mg tablet (Zyrtec) 10 mg PO DAILY PRN allergy symptoms 04/17/20 12/15/21 Unknown History emollient combination no.71 ea topical .COMPLEX 12/15/21 12/15/21 Unknown History (Lubriderm Advanced Therapy lotion) Allergies Allergy/AdvReac Type Severity Reaction Status Date / Time azithromycin Allergy Mild SEVERE Verified 11/16/19 06:30 ITCHEY FEET, RASH HEEL Macrolide Antibiotics Allergy Mild Verified 11/16/19 06:30 Quinolones Allergy Mild RASH LIKE Verified 11/16/19 06:30 SUNBURNED SKIN MOXIFLOXACIN HCL Allergy Mild RASH Uncoded 11/16/19 06:30 PMFSH Past Medical History Medical History Obesity (BMI 30.0-34.9) Dyshidrotic eczema Breast cancer screening by mammogram BMI 33.0-33.9,adult Abnormal fasting glucose (03/08/21) fasting glucose 114 on 03/08/2021. Fasting glucose 96 with hemoglobin A1c 4.8 on 07/13/2021 Acute non-recurrent maxillary sinusitis Chronic anxiety Chronic renal insufficiency BUN 20 with creatinine 1.18 on 07/18/2021 BMI 32.0-32.9,adult Family history of colon cancer in father Colon cancer screening Basal cell carcinoma Gastro-esophageal reflux disease without esophagitis Seasonal allergic rhinitis Encounter for wellness examination in adult Body mass index (bmi) 31.0-31.9, adult (06/16/18) ETHAN (obstructive sleep apnea) home sleep study on 06/16/2021 reveals moderate ETHAN with AHI of 17.8 with oxygen saturation down 83%. Order auto titrating CPAP at 5-20 cm of water pressure with heated humidity and appropriate interface Hypothyroidism Surgical History Surgical History H/O: hysterectomy Family History Family History Grandparent Acute myocardial infarction, Onset Age: 52 Father Carcinoma of colon, Onset Age: 71 Family history of emphysema Family history of chronic obstructive pulmonary disease Mother Family history of malignant neoplasm of breast in first degree relative, Onset Age: 72 Family history of chronic obstructive pulmonary disease Family history of emphysema Other Family history of malignant neoplasm of breast Social History Social History (Updated 12/15/21 @ 14:19 by Susy Phillip MA) Smoking status: Never smoker Second hand tobacco smoke exposure: No Alcohol intake: former Substance use: never Substance use type: does not use Exam Narrative: APPEARANCE: No apparent distress. Head: atraumatic. EYES: EOMI, NOSE: Atraumatic NECK: Trachea midline RESPIRATORY: No increased rate of breathing clear to auscultation CARDIOVASCULAR: RRR, no peripheral edema ABDOMINAL: Non-distended soft nontender no guarding rebound no CVA tenderness MUSCULOSKELETAl: No obvious deformities NEURO: Alert. Moving 4/4 extremities SKIN:: Warm, dry. Normal color PSYCHIATRIC: Normal affect Course Vital Signs Vital signs: Vital Signs Temperature 97.8 F 07/02/25 19:37 Pulse Rate 88 07/02/25 19:37 Respiratory Rate 20 07/02/25 19:37 Blood Pressure 150/98 H 07/02/25 19:37 Pulse Oximetry 97 07/02/25 19:37 Oxygen Delivery Room Air 07/02/25 19:37 Temperature 97.8 F 07/02/25 21:31 Pulse Rate 75 07/03/25 03:51 Respiratory Rate 17 07/03/25 03:51 Blood Pressure 140/87 07/03/25 03:51 Pulse Oximetry 94 07/03/25 03:51 Oxygen Delivery Room Air 07/02/25 19:37 Medical Decision Making MDM Narrative Medical decision making narrative: -Course: 70-year-old female presenting w/ epigastric pain. Abdominal exam is benign. Vital signs are stable. Laboratory studies within normal limits. CT abdomen pelvis ordered due to advanced age. Patient given GI cocktail and Pepcid and pain medication. CT abdomen pelvis was read as a hiatal hernia containing portions of the stomach with possible gastric volvulus. On evaluation the patient is resting comfortably. She is able to tolerate p.o.. This was discussed with Dr. Celaya feel it is unlikely that she has a volvulus given how well appearing she is in that she is tolerating food. Patient was re-evaluated is resting comfortably in bed. She was informed with the results. She is not from this area but she has a GI doctor that she is comfortable following up with. Given return precautions for severe abdominal pain or intractable nausea and vomiting. -DDX includes but is not limited to: Gastritis, GERD, hiatal hernia, pneumonia, ACS -Co-morbidities complicating care: Hiatal hernia depression anxiety Vital Signs Vital Signs: Vital Signs Temperature 97.8 F 07/02/25 19:37 Pulse Rate 88 07/02/25 19:37 Respiratory Rate 20 07/02/25 19:37 Blood Pressure 150/98 H 07/02/25 19:37 Pulse Oximetry 97 07/02/25 19:37 Oxygen Delivery Room Air 07/02/25 19:37 Temperature 97.8 F 07/02/25 21:31 Pulse Rate 75 07/03/25 03:51 Respiratory Rate 17 07/03/25 03:51 Blood Pressure 140/87 07/03/25 03:51 Pulse Oximetry 94 07/03/25 03:51 Oxygen Delivery Room Air 07/02/25 19:37 Lab Data 07/02/25 21:29 07/02/25 21:29 Labs: Lab Results 07/02/25 07/03/25 07/03/25 Range/Units 21:29 00:07 02:55 WBC 6.8 (4.5-10.0) K/mm3 RBC 4.59 (4.2-5.4) M/mm3 Hgb 13.5 (12.0-15.0) g/dL Hct 40.7 (37.0-47.0) % MCV 88.7 (80-100) fl MCH 29.4 (26-34) pg MCHC 33.2 (32-36) g/dl RDW 12.6 (11.5-14.5) % Plt Count 239 (150-375) k/mm3 MPV 8.6 (7.4-10.4) fl Immature Gran % (Auto) 0.1 (0-0.5) % Neut % (Auto) 78.1 H (45.5-73.1) % Lymph % (Auto) 12.9 L (18.3-44.2) % Tillman % (Auto) 5.4 (2.6-8.5) % Eos % (Auto) 2.5 (0-4.4) % Baso % (Auto) 1.0 (0.2-1.2) % Lymph # (Auto) 0.88 L (0.9-3.2) K/mm3 Tillman # (Auto) 0.4 (0.1-0.6) K/mm3 Eos # (Auto) 0.2 (0-0.3) K/mm3 Baso # (Auto) 0.1 (0.0-0.1) K/mm3 Abs Immat Gran (auto) 0.01 (0.00-0.031) K/mm3 Absolute Neuts (auto) 5.3 (1.3-6.7) K/mm3 Absolute Nucleated RBC 0.000 (0.0-0.012) K/mm3 Nucleated RBC % 0.0 (0.0-0.2) % PT 13.7 (11.1-14.7) Seconds INR 1.1 APTT 34.1 (22.3-36.8) Seconds Sodium 138 (137-145) mmol/L Potassium 4.1 (3.4-5.0) mmol/L Chloride 103 (98-107) mmol/L Carbon Dioxide 24 (22-30) mmol/L Anion Gap 11 (4-12) mmol/L BUN 26 H (7-17) mg/dL Creatinine 0.97 (0.7-1.0) mg/dL Estim Creat Clear Calc 54 ml/min Estimated GFR 57 L (59 - ) Glucose 123 H (65-110) mg/dL Calcium 9.6 (8.4-10.2) mg/dL Total Bilirubin 0.4 (0.2-1.3) mg/dL AST 40 H (14-36) U/L ALT 32 (6-35) U/L Alkaline Phosphatase 114 (38-126) U/L Troponin I < 0.012 < 0.012 < 0.012 (0.000-0.034) ng/mL Total Protein 8.4 H (6.3-8.2) g/dL Albumin 4.8 (3.5-5.1) g/dL Lipase 125 (23-300) U/L Discharge Plan Discharge Clinical Impression: Hernia, hiatal Patient Disposition: Home Condition: Stable Instructions: Antibiotic Form, Hiatal Hernia (DC) Additional Instructions: You were seen in the emergency department for epigastric pain. This may have been caused by hiatal hernia. Please follow-up with your GI physician as soon as possible preferably in the next week for further management. If you develop severe abdominal pain, inability to swallow food or liquids or any new or worsening symptoms please return to ED re-evaluation. Patient Language: Czech Prescriptions: No Action cetirizine [Zyrtec] 10 mg tablet 10 mg PO DAILY PRN (Reason: allergy symptoms) bupropion HCl 300 mg tablet extended release 24 hr 300 mg PO QAM Qty: 90 3RF buspirone 15 mg tablet 15 mg PO BID Qty: 180 3RF escitalopram oxalate 10 mg tablet 10 mg PO DAILY Qty: 90 3RF famotidine 20 mg tablet 20 mg PO BID PRN (Reason: GERD) Qty: 180 3RF levothyroxine 100 mcg tablet 100 mcg PO DAILY Qty: 90 3RF alprazolam 0.25 mg tablet 0.25 mg PO TID PRN (Reason: anxiety) Qty: 60 5RF amoxicillin 250 mg capsule 500 mg PO Q12H Qty: 40 0RF Rx Instructions: patient cannot swallow large pills triamcinolone acetonide 0.5 % cream 1 applic topical BID Qty: 30 5RF Rx Instructions: apply to rash on hands twice daily for up to 2 weeks at a time as needed for eczema Lubriderm Advanced Therapy Lotion topical .COMPLEX Rx Instructions: Frequency: several times daily Follow-up/Referrals: PHYSICIAN NOT ON STAFF,NONSTAFF [Primary Care Provider]
[2025-07-03] MEDS: MAG HYDROX/AL HYDROX/SIMETH 30 ML UDC PO (01:12)
[2025-07-03] MEDS: ONDANSETRON INJ 4 MG/2 ML VIAL IV PUSH (01:13)
[2025-07-03] MEDS: FAMOTIDINE 20 MG/2 ML VIAL IV PUSH (01:15)
--- NOTE | 2025-07-03 02:37 | ECG_ITS ---
Test Date: 2025-07-03 02:41:32 Measurements Intervals [place] Rate: 79 P: 52 [place]: 191 QRS: -26 QRSD: 97 T: 60 QT: 394 QTc: 452 Interpretive Statements SINUS RHYTHM INCOMPLETE RIGHT BUNDLE BRANCH BLOCK POSSIBLE ANTERIOR MYOCARDIAL INFARCTION , OF INDETERMINATE AGE BORDERLINE ST-T WAVE ABNORMALITY- DIFFUSE LEADS BASELINE ARTIFACT- I, II, AVR, AVL, AVF, V1 ABNORMAL ECG Compared to ECG 07/03/2025 00:14:28 NO SIGNIFICANT CHANGE Electronically Signed On 07-03-2025 05:38:38 CDT by Christopher Lynch D.O.
[2025-07-03] MEDS: HYDROmorphone HCL INJ (*CRX) 1 MG/ML SYR 0.5 MG IV PUSH (02:40)
[2025-07-03 03:37] LABS: Troponin I < 0.012 ng/mL (0.000-0.034)
[2025-07-03 03:51] VITALS: BP 140/87; PULSE 75; RESP 17; O2SAT 94
[2025-07-03 06:48] VITALS: BP 126/84; PULSE 85; RESP 16; O2SAT 97
[2025-07-03 07:01] VITALS: BP 126/84; PULSE 85; RESP 16; O2SAT 97
== END 2025-07-03 07:12 | disposition home or self-care (01) ==
PROVIDERS: Emergency Provider Emergency Medicine
DX: K44.9 Diaphragmatic hernia without obstruction or gangrene (principal); N18.9 Chronic kidney disease, unspecified; E03.9 Hypothyroidism, unspecified; K21.9 Gastro-esophageal reflux disease without esophagitis; G47.33 Obstructive sleep apnea (adult) (pediatric); F41.9 Anxiety disorder, unspecified; F32.A Depression, unspecified; Z85.828 Personal history of other malignant neoplasm of skin; Z90.710 Acquired absence of both cervix and uterus; Z79.899 Other long term (current) drug therapy; I44.4 Left anterior fascicular block; R94.31 Abnormal electrocardiogram [ECG] [EKG]
CPT/HCPCS: 36415; 71046; 74177; 80053; 83690; 84484; 85025; 85610; 85730; 93005; 96374; 96375; 99284; A9270; J1171; J2405; Q9967